=== PATIENT | male | born 1940 | race Caucasian/White ===

== ENCOUNTER 2016-06-04 15:48 | Inpatient (IN) | payer MEDICARE, BC ==
[2016-06-04] MEDS ORDERED: IV VANCOMYCIN PER PHARMACY 1 EACH MISC MISCELLANE PRN (19:38)
[2016-06-04] MEDS ORDERED: IPRATROPIUM-ALBUTEROL 3 ML NEB INHALATION PRN (19:38)
[2016-06-04] MEDS ORDERED: FLUTICASONE 50MCG/SPRAY NASAL 16GM EA NOSTRIL PRN (19:38)
[2016-06-04 20:01] LABS: Glucose,Whole Blood 172 mg/dL (75-99)
[2016-06-04] MEDS: IPRATROPIUM-ALBUTEROL 3 ML NEB INHALATION SCH (20:12)
[2016-06-04] MEDS: BUDESONIDE 1 MG/2 ML NEBU INHALATION SCH (20:13)
[2016-06-04] MEDS ORDERED: VANCOMYCIN 1,500 MG in SODIUM CHLORIDE 0.9% 250 ML IVPB ONE (20:15)
[2016-06-04] MEDS: HEPARIN SODIUM,PORCINE 5,000 UNIT/ML 1 ML VIAL SQ SCH (20:32)
[2016-06-04] MEDS: MELATONIN 3 MG TABLET PO SCH (20:33)
[2016-06-04] MEDS: MONTELUKAST 10 MG TAB PO SCH (20:34)
[2016-06-04 21:30] LABS: Anion Gap 9 mmol/L; Blood Urea Nitrogen 29 mg/dL (9-20); Calcium 8.6 mg/dL (8.4-10.2); Carbon Dioxide 33 mmol/L (22-30); Chloride 96 mmol/L (98-107); Glucose 185 mg/dL (74-99); Non-African American GFR(MDRD) >60 (>60 ml/min/1.73 sqM); Potassium 4.7 mmol/L (3.5-5.1); Sodium 138 mmol/L (137-145)
[2016-06-04] MEDS: INSULIN LISPRO (humaLOG) 300 UNIT/3 ML VIAL SQ SCH (21:30)
[2016-06-04] MEDS: ALPRAZolam 0.25 MG TAB PO PRN (21:31)
[2016-06-04] MEDS: VALSARTAN 80 MG TAB PO SCH (21:31)
[2016-06-04] MEDS: VALSARTAN 40 MG TAB PO SCH (21:31)
[2016-06-04] MEDS: ZILEUTON PO SCH (21:32)
[2016-06-04] MEDS: methylPREDNISolone SOD SUCCI 125 MG/2 ML VIAL IV SCH (23:43)
[2016-06-04] MEDS: CEFEPIME 2 GM in SODIUM CHLORIDE 0.9% 50 ML IVPB SCH (23:44)
[2016-06-05] MEDS: methylPREDNISolone SOD SUCCI 125 MG/2 ML VIAL IV SCH ×3 (05:43→17:24)
[2016-06-05] MEDS: CEFEPIME 2 GM in SODIUM CHLORIDE 0.9% 50 ML IVPB SCH ×2 (07:34→15:54)
[2016-06-05] MEDS: INSULIN LISPRO (humaLOG) 300 UNIT/3 ML VIAL SQ SCH ×4 (07:34→20:04)
[2016-06-05 07:35] LABS: Glucose,Whole Blood 131 mg/dL (75-99)
[2016-06-05] MEDS: IPRATROPIUM-ALBUTEROL 3 ML NEB INHALATION SCH ×4 (08:29→20:18)
[2016-06-05] MEDS: BUDESONIDE 1 MG/2 ML NEBU INHALATION SCH ×2 (08:29→20:19)
[2016-06-05 08:34] LABS: Basophils % (A) 0 %; CH 28.6; CHCM 31.5; Eosinophils % (A) 0 %; HCT 47.4 % (39.0-53.0); HDW 2.27; HGB 14.7 gm/dL (13.0-17.5); Luc # (Auto) 0.06; Luc % (Auto) 0; Lymphocytes # (A) 0.3 k/uL (1.0-4.8); Lymphocytes % (A) 2 %; MCH 28.1 pg (25.0-35.0); MCHC 30.9 g/dL (31.0-37.0); Mean Platelet Volume 6.8; Monocytes # (A) 0.2 k/uL (0-1.0); Monocytes % (A) 2 %; Neutrophils # (A) 12.1 k/uL (1.3-7.7); Neutrophils % (A) 95 %; RBC 5.21 m/uL (4.30-5.90); RDW 13.6 % (11.5-15.5); WBC 12.7 k/uL (3.8-10.6); WBC (Perox) 12.63
--- NOTE | 2016-06-05 08:46 | XR ---
EXAMINATION TYPE: XR chest 2V DATE OF EXAM: 06/05/2016 7:21 AM HISTORY: Shortness of breath. REFERENCE: Previous study dated 11/07/2015. FINDINGS: The lungs are overinflated. There is evidence of interstitial fibrosis. The heart is not en larged. There is chronic blunting of the CP angles. 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 IMPRESSION: 1. COPD. 2. INTERSTITIAL FIBROSIS. 3. FORESTIER'S DISEASE.
[2016-06-05 08:49] LABS: Anion Gap 8 mmol/L; Blood Urea Nitrogen 28 mg/dL (9-20); Calcium 8.5 mg/dL (8.4-10.2); Carbon Dioxide 31 mmol/L (22-30); Chloride 100 mmol/L (98-107); Glucose 138 mg/dL (74-99); Non-African American GFR(MDRD) >60 (>60 ml/min/1.73 sqM); Potassium 4.8 mmol/L (3.5-5.1); Sodium 139 mmol/L (137-145)
[2016-06-05] MEDS: VANCOMYCIN 1,500 MG in SODIUM CHLORIDE 0.9% 250 ML IVPB SCH ×2 (08:53→20:01)
[2016-06-05] MEDS: VALSARTAN 40 MG TAB PO SCH ×2 (08:53→20:10)
[2016-06-05] MEDS: ZILEUTON PO SCH ×2 (08:53→20:06)
[2016-06-05] MEDS: SERTRALINE 100 MG TAB PO SCH (08:53)
[2016-06-05] MEDS: HEPARIN SODIUM,PORCINE 5,000 UNIT/ML 1 ML VIAL SQ SCH ×2 (08:53→20:06)
[2016-06-05] MEDS: POLYETHYLENE GLYCOL 3350 17 GM POWD.PACK PO SCH (08:53)
[2016-06-05] MEDS: VALSARTAN 80 MG TAB PO SCH ×2 (08:53→20:10)
[2016-06-05] MEDS: PANTOPRAZOLE 40 MG/10 ML VIAL IVP SCH (08:53)
[2016-06-05] MEDS: ASPIRIN 81 MG CHEW PO SCH (08:53)
[2016-06-05] MEDS ORDERED: VALSARTAN 80 MG TAB PO SCH (09:00)
[2016-06-05 12:05] LABS: Glucose,Whole Blood 164 mg/dL (75-99)
[2016-06-05] MEDS: CHOLECALCIFEROL 1,000 UNIT TAB PO SCH (12:10)
[2016-06-05] MEDS ORDERED: TEMAZEPAM 15 MG CAP PO PRN (13:56)
[2016-06-05] MEDS ORDERED: NON-FORMULARY DRUG (Aspirin Ec 81 MG) PO SCH (14:00)
[2016-06-05 14:06] LABS: Hemoglobin A1C 5.9 % (4.2-6.1)
--- NOTE | 2016-06-05 14:06 | P.CNPUL ---
History of Present Illness Consult date: 06/05/16 Reason for consult: dyspnea, cough, COPD, pulmonary fibrosis Chief complaint: Shortness of breath History of present illness: This is a 75-year-old gentleman who was admitted initially to [facility]. The patient apparently was seen there by Dr. Michael and then transferred down to see us here. He has a history of underlying COPD and hypertension. He was seeing a new car sales manager in the [place] area. His new car sales manager is old and he states that he's going to retire soon and apparently Dr. Michael recommended that he come down here. I actually put him on the schedule to be seen on Wednesday and . He has a well-established history of COPD. He was a heavy smoker in the past. The patient also apparently has a history of alcohol abuse. The patient was taking out reasonably good medications but was overusing his Pulmicort which he uses sometimes 2 puffs 5 times a day. Pulmicort is a twice a day medication. Anyway he came into the hospital initially with complaints of shortness of breath chest tightness wheezing and cough. Coughing up some phlegm. Sounds like he may have some underlying pulmonary fibrosis and/or bronchiectasis. Review of Systems A 12 point review of system is positive for shortness of breath chest tightness wheezing cough phlegm production. His cough is reminiscent somebody with tracheal bronchomalacia is at [id number] vibratory or barky or seal-like. Past Medical History Past Medical History: Asthma, Hyperlipidemia, Hypertension, Myocardial Infarction (MT), Pneumonia Additional Past Medical History / Comment(s): chronic constipation, hemorrhoids , diverticulosis.home 02 2 liters n/c at hs and prn, partial sbo(no sx ) Last Myocardial Infarction Date:: 2004 History of Any Multi-Drug Resistant Organisms: None Reported Past Surgical History: Cholecystectomy, Coronary Bypass/CABG, Heart Catheterization Additional Past Surgical History / Comment(s): 12/20/13 colonoscopy, 2005 Cabg-4 vessel.rt cataract. Past Anesthesia/Blood Transfusion Reactions: No Reported Reaction Past Psychological History: No Psychological Hx Reported Additional Psychological History / Comment(s): Pt resides alone. He uses no assistive device. He drives. Smoking Status: Former smoker Past Alcohol Use History: Rare Additional Past Alcohol Use History / Comment(s): Pt states he started smoking at age 16 yrs and quit about 18 yrs ago, ([id number]) carton per week. Past Drug Use History: None Reported - Past Family History Mother Family Medical History: Hypertension Additional Family Medical History / Comment(s): Mother at the age of 88yrs. Father Family Medical History: Cancer Additional Family Medical History / Comment(s): Father of prostate cancer at the age of 65 yrs. Medications and Allergies Home Medications Medication Instructions Recorded Confirmed Type Ipratropium/Albuterol Sulfate 3 ml INHALATION RT-QID 12/13/13 06/04/16 History [Duoneb 0.5 mg-3 mg/3 ml Soln] Budesonide [Pulmicort Flexhaler] 2 puff INHALATION RT-BID 11/07/15 06/04/16 History Montelukast [Singulair] 10 mg PO HS 11/07/15 06/04/16 History Ranitidine HCl [Zantac] 150 mg PO BID 11/07/15 06/04/16 History Valsartan 80 mg PO BID 11/07/15 06/04/16 History Aspirin EC [Ecotrin Low Dose] 81 mg PO DAILY 06/04/16 06/04/16 History Levofloxacin [Levaquin] 500 mg PO DAILY 06/04/16 06/04/16 History Mometasone/Formoterol [Dulera 200 2 puff INHALATION RT-BID 06/04/16 06/04/16 History Mcg/5 Mcg Inhaler] Polyethylene Glycol 3350 [Miralax] 17 gm PO BID 06/04/16 06/04/16 History Sertraline [Zoloft] 100 mg PO DAILY 06/04/16 06/04/16 History Ubidecarenone [Co Q-10] 100 mg PO DAILY 06/04/16 06/04/16 History Valsartan [Diovan] 40 mg PO BID 06/04/16 06/04/16 History Zileuton [Zyflo Cr] 1,200 mg PO BID 06/04/16 06/04/16 History Allergies Allergy/AdvReac Type Severity Reaction Status Date / Time No Known Allergies Allergy Verified 06/04/16 19:24 Physical Exam Osteopathic Statement: *. No significant issues noted on an osteopathic structural exam other than those noted in the History and Physical/Consult. Vitals: Vital Signs Temp Pulse Pulse Resp BP Pulse Ox 06/05/16 12:25 88 06/05/16 12:17 88 06/05/16 08:45 86 06/05/16 08:29 80 06/05/16 07:00 97 F L 76 16 159/90 98 06/04/16 22:16 96.0 F L 88 16 160/82 97 06/04/16 20:21 96 06/04/16 20:16 94 95 Intake and Output 06/04/16 06/05/16 06/05/16 22:59 06:59 14:59 Intake Total 590 300 890 Balance 590 300 890 Intake: IV 300 410 Cefepime 2 gm In Sodium 50 50 Chloride 0.9% 50 ml @ 100 mls/hr IVPB Q8HR MARIO Rx# :[id number] NS @ 20 ml/hr 110 Vancomycin 1,500 mg In 250 250 Sodium Chloride 0.9% 250 ml @ 125 mls/hr IVPB ONCE ONE Rx#:[id number] Oral 590 480 Other: Voiding Method Urinal # Voids 2 2 Weight 81.647 kg No acute distress, oriented 3. The patient coughs frequently. Is somewhat congested sounding cough. Mucous membranes are moist. Supple. Full range of motion. Normal. No thyromegaly. Neck veins are flat. Cardiovascular examination reveals regular rhythm rate. S1-S2 normal. Lungs reveal coarse rhonchi. Breath sounds are diminished. There is prolongation on forced maneuver. The patient wheezes and coughs on forced maneuver. Abdomen soft bowel sounds are heard. Extremities are intact. Results - Laboratory Findings CBC and BMP: 06/05/16 07:47 06/05/16 07:47 Abnormal lab findings: Abnormal Labs 06/04/16 06/04/16 06/05/16 20:00 20:24 07:26 WBC MCHC Neutrophils # Lymphocytes # Chloride 96 L Carbon Dioxide 33 H BUN 29 H Creatinine Glucose 185 H POC Glucose (mg/dL) 172 H 131 H 06/05/16 06/05/16 06/05/16 07:47 07:47 11:58 WBC 12.7 H MCHC 30.9 L Neutrophils # 12.1 H Lymphocytes # 0.3 L Chloride Carbon Dioxide 31 H BUN 28 H Creatinine 0.64 L Glucose 138 H POC Glucose (mg/dL) 164 H - Diagnostic Findings Chest x-ray: image reviewed (We will evaluate the chest x-ray labs and medications.) Assessment and Plan Plan: Plan dated 06/05/2016 The patient's medications x-rays and labs are reviewed. We put him in the schedule for [facility] on Wednesday the at 9 AM. He'll need a full pulmonary function test a 6 minute walk distance. In the short-term, he needs DuoNeb 4 times a day. And when necessary Pulmicort 1 mg twice a day mixed with performance twice a day Solu-Medrol 60 every 6 and some pleural oral antibiotic. Also, a flutter valve would be important as would be something for cough. Additional recommendations suggestions are forthcoming. Prognosis is guarded. Time with Patient: Greater than 30
[2016-06-05] MEDS: BENZONATATE 100 MG CAP PO SCH ×2 (15:54→20:11)
[2016-06-05 16:42] LABS: Appearance,Urine Clear (Clear); Bacteria,Urine Rare /hpf; Bilirubin,Urine Negative (Negative); Glucose,Urine (UA) Negative (Negative); Ketones,Urine Negative (Negative); Leukocyte Esterase,Urine Negative (Negative); Mucus,Urine Rare /hpf; Nitrite,Urine Negative (Negative); Particle Count 1530; Protein,Urine 1+ (Negative); RBC,Urine 2 /hpf (0-5); Specific Gravity,Urine 1.026 (1.001-1.035); Squamous Epithelial Cell,Urine <1 /hpf (0-4); UA Billing (MACRO vs. MICRO) MICRO; Urobilinogen,Urine <2.0 mg/dL (<2.0); WBC,Urine 2 /hpf (0-5)
--- NOTE | 2016-06-05 16:44 | HP ---
DATE OF ADMISSION: 06/04/2016 CHIEF COMPLAINT: Shortness of breath and cough and sputum. HISTORY OF PRESENT ILLNESS: This 75-year-old gentleman with past medical history of asthma, chronic obstructive pulmonary disease, hypertension, hyperlipidemia, history of chronic constipation, hemorrhoids, history of coronary artery disease, coronary artery bypass grafting, being followed by ham doctor in [place] was admitted to [facility] for the last 4 or 5 days because of shortness of breath and COPD and tracheobronchitis. Because of the lack of improvement, the patient was referred to [facility] the patient was admitted to the hospital for further evaluation and treatment. There is no history of fever, rigors or chills. No history of headache, loss of consciousness or seizures. Chest x-ray showed interstitial fibrosis and Dr. Rosen's evaluation in progress also. Past medical history of asthma, hypertension, hyperlipidemia, history of myocardial infarction, history of pneumonia, history of COPD, history of chronic diverticulosis, CAD, CABG, cholecystectomy, history of cardiac catheterization. Medications prior to admission include home medications are: 1. Zyflozr 1200 mg p.o. b.i.d. 2. Dulera 200/5, 2 puffs b.i.d. 3. Levaquin 500 mg daily. 4. Coenzyme Q 100 mg daily. 5. Zoloft 20 mg daily. 6. Diovan 40 mg p.o. b.i.d. 7. Valsartan 80 mg p.o. b.i.d. 8. Zantac 150 mg p.o. b.i.d. 9. Miralax 17 gm p.o. b.i.d. 10. Singulair 10 mg q.h.s. 11. DuoNeb q.i.d. and p.r.n. 12. Pulmicort 2 puffs b.i.d. 13. Ecotrin 81 mg p.o. daily. ALLERGIES: None. FAMILY HISTORY: History of hypertension in the family. Mother of 88. SOCIAL HISTORY: Remote history of smoking. Occasional alcohol intake. REVIEW OF SYSTEMS: ENT: The patient uses glasses. Otherwise, no diminished hearing. CARDIOVASCULAR: No angina or palpitations. RESPIRATORY: As mentioned earlier. GI: As mentioned earlier. GENITOURINARY: No dysuria or retention. CENTRAL NERVOUS SYSTEM: No numbness or weakness. ALLERGY/IMMUNOLOGY: As mentioned earlier. HEMATOLOGY/ONCOLOGY: History of anemia. ENDOCRINE: No history of diabetes, hypothyroidism. CONSTITUTIONAL: As mentioned earlier. Dermatology: Negative. Rheumatology: Negative. PSYCHIATRY: As mentioned earlier. PHYSICAL EXAMINATION: The patient is alert and oriented times three. Pulse is 80. The blood pressure is 159/96, temperature 97 degrees, pulse ox 98% on room air. HEENT: Conjunctivae normal. NECK: No jugular venous distention. No carotid bruit. No lymph node enlargement. CARDIOVASCULAR: S1, S2 muffled. No S3, no S4. RESPIRATORY: Breath sounds diminished at the bases. Bilateral scattered rhonchi and crackles and early also in the posterior part. Otherwise, expiratory wheezing also present. Chest is mildly emphysematous. ABDOMEN: Soft, nontender. No mass palpable. Legs: No edema, no swelling. Nervous system: Higher function as mentioned. Cranial nerves II through XII grossly intact. No focal motor or sensory deficits. LYMPHATICS: No lymph nodes palpable in the neck, axillae or groin. SKIN: No ulcer, rash or bleeding. Labs at this time WBC 12.7, hemoglobin is 14.7, sodium 139, potassium 4.8. Glucose noted. ASSESSMENT: 1. Chronic obstructive pulmonary disease, acute exacerbation, with acute purulent tracheobronchitis or bronchopneumonia bilateral. Possibly interstitial fibrosis. 2. disease in the spine. 3. Increased WBC. 4. Remote history of nicotine dependence. 5. Increased random blood sugar, possibly secondary to steroids. 6. History of asthma. 7. Hyperlipidemia. 8. Hypertension. 9. History of myocardial infarction. 10. History of pneumonia. 11. History of chronic constipation. 12. History of diverticulosis. 13. Chronic hypoxic respiratory failure on 2 liters home O2 nasal cannula. 14. Coronary artery disease, coronary artery bypass grafting. 15. History of cholecystectomy. 16. Remote history nicotine dependence. 17. FULL CODE. RECOMMENDATIONS AND DISCUSSION: In this 75-year-old gentleman who presented with multiple complex medical issues, we will monitor the patient closely. Continue the current medications. Continue symptomatic treatment. We will optimize the bronchodilator treatment, continue with IV steroids and empiric antibiotics. Otherwise consult Dr. Rosen. Resume the home medications. DVT prophylaxis. Guarded prognosis because of multiple complex medical issues. Further recommendations to follow. See orders for further details. The patient was started on Cefepime, IV Cefepime and vancomycin. Continue to monitor. MTDD
[2016-06-05 17:44] LABS: Glucose,Whole Blood 130 mg/dL (75-99)
[2016-06-05 20:03] LABS: Glucose,Whole Blood 262 mg/dL (75-99)
[2016-06-05] MEDS: MELATONIN 3 MG TABLET PO SCH (20:06)
[2016-06-05] MEDS: FAMOTIDINE 20 MG TAB PO SCH (20:06)
[2016-06-05] MEDS: MONTELUKAST 10 MG TAB PO SCH (20:06)
[2016-06-05] MEDS: FORMOTEROL FUMARATE 20 MCG/2 ML NEBU INHALATION SCH (20:19)
[2016-06-05] MEDS: ALPRAZolam 0.25 MG TAB PO PRN (20:53)
[2016-06-06] MEDS: methylPREDNISolone SOD SUCCI 125 MG/2 ML VIAL IV SCH ×4 (00:07→17:08)
[2016-06-06] MEDS: CEFEPIME 2 GM in SODIUM CHLORIDE 0.9% 50 ML IVPB SCH ×3 (00:07→15:25)
[2016-06-06] MEDS ORDERED: VANCOMYCIN TROUGH DUE 1 EACH MISC MISCELLANE ONE (07:00)
[2016-06-06 07:07] LABS: Glucose,Whole Blood 119 mg/dL (75-99)
[2016-06-06 07:33] LABS: Basophils % (A) 0 %; CH 28.8; CHCM 32.2; Eosinophils % (A) 0 %; HCT 43.9 % (39.0-53.0); HDW 2.31; HGB 13.7 gm/dL (13.0-17.5); Luc # (Auto) 0.09; Luc % (Auto) 1; Lymphocytes # (A) 0.3 k/uL (1.0-4.8); Lymphocytes % (A) 2 %; MCH 28.1 pg (25.0-35.0); MCHC 31.2 g/dL (31.0-37.0); MCV 89.9 fL (80.0-100.0); Mean Platelet Volume 6.7; Monocytes # (A) 0.3 k/uL (0-1.0); Monocytes % (A) 2 %; Neutrophils # (A) 15.1 k/uL (1.3-7.7); Neutrophils % (A) 95 %; RBC 4.88 m/uL (4.30-5.90); RDW 13.7 % (11.5-15.5); WBC 15.8 k/uL (3.8-10.6); WBC (Perox) 16.44
[2016-06-06 07:36] LABS: ALT 31 U/L (21-72); AST 14 U/L (17-59); Alkaline Phosphatase 57 U/L (38-126); Anion Gap 3 mmol/L; Bilirubin, Delta 0.2 mg/dL (0.0-0.2); Blood Urea Nitrogen 27 mg/dL (9-20); Calcium 8.1 mg/dL (8.4-10.2); Carbon Dioxide 32 mmol/L (22-30); Chloride 101 mmol/L (98-107); Glucose 133 mg/dL (74-99); Non-African American GFR(MDRD) >60 (>60 ml/min/1.73 sqM); Potassium 4.6 mmol/L (3.5-5.1); Sodium 136 mmol/L (137-145); Total Bilirubin 0.6 mg/dL (0.2-1.3)
[2016-06-06] MEDS: HEPARIN SODIUM,PORCINE 5,000 UNIT/ML 1 ML VIAL SQ SCH ×2 (07:41→20:17)
[2016-06-06] MEDS: BENZONATATE 100 MG CAP PO SCH ×3 (07:41→20:19)
[2016-06-06] MEDS: FAMOTIDINE 20 MG TAB PO SCH ×2 (07:41→20:17)
[2016-06-06] MEDS: ASPIRIN 81 MG CHEW PO SCH (07:41)
[2016-06-06] MEDS: ZILEUTON PO SCH ×2 (07:42→20:16)
[2016-06-06] MEDS: PANTOPRAZOLE 40 MG/10 ML VIAL IVP SCH (07:42)
[2016-06-06] MEDS: POLYETHYLENE GLYCOL 3350 17 GM POWD.PACK PO SCH (07:43)
[2016-06-06] MEDS: VALSARTAN 40 MG TAB PO SCH ×2 (07:44→20:19)
[2016-06-06] MEDS: SERTRALINE 100 MG TAB PO SCH (07:44)
[2016-06-06] MEDS: VALSARTAN 80 MG TAB PO SCH ×2 (07:44→20:18)
[2016-06-06] MEDS: INSULIN LISPRO (humaLOG) 300 UNIT/3 ML VIAL SQ SCH ×4 (07:52→20:19)
[2016-06-06] MEDS ORDERED: NON-FORMULARY DRUG (Ubidecarenone [Co Q-10] 100 MG) PO SCH (09:00)
[2016-06-06] MEDS: IPRATROPIUM-ALBUTEROL 3 ML NEB INHALATION SCH ×4 (09:00→19:13)
[2016-06-06] MEDS: BUDESONIDE 1 MG/2 ML NEBU INHALATION SCH ×2 (09:00→19:13)
[2016-06-06] MEDS: FORMOTEROL FUMARATE 20 MCG/2 ML NEBU INHALATION SCH ×2 (09:00→19:13)
[2016-06-06] MEDS: VANCOMYCIN 1,500 MG in SODIUM CHLORIDE 0.9% 250 ML IVPB SCH (09:30)
[2016-06-06] MEDS: CHOLECALCIFEROL 1,000 UNIT TAB PO SCH (11:21)
[2016-06-06] MEDS: MULTIVITAMINS, THERA 1 EACH TAB PO SCH (11:21)
[2016-06-06 12:01] LABS: Glucose,Whole Blood 130 mg/dL (75-99)
--- NOTE | 2016-06-06 13:05 | P.PN ---
Subjective 75-year-old gentleman with a history of underlying COPD and tracheal bronchomalacia. Transferred down from [facility]. Doing better today. I'm planning to see him in to [place] [facility] on Wednesday. He is on all the usual medications. Feeling much better. Probably could be discharged here tomorrow or Wednesday. His complaints included cough wheezing shortness of breath and phlegm production. These have all been reduced since we started seeing him. Objective - Vital Signs Vital signs: Vital Signs Temp 97.4 F L 06/06/16 07:00 Pulse 92 06/06/16 12:52 Resp 16 06/06/16 08:00 BP 163/82 06/06/16 07:00 Pulse Ox 97 06/06/16 07:00 Intake & Output 06/05/16 06/06/16 06/06/16 18:59 06:59 18:59 Intake Total 1370 985 Balance 1370 985 Intake: IV 410 385 Cefepime 2 gm In Sodium 50 Chloride 0.9% 50 ml @ 100 mls/hr IVPB Q8HR MARIO Rx# :[id number] NS @ 20 ml/hr 110 260 Vancomycin 1,500 mg In 250 125 Sodium Chloride 0.9% 250 ml @ 125 mls/hr IVPB ONCE ONE Rx#:[id number] Oral 960 600 Other: Voiding Method Urinal Urinal # Voids 1 1 - Exam No acute distress, oriented 3. HEENT examination is grossly unremarkable. Mucous membranes are moist. Neck supple. Full range of motion. No adenopathy. Cardio vascular examination reveals distant heart sounds. Heart sounds are obscured by loud abnormal lung sounds. S1 and S2 appear normal. No murmur. Lungs reveal some diffuse scattered rhonchi. There are improved. Breath sounds are diminished. A few scattered crackles. Some expiratory wheezes noted on forced maneuver. Abdomen soft Extremities are intact. - Labs CBC & Chem 7: 06/06/16 06:58 06/06/16 06:58 Labs: Abnormal Lab Results - Last 24 Hours (Table) 06/05/16 06/05/16 06/05/16 Range/Units 16:30 17:09 20:02 WBC (3.8-10.6) k/uL Neutrophils # (1.3-7.7) k/uL Lymphocytes # (1.0-4.8) k/uL Sodium (137-145) mmol/L Carbon Dioxide (22-30) mmol/L BUN (9-20) mg/dL Creatinine (0.66-1.25) mg/dL Glucose (74-99) mg/dL POC Glucose (mg/dL) 130 H 262 H (75-99) mg/dL Calcium (8.4-10.2) mg/dL AST (17-59) U/L Total Protein (6.3-8.2) g/dL Albumin (3.5-5.0) g/dL Urine Protein 1+ H (Negative) Urine Bacteria Rare H (None) /hpf Hyaline Casts 4 H (0-2) /lpf Urine Mucus Rare H (None) /hpf 06/06/16 06/06/16 06/06/16 Range/Units 06:58 06:58 06:58 WBC 15.8 H (3.8-10.6) k/uL Neutrophils # 15.1 H (1.3-7.7) k/uL Lymphocytes # 0.3 L (1.0-4.8) k/uL Sodium 136 L (137-145) mmol/L Carbon Dioxide 32 H (22-30) mmol/L BUN 27 H (9-20) mg/dL Creatinine 0.60 L (0.66-1.25) mg/dL Glucose 133 H (74-99) mg/dL POC Glucose (mg/dL) 119 H (75-99) mg/dL Calcium 8.1 L (8.4-10.2) mg/dL AST 14 L (17-59) U/L Total Protein 5.0 L (6.3-8.2) g/dL Albumin 2.7 L (3.5-5.0) g/dL Urine Protein (Negative) Urine Bacteria (None) /hpf Hyaline Casts (0-2) /lpf Urine Mucus (None) /hpf 06/06/16 Range/Units 11:41 WBC (3.8-10.6) k/uL Neutrophils # (1.3-7.7) k/uL Lymphocytes # (1.0-4.8) k/uL Sodium (137-145) mmol/L Carbon Dioxide (22-30) mmol/L BUN (9-20) mg/dL Creatinine (0.66-1.25) mg/dL Glucose (74-99) mg/dL POC Glucose (mg/dL) 130 H (75-99) mg/dL Calcium (8.4-10.2) mg/dL AST (17-59) U/L Total Protein (6.3-8.2) g/dL Albumin (3.5-5.0) g/dL Urine Protein (Negative) Urine Bacteria (None) /hpf Hyaline Casts (0-2) /lpf Urine Mucus (None) /hpf Assessment and Plan (1) COPD with exacerbation Status: Acute Plan: Plan dated 06/05/2016 The patient's medications x-rays and labs are reviewed. We put him in the schedule for [facility] on Wednesday the at 9 AM. He'll need a full pulmonary function test a 6 minute walk distance. In the short-term, he needs DuoNeb 4 times a day. And when necessary Pulmicort 1 mg twice a day mixed with performance twice a day Solu-Medrol 60 every 6 and some pleural oral antibiotic. Also, a flutter valve would be important as would be something for cough. Additional recommendations suggestions are forthcoming. Prognosis is guarded. Plan dated 06/06/2016 The patient is doing better. Hopefully discharge either Wednesday or Wednesday. Hopefully see him in to [facility] on Wednesday at 9 AM. We' ll continue to follow. Prognosis is guarded. I suspect he'll get out of the hospital in the next day or so. Time with Patient: Less than 30
[2016-06-06 16:44] LABS: Glucose,Whole Blood 174 mg/dL (75-99)
[2016-06-06 20:01] LABS: Glucose,Whole Blood 160 mg/dL (75-99)
[2016-06-06] MEDS: MONTELUKAST 10 MG TAB PO SCH (20:17)
[2016-06-06] MEDS: MELATONIN 3 MG TABLET PO SCH (20:17)
--- NOTE | 2016-06-06 20:19 | PN ---
DATE OF SERVICE: 06/06/2016 This 75-year-old gentleman was admitted exacerbation, also had a possible bronchopneumonia. The patient has some shortness of breath and cough. No chest pain. No palpitations. No fever. On exam, alert and oriented times three. Pulse is 92, blood pressure 160/82, respiratory rate 16, temperature 97.4, pulse ox 97% on room air. HEENT: Conjunctivae normal . NECK: No JVD. CARDIOVASCULAR: S1, S2 muffled. RESPIRATORY: Breath sounds diminished in the bases. Bilateral scattered rhonchi and crackles. ABDOMEN: Soft, nontender. No mass palpable. LEGS: No edema. No swelling. CENTRAL NERVOUS SYSTEM: No focal deficits. LABS: At this time show WBC 15.8, hemoglobin 13.0, sodium 136. Albumin is 2.7. Other labs noted. ASSESSMENT : 1. Chronic obstructive pulmonary disease exacerbation, with acute purulent tracheobronchitis or bronchopneumonia with bilateral possible interstitial fibrosis with failure of outpatient treatment. 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 3. Increased WBC. 4. Remote history of nicotine dependence. 5. Increased random blood sugar, possibly secondary to steroids. 6. History of asthma. 7. Hyperlipidemia. 8. Hypertension. 9. History of myocardial infarction. 10. History of pneumonia. 11. History of chronic constipation. 12. History of diverticulosis. 13. Chronic hypoxic respiratory failure on 2 liters home O2 nasal cannula. 14. History of coronary artery disease, coronary artery bypass grafting. 15. History of cholecystectomy. 16. Remote history of nicotine dependence. 17. FULL CODE. RECOMMENDATIONS AND DISCUSSION: In this 75-year-old gentleman who presented with multiple complex medical issues, we will monitor the patient closely. Continue the current medications, continue symptomatic treatment. At this time, I recommend to continue with broad-spectrum IV antibiotics, bronchodilators, continue with IV steroids. Closely follow with Dr. Rosen. Guarded prognosis because of multiple complex medical issues. Further recommendations to follow.
[2016-06-06] MEDS: VANCOMYCIN 1,750 MG in SODIUM CHLORIDE 0.9% 250 ML IVPB SCH (20:25)
[2016-06-06] MEDS: ALPRAZolam 0.25 MG TAB PO PRN (20:25)
[2016-06-07] MEDS: CEFEPIME 2 GM in SODIUM CHLORIDE 0.9% 50 ML IVPB SCH ×4 (00:06→23:40)
[2016-06-07] MEDS: methylPREDNISolone SOD SUCCI 125 MG/2 ML VIAL IV SCH ×3 (00:11→12:31)
[2016-06-07 07:06] LABS: Glucose,Whole Blood 122 mg/dL (75-99)
[2016-06-07 07:16] LABS: Basophils % (A) 0 %; CH 28.8; CHCM 32.2; Eosinophils % (A) 0 %; HCT 41.3 % (39.0-53.0); HGB 13.4 gm/dL (13.0-17.5); Luc # (Auto) 0.09; Luc % (Auto) 1; Lymphocytes # (A) 0.2 k/uL (1.0-4.8); Lymphocytes % (A) 2 %; MCH 29.1 pg (25.0-35.0); MCHC 32.4 g/dL (31.0-37.0); MCV 89.8 fL (80.0-100.0); Mean Platelet Volume 6.7; Monocytes # (A) 0.3 k/uL (0-1.0); Monocytes % (A) 3 %; Neutrophils # (A) 9.5 k/uL (1.3-7.7); Neutrophils % (A) 94 %; RDW 13.7 % (11.5-15.5); WBC 10.1 k/uL (3.8-10.6); WBC (Perox) 10.75
[2016-06-07 07:29] LABS: Anion Gap 4 mmol/L; Blood Urea Nitrogen 24 mg/dL (9-20); Carbon Dioxide 32 mmol/L (22-30); Chloride 100 mmol/L (98-107); Glucose 135 mg/dL (74-99); Non-African American GFR(MDRD) >60 (>60 ml/min/1.73 sqM); Potassium 4.7 mmol/L (3.5-5.1); Sodium 136 mmol/L (137-145)
[2016-06-07] MEDS: VANCOMYCIN 1,750 MG in SODIUM CHLORIDE 0.9% 250 ML IVPB SCH ×2 (07:58→19:30)
[2016-06-07] MEDS: INSULIN LISPRO (humaLOG) 300 UNIT/3 ML VIAL SQ SCH ×4 (08:02→20:27)
[2016-06-07] MEDS: FAMOTIDINE 20 MG TAB PO SCH ×2 (08:04→20:27)
[2016-06-07] MEDS: BENZONATATE 100 MG CAP PO SCH ×3 (08:04→20:25)
[2016-06-07] MEDS: ASPIRIN 81 MG CHEW PO SCH (08:04)
[2016-06-07] MEDS: HEPARIN SODIUM,PORCINE 5,000 UNIT/ML 1 ML VIAL SQ SCH ×2 (08:04→20:27)
[2016-06-07] MEDS: SERTRALINE 100 MG TAB PO SCH (08:05)
[2016-06-07] MEDS: POLYETHYLENE GLYCOL 3350 17 GM POWD.PACK PO SCH (08:05)
[2016-06-07] MEDS: ZILEUTON PO SCH ×2 (08:05→20:26)
[2016-06-07] MEDS: VALSARTAN 40 MG TAB PO SCH ×2 (08:06→20:26)
[2016-06-07] MEDS: VALSARTAN 160 MG TAB PO SCH ×2 (08:08→20:25)
[2016-06-07] MEDS: BUDESONIDE 1 MG/2 ML NEBU INHALATION SCH ×2 (09:06→19:18)
[2016-06-07] MEDS: IPRATROPIUM-ALBUTEROL 3 ML NEB INHALATION SCH ×4 (09:06→19:18)
[2016-06-07] MEDS: FORMOTEROL FUMARATE 20 MCG/2 ML NEBU INHALATION SCH ×2 (09:06→19:18)
[2016-06-07 11:32] LABS: Glucose,Whole Blood 133 mg/dL (75-99)
[2016-06-07] MEDS: MULTIVITAMINS, THERA 1 EACH TAB PO SCH (12:31)
[2016-06-07] MEDS: CHOLECALCIFEROL 1,000 UNIT TAB PO SCH (12:31)
[2016-06-07] MEDS: HYDROcodone/APAP 5-325MG 1 EACH TAB PO PRN ×2 (13:28→18:49)
--- NOTE | 2016-06-07 14:46 | P.PN ---
Subjective 75-year-old gentleman with a history of underlying COPD and tracheal bronchomalacia. Transferred down from [facility]. Doing better today. I'm planning to see him in to [place] [facility] on Wednesday. He is on all the usual medications. Feeling much better. Probably could be discharged here tomorrow or Wednesday. His complaints included cough wheezing shortness of breath and phlegm production. These have all been reduced since we started seeing him. Progress note dated 06/07/2016 This is a 75-year-old male with a history of COPD and tracheal bronchomalacia. He was transferred down from [facility]. Doing much better. Feeling much better. Still short of breath. I told him that he come see me in the [place] [facility] on Wednesday in the morning. Hopefully get out here before then. So wheezing. Still congested. Still short of breath. Coughing up some phlegm. No fever no chills. No nausea vomiting or diarrhea. Objective - Vital Signs Vital signs: Vital Signs Temp 97.7 F 06/07/16 07:00 Pulse 84 06/07/16 12:45 Resp 18 06/07/16 07:00 BP 171/79 06/07/16 07:00 Pulse Ox 95 06/07/16 07:00 Intake & Output 06/06/16 06/07/16 06/07/16 18:59 06:59 18:59 Intake Total 440 1030 446 Output Total 650 350 Balance 440 380 96 Intake: IV 190 200 196 Cefepime 2 gm In Sodium 50 50 Chloride 0.9% 50 ml @ 100 mls/hr IVPB Q8HR MARIO Rx# :[id number] NS @ 20 ml/hr 140 200 146 Intake, IV Titration 250 250 Amount Vancomycin 1,750 mg In 250 250 Sodium Chloride 0.9% 250 ml @ 125 mls/hr IVPB Q12H MARIO Rx#:[id number] Oral 830 Output: Urine 650 350 Other: Voiding Method Toilet Toilet Urinal Urinal # Voids 3 2 4 # Bowel Movements 1 1 - Exam No acute distress, oriented 3. HEENT examination is grossly unremarkable. Mucous membranes are moist. Neck supple. Full range of motion. No adenopathy. Cardio vascular examination reveals distant heart sounds. Heart sounds are obscured by loud abnormal lung sounds. S1 and S2 appear normal. No murmur. Lungs reveal some diffuse scattered rhonchi. There are improved. Breath sounds are diminished. A few scattered crackles. Some expiratory wheezes noted on forced maneuver. Abdomen soft Extremities are intact. - Labs CBC & Chem 7: 06/07/16 06:48 06/07/16 06:48 Labs: Abnormal Lab Results - Last 24 Hours (Table) 06/06/16 06/06/16 06/07/16 Range/Units 16:42 20:00 06:48 Neutrophils # 9.5 H (1.3-7.7) k/uL Lymphocytes # 0.2 L (1.0-4.8) k/uL Sodium (137-145) mmol/L Carbon Dioxide (22-30) mmol/L BUN (9-20) mg/dL Creatinine (0.66-1.25) mg/dL Glucose (74-99) mg/dL POC Glucose (mg/dL) 174 H 160 H (75-99) mg/dL Calcium (8.4-10.2) mg/dL 06/07/16 06/07/16 06/07/16 Range/Units 06:48 07:06 11:31 Neutrophils # (1.3-7.7) k/uL Lymphocytes # (1.0-4.8) k/uL Sodium 136 L (137-145) mmol/L Carbon Dioxide 32 H (22-30) mmol/L BUN 24 H (9-20) mg/dL Creatinine 0.63 L (0.66-1.25) mg/dL Glucose 135 H (74-99) mg/dL POC Glucose (mg/dL) 122 H 133 H (75-99) mg/dL Calcium 8.0 L (8.4-10.2) mg/dL Assessment and Plan (1) COPD with exacerbation Status: Acute Plan: Plan dated 06/05/2016 The patient's medications x-rays and labs are reviewed. We put him in the schedule for [facility] on Wednesday the at 9 AM. He'll need a full pulmonary function test a 6 minute walk distance. In the short-term, he needs DuoNeb 4 times a day. And when necessary Pulmicort 1 mg twice a day mixed with performance twice a day Solu-Medrol 60 every 6 and some pleural oral antibiotic. Also, a flutter valve would be important as would be something for cough. Additional recommendations suggestions are forthcoming. Prognosis is guarded. Plan dated 06/06/2016 The patient is doing better. Hopefully discharge either Wednesday or Wednesday. Hopefully see him in to [facility] on Wednesday at 9 AM. We' ll continue to follow. Prognosis is guarded. I suspect he'll get out of the hospital in the next day or so. Plan dated 06/07/2016 The patient does seem to be improving. Will continue on her current medications including short acting beta agonists short acting muscarinic antagonist long-acting beta agonist inhaled corticosteroids and systemic corticosteroids. Also on antibiotics. The flutter valve is helping. Hopefully he'll be up with see me on Wednesday morning it [facility]. Time with Patient: Less than 30
[2016-06-07] MEDS: hydrALAZINE HCL 20 MG/ML 1 ML VIAL IVP PRN (15:40)
[2016-06-07 16:28] LABS: Glucose,Whole Blood 125 mg/dL (75-99)
[2016-06-07] MEDS: methylPREDNISolone SOD SUCCI 40 MG/ML 1 ML VIAL IV SCH ×2 (16:29→23:41)
[2016-06-07 20:16] LABS: Glucose,Whole Blood 195 mg/dL (75-99)
[2016-06-07] MEDS: MELATONIN 3 MG TABLET PO SCH (20:24)
[2016-06-07] MEDS: MONTELUKAST 10 MG TAB PO SCH (20:28)
[2016-06-07] MEDS: ALPRAZolam 0.25 MG TAB PO PRN (20:33)
[2016-06-08] MEDS: VALSARTAN 160 MG TAB PO SCH ×2 (06:57→20:27)
[2016-06-08] MEDS: VALSARTAN 40 MG TAB PO SCH ×2 (06:57→20:26)
[2016-06-08 07:10] LABS: Glucose,Whole Blood 97 mg/dL (75-99)
--- NOTE | 2016-06-08 07:47 | PN ---
DATE OF SERVICE: 06/07/2016 This 75 -year-old gentleman was admitted to the hospital with COPD acute exacerbation is improving significantly. No chest pain. No palpitations. No fever. The patient has some cough and sputum also. On exam, alert and oriented times three. Pulse is 86, blood pressure ntd respirations 18. Temperature normal. Pulse ox 94% on 3 L. Temperature 97.7. HEENT: Conjunctivae normal. Oral mucosa moist. NECK: No jugular venous distention. No carotid bruit. No lymph node enlargement. CARDIOVASCULAR: S1, S2 muffled. RESPIRATORY: Breath sounds diminished at the bases. Bilateral scattered rhonchi. Expiratory wheezing also. Come crackles also present. ABDOMEN: Soft, nontender, no mass palpable. LEGS: No edema. No swelling. CENTRAL NERVOUS SYSTEM: No focal deficits. Labs are CBC within normal limits. Sodium 136. ASSESSMENT: 1. Chronic obstructive pulmonary disease, acute exacerbation, with acute purulent tracheobronchitis or bronchopneumonia with bilateral possible interstitial fibrosis with failure of outpatient treatment. 2. Forestiers disease of the spine. 3. Increased WBC. 4. Remote history of nicotine dependence. 5. Increased random blood sugar, possibly secondary to steroids. 6. History of asthma. 7. Hypertension. 8. History of hyperlipidemia. 9. History of myocardial infarction. 10. History of pneumonia. 11. History of chronic constipation. 12. History of diverticulosis. 13. Chronic hypoxic respiratory failure on 2 liters home O2 nasal cannula. 14. History of coronary artery disease, coronary artery bypass grafting. 15. History of cholecystectomy. 16. Remote history of nicotine dependence. 17. FULL CODE. RECOMMENDATIONS AND DISCUSSION: In this 75 -year-old gentleman who multiple complex medical issues, we will monitor the patient closely, continue the current medications, continue with symptomatic treatment. Otherwise, at this time, I would recommend to taper the steroids. Closely follow with Dr. Rosen. Increase ambulation. Check for home oxygen. Guarded prognosis because of multiple complex medical issues. Further recommendations to follow. MTDD
[2016-06-08 08:18] LABS: Basophils % (A) 0 %; CH 28.7; CHCM 31.7; Eosinophils % (A) 0 %; HCT 46.2 % (39.0-53.0); HDW 2.26; HGB 14.5 gm/dL (13.0-17.5); Luc % (Auto) 2; Lymphocytes # (A) 0.3 k/uL (1.0-4.8); Lymphocytes % (A) 3 %; MCH 28.5 pg (25.0-35.0); MCHC 31.4 g/dL (31.0-37.0); MCV 90.8 fL (80.0-100.0); Mean Platelet Volume 6.6; Monocytes # (A) 0.7 k/uL (0-1.0); Monocytes % (A) 7 %; Neutrophils # (A) 8.8 k/uL (1.3-7.7); Neutrophils % (A) 88 %; RBC 5.09 m/uL (4.30-5.90); RDW 13.8 % (11.5-15.5); WBC 9.9 k/uL (3.8-10.6); WBC (Perox) 10.31
[2016-06-08] MEDS: BUDESONIDE 1 MG/2 ML NEBU INHALATION SCH ×2 (08:27→20:05)
[2016-06-08] MEDS: FORMOTEROL FUMARATE 20 MCG/2 ML NEBU INHALATION SCH ×2 (08:27→20:05)
[2016-06-08] MEDS: IPRATROPIUM-ALBUTEROL 3 ML NEB INHALATION SCH ×4 (08:27→20:05)
[2016-06-08] MEDS: INSULIN LISPRO (humaLOG) 300 UNIT/3 ML VIAL SQ SCH ×4 (08:30→20:22)
[2016-06-08] MEDS: methylPREDNISolone SOD SUCCI 40 MG/ML 1 ML VIAL IV SCH (08:31)
[2016-06-08 08:32] LABS: Anion Gap 6 mmol/L; Blood Urea Nitrogen 25 mg/dL (9-20); Calcium 8.2 mg/dL (8.4-10.2); Carbon Dioxide 29 mmol/L (22-30); Chloride 101 mmol/L (98-107); Glucose 99 mg/dL (74-99); Non-African American GFR(MDRD) >60 (>60 ml/min/1.73 sqM); Potassium 4.8 mmol/L (3.5-5.1); Sodium 136 mmol/L (137-145)
[2016-06-08] MEDS: ASPIRIN 81 MG CHEW PO SCH (08:32)
[2016-06-08] MEDS: CEFEPIME 2 GM in SODIUM CHLORIDE 0.9% 50 ML IVPB SCH ×3 (08:32→23:10)
[2016-06-08] MEDS: FAMOTIDINE 20 MG TAB PO SCH ×2 (08:33→20:27)
[2016-06-08] MEDS: BENZONATATE 100 MG CAP PO SCH ×3 (08:33→20:26)
[2016-06-08] MEDS: POLYETHYLENE GLYCOL 3350 17 GM POWD.PACK PO SCH (08:33)
[2016-06-08] MEDS: HEPARIN SODIUM,PORCINE 5,000 UNIT/ML 1 ML VIAL SQ SCH ×2 (08:33→20:27)
[2016-06-08] MEDS: ZILEUTON PO SCH ×2 (08:33→20:25)
[2016-06-08] MEDS: SERTRALINE 100 MG TAB PO SCH (08:34)
[2016-06-08] MEDS: hydrALAZINE HCL 20 MG/ML 1 ML VIAL IVP PRN (08:52)
[2016-06-08] MEDS: VANCOMYCIN 1,750 MG in SODIUM CHLORIDE 0.9% 250 ML IVPB SCH ×2 (09:33→19:29)
[2016-06-08] MEDS ORDERED: RX INFO: IV CONTRAST WAS GIVEN 1 EACH MISC MISCELLANE PRN (10:12)
[2016-06-08 11:40] LABS: Glucose,Whole Blood 107 mg/dL (75-99)
--- NOTE | 2016-06-08 11:43 | CT ---
EXAMINATION TYPE: CT chest angio for PE DATE OF EXAM: 06/08/2016 11:33 AM COMPARISON: NONE HISTORY: progressive dyspnea, hypoxia, sob CT DLP: 308.4 mGycm CONTRAST: CT chest with contrast and 3D reconstruction with MIP imaging is performed with IV Contrast, patient injected with 100 mL of Omnipaque 350. Contrast-enhanced CT of the chest was performed through the course of the pulmonary arteries with mahogany g and mediastinal window settings submitted. 3D reconstruction with MIP imaging was also performed. PULMONARY ARTERIES: The pulmonary arteries and their major tributaries are patent. I do not see fany dence for sizable filling defect to suggest pulmonary embolic process. LUNGS: The lungs are hyperinflated compatible with COPD. Severe centrilobular emphysema noted. Nodula r pleural parenchymal scarring left lung base. MEDIASTINUM: Thoracic aorta is of normal caliber . The heart is not enlarged. No evidence for media stinal mass. No mediastinal lymph nodes greater than 1cm. HILAR STRUCTURES: No evidence for mass. No hilar lymph nodes greater than 1 cm. UPPER ABDOMEN: No significant abnormality is seen. IMPRESSION: 1. No evidence for Pulmonary embolism at this time.
[2016-06-08] MEDS: MULTIVITAMINS, THERA 1 EACH TAB PO SCH (12:48)
[2016-06-08] MEDS: CHOLECALCIFEROL 1,000 UNIT TAB PO SCH (12:48)
[2016-06-08 17:16] LABS: Glucose,Whole Blood 118 mg/dL (75-99)
--- NOTE | 2016-06-08 17:26 | P.PN ---
Subjective This is a very pleasant 75-year-old gentleman with a known history of chronic obstructive pulmonary disease and pulmonary fibrosis. He has a 40+ year pack per day smoking history. He also has a history of hyperlipidemia, hypertension, previous myocardial infarction status post coronary artery bypass grafting. He was admitted here in 06/04/2016 after being initially treated in [place] for COPD exacerbation without any significant improvement. He is seen again today 06/08/2016 in follow-up. He has been having ongoing worsening shortness of breath with dyspnea on minimal exertion. A CT angiogram ruled out pulmonary embolism. There was severe centrilobular emphysema noted. There is nodular peripheral parenchymal scarring in the left lung base. Objective - Vital Signs Vital signs: Vital Signs Temp 97.7 F 06/08/16 15:00 Pulse 98 06/08/16 15:40 Resp 18 06/08/16 15:00 BP 182/78 06/08/16 15:00 Pulse Ox 97 06/08/16 15:00 Intake & Output 06/07/16 06/08/16 06/08/16 18:59 06:59 18:59 Intake Total 446 800 Output Total 700 300 400 Balance -254 500 -400 Intake: IV 196 210 Cefepime 2 gm In Sodium 50 50 Chloride 0.9% 50 ml @ 100 mls/hr IVPB Q8HR MARIO Rx# :[id number] NS @ 20 ml/hr 146 160 Intake, IV Titration 250 Amount Vancomycin 1,750 mg In 250 Sodium Chloride 0.9% 250 ml @ 125 mls/hr IVPB Q12H MARIO Rx#:[id number] Oral 590 Output: Urine 700 300 400 Other: Voiding Method Toilet Toilet Toilet Urinal Urinal Urinal # Voids 4 1 # Bowel Movements 1 1 - Exam GENERAL EXAM: Alert, fairly comfortable in no apparent distress. HEAD: Normocephalic. EYES: Normal reaction of pupils, equal size. NOSE: Clear with pink turbinates. THROAT: No erythema or exudates. NECK: No masses, no JVD. CHEST: No chest wall deformity. LUNGS: Equal air entry with bilateral wheezing, diminished throughout. CVS: S1 and S2 normal with no audible murmurs, regular rhythm. ABDOMEN: No hepatosplenomegaly, normal bowel sounds, no guarding or rigidity. SPINE: No scoliosis or deformity SKIN: No rashes CENTRAL NERVOUS SYSTEM: No focal deficits, tone is normal in all 4 extremities. Extremities: There is no significant peripheral edema. No clubbing, no cyanosis. Peripheral pulses are intact. - Labs CBC & Chem 7: 06/08/16 07:39 06/08/16 07:39 Labs: Abnormal Lab Results - Last 24 Hours (Table) 06/07/16 06/08/16 06/08/16 Range/Units 20:14 07:39 07:39 Neutrophils # 8.8 H (1.3-7.7) k/uL Lymphocytes # 0.3 L (1.0-4.8) k/uL Sodium 136 L (137-145) mmol/L BUN 25 H (9-20) mg/dL Creatinine 0.57 L (0.66-1.25) mg/dL POC Glucose (mg/dL) 195 H (75-99) mg/dL Calcium 8.2 L (8.4-10.2) mg/dL 06/08/16 06/08/16 Range/Units 11:38 17:10 Neutrophils # (1.3-7.7) k/uL Lymphocytes # (1.0-4.8) k/uL Sodium (137-145) mmol/L BUN (9-20) mg/dL Creatinine (0.66-1.25) mg/dL POC Glucose (mg/dL) 107 H 118 H (75-99) mg/dL Calcium (8.4-10.2) mg/dL Assessment and Plan Plan: Impression: #1 Acute exacerbation of severe centrilobular emphysema/COPD. #2 Acute hypoxic respiratory failure secondary to above. #3 History of 40 pack year smoking history however quit approximately 18 years ago. #4 Coronary artery disease with previous coronary artery bypass grafting. #5 Hyperlipidemia. #6 Hypertension. Plan: The patient was seen and evaluated by Dr. Tobias. His CAT scan results were reviewed and discussed with both the patient and his son at the bedside. He would benefit from outpatient follow-up in our office where pulmonary function testing could be performed to evaluate the severity of his COPD and make recommendations for maintenance medications. In the interim, we'll continue with his bronchodilators along with Pulmicort and Perforomist inhalations, Singulair, IV Solu-Medrol, and antibiotics in the form of cefepime and vancomycin. Which may be D escalated. The patient has been slow to progress. We will increase his activity as tolerated. We'll continue to follow make further recommendations based on his clinical status.
[2016-06-08] MEDS: methylPREDNISolone SOD SUCCI 125 MG/2 ML VIAL IV SCH ×2 (18:19→23:11)
[2016-06-08 19:55] LABS: Glucose,Whole Blood 128 mg/dL (75-99)
[2016-06-08] MEDS: ALPRAZolam 0.25 MG TAB PO PRN (20:24)
[2016-06-08] MEDS: MONTELUKAST 10 MG TAB PO SCH (20:25)
[2016-06-08] MEDS: MELATONIN 3 MG TABLET PO SCH (20:27)
[2016-06-09] MEDS: hydrALAZINE HCL 20 MG/ML 1 ML VIAL IVP PRN (00:23)
[2016-06-09] MEDS: methylPREDNISolone SOD SUCCI 125 MG/2 ML VIAL IV SCH ×4 (05:22→23:35)
[2016-06-09] MEDS ORDERED: VANCOMYCIN TROUGH DUE 1 EACH MISC MISCELLANE ONE (07:00)
[2016-06-09] MEDS: FORMOTEROL FUMARATE 20 MCG/2 ML NEBU INHALATION SCH ×2 (07:14→21:13)
[2016-06-09] MEDS: IPRATROPIUM-ALBUTEROL 3 ML NEB INHALATION SCH ×4 (07:14→21:13)
[2016-06-09] MEDS: BUDESONIDE 1 MG/2 ML NEBU INHALATION SCH ×2 (07:14→21:13)
[2016-06-09 07:22] LABS: Glucose,Whole Blood 111 mg/dL (75-99)
[2016-06-09] MEDS: ZILEUTON PO SCH ×2 (07:31→20:16)
[2016-06-09] MEDS: POLYETHYLENE GLYCOL 3350 17 GM POWD.PACK PO SCH (07:32)
[2016-06-09] MEDS: VALSARTAN 160 MG TAB PO SCH (07:32)
[2016-06-09] MEDS: VALSARTAN 40 MG TAB PO SCH ×2 (07:32→20:13)
[2016-06-09] MEDS: CEFEPIME 2 GM in SODIUM CHLORIDE 0.9% 50 ML IVPB SCH ×3 (07:33→23:36)
[2016-06-09] MEDS: INSULIN LISPRO (humaLOG) 300 UNIT/3 ML VIAL SQ SCH ×4 (07:33→20:23)
[2016-06-09] MEDS: ASPIRIN 81 MG CHEW PO SCH (07:33)
[2016-06-09] MEDS: SERTRALINE 100 MG TAB PO SCH (07:34)
[2016-06-09] MEDS: BENZONATATE 100 MG CAP PO SCH ×3 (07:34→20:15)
[2016-06-09] MEDS: FAMOTIDINE 20 MG TAB PO SCH ×2 (07:34→20:12)
[2016-06-09] MEDS: HEPARIN SODIUM,PORCINE 5,000 UNIT/ML 1 ML VIAL SQ SCH ×2 (07:34→20:12)
[2016-06-09 08:05] LABS: Basophils % (A) 0 %; CHCM 32.4; Eosinophils % (A) 0 %; HDW 2.25; HGB 15.2 gm/dL (13.0-17.5); Luc # (Auto) 0.15; Luc % (Auto) 1; Lymphocytes # (A) 0.3 k/uL (1.0-4.8); Lymphocytes % (A) 3 %; MCH 28.5 pg (25.0-35.0); MCHC 31.7 g/dL (31.0-37.0); MCV 89.7 fL (80.0-100.0); Mean Platelet Volume 6.7; Monocytes # (A) 0.5 k/uL (0-1.0); Monocytes % (A) 5 %; Neutrophils # (A) 9.2 k/uL (1.3-7.7); Neutrophils % (A) 90 %; RBC 5.35 m/uL (4.30-5.90); RDW 13.9 % (11.5-15.5); WBC 10.2 k/uL (3.8-10.6); WBC (Perox) 10.36
[2016-06-09 08:27] LABS: Anion Gap 5 mmol/L; Blood Urea Nitrogen 24 mg/dL (9-20); Calcium 8.4 mg/dL (8.4-10.2); Carbon Dioxide 32 mmol/L (22-30); Chloride 100 mmol/L (98-107); Glucose 123 mg/dL (74-99); Non-African American GFR(MDRD) >60 (>60 ml/min/1.73 sqM); Potassium 4.8 mmol/L (3.5-5.1); Sodium 137 mmol/L (137-145)
[2016-06-09] MEDS: VANCOMYCIN 1,750 MG in SODIUM CHLORIDE 0.9% 250 ML IVPB SCH ×2 (09:09→20:05)
--- NOTE | 2016-06-09 11:07 | PN ---
DATE OF SERVICE: 06/08/2016 This 75-year-old gentleman admitted with COPD acute exacerbation, has taken a turn for the worse. Last night the patient was more short of breath and Dr. Tobias is following the patient closely and recommended a CT scan of the chest wall to rule out pulmonary embolism. No fever. Continued cough is reported. On exam, alert and oriented x3. Pulse is 96, blood pressure 182/76, respirations 18, temperature 97.6, pulse ox 97% on 3-liters. HEENT: Conjunctivae normal. NECK: No jugular venous distention. CARDIOVASCULAR: S1 and S2, muffled. RESPIRATORY: Breath sounds diminished at the bases. Bilateral scattered rhonchi and crackles. Expiratory wheezing also present. ABDOMEN: Soft, nontender. LEGS: No edema, no swelling. NERVOUS SYSTEM: No focal deficits. LABS: CBC within normal limits. Sodium 136. ASSESSMENT: 1. Chronic obstructive pulmonary disease, acute exacerbation, with acute purulent tracheobronchitis with bronchopneumonia with bilateral possible interstitial fibrosis with failure of outpatient treatment. 2. Forestier disease of the spine. 3. Increased WBC. 4. Remote history of nicotine dependence. 5. Increased random blood sugar, possibly secondary to steroids. 6. History of asthma. 7. Hypertension. 8. Hyperlipidemia. 9. History of myocardial infarction. 10. History of pneumonia. 11. History of chronic constipation. 12. History of diverticulosis. 13. Chronic hypoxic respiratory failure on 2 liters home oxygen nasal cannula. 14. History of coronary artery disease, coronary artery bypass grafting. 15. History of cholecystectomy. 16. Remote history of nicotine dependence. 17. FULL CODE. RECOMMENDATIONS AND DISCUSSION: In this 75-year-old gentleman who presented with multiple complex medical issues, will continue the current medications, continue symptomatic treatment. Otherwise continue the steroids. Closely follow. The steroid dose has been increased to Dr. Tobias. Continue the broad-spectrum IV antibiotics. Closely monitor. The CTA was noted. Guarded prognosis. Further recommendations to follow.
[2016-06-09 11:27] LABS: Glucose,Whole Blood 150 mg/dL (75-99)
[2016-06-09] MEDS: CHOLECALCIFEROL 1,000 UNIT TAB PO SCH (12:40)
[2016-06-09] MEDS: MULTIVITAMINS, THERA 1 EACH TAB PO SCH (12:40)
[2016-06-09] MEDS: amLODIPine 5 MG TAB PO SCH ×2 (12:45→20:12)
--- NOTE | 2016-06-09 16:14 | P.PN ---
Subjective This is a very pleasant 75-year-old gentleman with a known history of chronic obstructive pulmonary disease and pulmonary fibrosis. He has a 40+ year pack per day smoking history. He also has a history of hyperlipidemia, hypertension, previous myocardial infarction status post coronary artery bypass grafting. He was admitted here in 06/04/2016 after being initially treated in [place] for COPD exacerbation without any significant improvement. He has been having ongoing worsening shortness of breath with dyspnea on minimal exertion. A CT angiogram ruled out pulmonary embolism. There was severe centrilobular emphysema noted. There is nodular peripheral parenchymal scarring in the left lung base. The patient is seen again today 06/09/2016 in follow-up on the regular medical floor. He is awake and alert in no acute distress. He states his breathing is slightly better today as compared to yesterday. Slow to progress. He is maintaining good O2 saturations in the mid 90s on 2 L/m per nasal cannula. Afebrile. No leukocytosis. Objective - Vital Signs Vital signs: Vital Signs Temp 98.0 F 06/09/16 15:30 Pulse 86 06/09/16 15:30 Resp 18 06/09/16 15:30 BP 159/74 06/09/16 15:30 Pulse Ox 96 06/09/16 15:30 Intake & Output 06/08/16 06/09/16 06/09/16 18:59 06:59 18:59 Intake Total 750 Output Total 400 300 375 Balance -400 450 -375 Intake: IV 160 NS @ 20 ml/hr 160 Oral 590 Output: Urine 400 300 375 Other: Voiding Method Toilet Toilet Toilet Urinal Urinal Urinal # Voids 1 2 # Bowel Movements 1 - Exam GENERAL EXAM: Alert, fairly comfortable in no apparent distress. HEAD: Normocephalic. EYES: Normal reaction of pupils, equal size. NOSE: Clear with pink turbinates. THROAT: No erythema or exudates. NECK: No masses, no JVD. CHEST: No chest wall deformity. LUNGS: Equal air entry with bilateral wheezing, diminished throughout. CVS: S1 and S2 normal with no audible murmurs, regular rhythm. ABDOMEN: No hepatosplenomegaly, normal bowel sounds, no guarding or rigidity. SPINE: No scoliosis or deformity SKIN: No rashes CENTRAL NERVOUS SYSTEM: No focal deficits, tone is normal in all 4 extremities. Extremities: There is no significant peripheral edema. No clubbing, no cyanosis. Peripheral pulses are intact. - Labs CBC & Chem 7: 06/09/16 07:43 06/09/16 07:43 Labs: Abnormal Lab Results - Last 24 Hours (Table) 06/08/16 06/08/16 06/09/16 Range/Units 17:10 19:54 07:13 Neutrophils # (1.3-7.7) k/uL Lymphocytes # (1.0-4.8) k/uL Carbon Dioxide (22-30) mmol/L BUN (9-20) mg/dL Creatinine (0.66-1.25) mg/dL Glucose (74-99) mg/dL POC Glucose (mg/dL) 118 H 128 H 111 H (75-99) mg/dL 06/09/16 06/09/16 06/09/16 Range/Units 07:43 07:43 11:25 Neutrophils # 9.2 H (1.3-7.7) k/uL Lymphocytes # 0.3 L (1.0-4.8) k/uL Carbon Dioxide 32 H (22-30) mmol/L BUN 24 H (9-20) mg/dL Creatinine 0.63 L (0.66-1.25) mg/dL Glucose 123 H (74-99) mg/dL POC Glucose (mg/dL) 150 H (75-99) mg/dL Assessment and Plan Plan: Impression: #1 Acute exacerbation of severe centrilobular emphysema/COPD. #2 Acute hypoxic respiratory failure secondary to above. #3 History of 40 pack year smoking history however quit approximately 18 years ago. #4 Coronary artery disease with previous coronary artery bypass grafting. #5 Hyperlipidemia. #6 Hypertension. Plan: The patient was seen and evaluated by Dr. Tobias. He would benefit from outpatient follow-up in our office where pulmonary function testing could be performed to evaluate the severity of his COPD and make recommendations for maintenance medications. In the interim, we'll continue with his bronchodilators along with Pulmicort and Perforomist inhalations, Singulair, IV Solu-Medrol, and antibiotics. The patient has been slow to progress. We will increase his activity as tolerated. We'll continue to follow and make further recommendations based on his clinical status.
[2016-06-09 17:05] LABS: Glucose,Whole Blood 122 mg/dL (75-99)
--- NOTE | 2016-06-09 19:40 | PN ---
DATE OF SERVICE: 06/09/2016 This 75 -year-old gentleman admitted to the hospital with chronic obstructive pulmonary disease acute exacerbation as well as bronchopneumonia has taken a turn for the worse after reducing the steroids. The IV steroid dose has been increased and the patient feeling much better today. A chest CT was done, recommended by pulmonology which showed no evidence of pulmonary embolism. No chest pain. No palpitations. No fever. On exam, alert and oriented x3. Pulse is 88, blood pressure is 180/89, respirations 18, temperature 97.9, pulse ox 97% on 3 L. HEENT: Conjunctivae normal. NECK: No jugular venous distention. CARDIOVASCULAR: S1, S2 muffled. RESPIRATORY: Breath sounds diminished at the bases. Bilateral scattered rhonchi and expiratory wheezing and crackles. ABDOMEN: Soft. Nervous system: No focal deficits. LABS: CBC within normal limits. Glucose 123, 150. ASSESSMENT: 1. Chronic obstructive pulmonary disease, acute exacerbation with acute purulent tracheobronchitis and bronchopneumonia with bilateral possible interstitial fibrosis with failure of outpatient treatment. 2. Forestiers disease of the spine. Very slow improvement. 3. Increased WBC. 4. Remote history nicotine dependence. 5. Increased random blood sugar, possibly secondary to steroids. 6. History of asthma. 7. Hypertension. 8. Hyperlipidemia. 9. History of myocardial infarction. 10. History of pneumonia. 11. History of chronic constipation. 12. History of diverticulosis. 13. History of chronic hypoxic respiratory failure 2 L home O2. 14. History of coronary artery disease, coronary artery bypass grafting. 15. History of cholecystectomy. 16. Remote history nicotine dependence. 17. FULL CODE. RECOMMENDATIONS AND DISCUSSION: In this 75-year-old gentleman who presented with multiple complex medical issues, we will monitor the patient closely. Continue the current medications continue symptomatic treatment. Otherwise, at this time I recommend continue with bronchodilators, IV steroids. Closely follow with Dr. Tobias. Guarded prognosis. Influenza was negative. Guarded prognosis because of multiple complex medical issues. Further recommendations to follow.
[2016-06-09 20:07] LABS: Glucose,Whole Blood 213 mg/dL (75-99)
[2016-06-09] MEDS: MONTELUKAST 10 MG TAB PO SCH (20:13)
[2016-06-09] MEDS: MELATONIN 3 MG TABLET PO SCH (20:13)
[2016-06-09] MEDS: VALSARTAN 80 MG TAB PO SCH (20:15)
[2016-06-09] MEDS: ALPRAZolam 0.25 MG TAB PO PRN (20:23)
[2016-06-10] MEDS: methylPREDNISolone SOD SUCCI 125 MG/2 ML VIAL IV SCH ×3 (06:08→19:13)
[2016-06-10] MEDS: IPRATROPIUM-ALBUTEROL 3 ML NEB INHALATION SCH ×4 (07:22→18:57)
[2016-06-10] MEDS: FORMOTEROL FUMARATE 20 MCG/2 ML NEBU INHALATION SCH ×2 (07:23→18:57)
[2016-06-10] MEDS: BUDESONIDE 1 MG/2 ML NEBU INHALATION SCH ×2 (07:23→18:57)
[2016-06-10 07:28] LABS: Glucose,Whole Blood 127 mg/dL (75-99)
[2016-06-10] MEDS: ZILEUTON PO SCH ×2 (07:35→20:35)
[2016-06-10] MEDS: POLYETHYLENE GLYCOL 3350 17 GM POWD.PACK PO SCH (07:39)
[2016-06-10] MEDS: FAMOTIDINE 20 MG TAB PO SCH ×2 (07:47→20:33)
[2016-06-10] MEDS: VALSARTAN 80 MG TAB PO SCH ×2 (07:47→20:33)
[2016-06-10] MEDS: BENZONATATE 100 MG CAP PO SCH ×3 (07:47→20:33)
[2016-06-10] MEDS: amLODIPine 5 MG TAB PO SCH ×2 (07:47→20:33)
[2016-06-10] MEDS: INSULIN LISPRO (humaLOG) 300 UNIT/3 ML VIAL SQ SCH ×4 (07:48→20:36)
[2016-06-10] MEDS: ASPIRIN 81 MG CHEW PO SCH (07:48)
[2016-06-10] MEDS: VALSARTAN 40 MG TAB PO SCH ×2 (07:48→20:33)
[2016-06-10] MEDS: SERTRALINE 100 MG TAB PO SCH (07:48)
[2016-06-10] MEDS: HEPARIN SODIUM,PORCINE 5,000 UNIT/ML 1 ML VIAL SQ SCH ×2 (07:53→20:33)
[2016-06-10 07:58] LABS: Basophils % (A) 0 %; CH 29.4; CHCM 32.1; Eosinophils % (A) 0 %; HCT 47.9 % (39.0-53.0); HDW 2.27; HGB 14.9 gm/dL (13.0-17.5); Luc # (Auto) 0.07; Luc % (Auto) 1; Lymphocytes # (A) 0.2 k/uL (1.0-4.8); Lymphocytes % (A) 2 %; MCH 28.7 pg (25.0-35.0); MCHC 31.2 g/dL (31.0-37.0); MCV 92.1 fL (80.0-100.0); Mean Platelet Volume 7.8; Monocytes # (A) 0.5 k/uL (0-1.0); Monocytes % (A) 4 %; Neutrophils # (A) 10.8 k/uL (1.3-7.7); Neutrophils % (A) 93 %; RBC 5.21 m/uL (4.30-5.90); WBC 11.6 k/uL (3.8-10.6); WBC (Perox) 12.23
[2016-06-10 08:21] LABS: Anion Gap 9 mmol/L; Blood Urea Nitrogen 26 mg/dL (9-20); Calcium 8.3 mg/dL (8.4-10.2); Carbon Dioxide 27 mmol/L (22-30); Chloride 101 mmol/L (98-107); Glucose 131 mg/dL (74-99); Non-African American GFR(MDRD) >60 (>60 ml/min/1.73 sqM); Potassium 4.7 mmol/L (3.5-5.1); Sodium 137 mmol/L (137-145)
[2016-06-10] MEDS: CEFEPIME 2 GM in SODIUM CHLORIDE 0.9% 50 ML IVPB SCH ×2 (08:21→16:39)
[2016-06-10] MEDS: VANCOMYCIN 1,750 MG in SODIUM CHLORIDE 0.9% 250 ML IVPB SCH ×2 (08:23→20:33)
[2016-06-10 11:58] LABS: Glucose,Whole Blood 180 mg/dL (75-99)
[2016-06-10] MEDS: MULTIVITAMINS, THERA 1 EACH TAB PO SCH (12:37)
[2016-06-10] MEDS: CHOLECALCIFEROL 1,000 UNIT TAB PO SCH (12:37)
--- NOTE | 2016-06-10 16:56 | P.PN ---
Subjective This is a very pleasant 75-year-old gentleman with a known history of chronic obstructive pulmonary disease and pulmonary fibrosis. He has a 40+ year pack per day smoking history. He also has a history of hyperlipidemia, hypertension, previous myocardial infarction status post coronary artery bypass grafting. He was admitted here in 06/04/2016 after being initially treated in [place] for COPD exacerbation without any significant improvement. He has been having ongoing worsening shortness of breath with dyspnea on minimal exertion. A CT angiogram ruled out pulmonary embolism. There was severe centrilobular emphysema noted. There is nodular peripheral parenchymal scarring in the left lung base. The patient is seen again today 06/09/2016 in follow-up on the regular medical floor. He is awake and alert in no acute distress. He states his breathing is slightly better today as compared to yesterday. Slow to progress. He is maintaining good O2 saturations in the mid 90s on 2 L/m per nasal cannula. Afebrile. No leukocytosis. The patient is seen again today in follow-up 06/10/2016. He is definitely feeling better today as compared to yesterday. He is less short of breath. He has a loose nonproductive cough. He is getting closer to his baseline. He's been up ambulating without significant distress. He is maintaining good O2 saturations in the mid 90s on room air. He remains afebrile. Objective - Vital Signs Vital signs: Vital Signs Temp 97.6 F 06/10/16 15:00 Pulse 78 06/10/16 15:44 Resp 18 06/10/16 15:00 BP 176/83 06/10/16 15:00 Pulse Ox 96 06/10/16 15:00 Intake & Output 06/09/16 06/10/16 06/10/16 18:59 06:59 18:59 Intake Total 210 795 Output Total 750 Balance -540 795 Intake: IV 210 40 Cefepime 2 gm In Sodium 50 Chloride 0.9% 50 ml @ 100 mls/hr IVPB Q8HR [facility] Rx# :[id number] NS @ 20 ml/hr 160 40 Intake, IV Titration 125 Amount Vancomycin 1,750 mg In 125 Sodium Chloride 0.9% 250 ml @ 125 mls/hr IVPB Q12H MARIO Rx#:[id number] Oral 630 Output: Urine 750 Other: Voiding Method Toilet Toilet Urinal Urinal # Voids 3 1 1 - Exam GENERAL EXAM: Alert, fairly comfortable in no apparent distress. HEAD: Normocephalic. EYES: Normal reaction of pupils, equal size. NOSE: Clear with pink turbinates. THROAT: No erythema or exudates. NECK: No masses, no JVD. CHEST: No chest wall deformity. LUNGS: Equal air entry with bilateral wheezing, diminished throughout. CVS: S1 and S2 normal with no audible murmurs, regular rhythm. ABDOMEN: No hepatosplenomegaly, normal bowel sounds, no guarding or rigidity. SPINE: No scoliosis or deformity SKIN: No rashes CENTRAL NERVOUS SYSTEM: No focal deficits, tone is normal in all 4 extremities. Extremities: There is no significant peripheral edema. No clubbing, no cyanosis. Peripheral pulses are intact. - Labs CBC & Chem 7: 06/10/16 07:27 06/10/16 07:27 Labs: Abnormal Lab Results - Last 24 Hours (Table) 06/09/16 06/09/16 06/10/16 Range/Units 17:04 20:05 07:06 WBC (3.8-10.6) k/uL Neutrophils # (1.3-7.7) k/uL Lymphocytes # (1.0-4.8) k/uL BUN (9-20) mg/dL Creatinine (0.66-1.25) mg/dL Glucose (74-99) mg/dL POC Glucose (mg/dL) 122 H 213 H 127 H (75-99) mg/dL Calcium (8.4-10.2) mg/dL 06/10/16 06/10/16 06/10/16 Range/Units 07:27 07:27 11:52 WBC 11.6 H (3.8-10.6) k/uL Neutrophils # 10.8 H (1.3-7.7) k/uL Lymphocytes # 0.2 L (1.0-4.8) k/uL BUN 26 H (9-20) mg/dL Creatinine 0.58 L (0.66-1.25) mg/dL Glucose 131 H (74-99) mg/dL POC Glucose (mg/dL) 180 H (75-99) mg/dL Calcium 8.3 L (8.4-10.2) mg/dL Assessment and Plan Plan: Impression: #1 Acute exacerbation of severe centrilobular emphysema/COPD. #2 Acute hypoxic respiratory failure secondary to above. #3 History of 40 pack year smoking history however quit approximately 18 years ago. #4 Coronary artery disease with previous coronary artery bypass grafting. #5 Hyperlipidemia. #6 Hypertension. Plan: The patient was seen and evaluated by Dr. Tobias. We'll continue with his bronchodilators along with Pulmicort and Perforomist inhalations, Singulair, IV Solu-Medrol, and antibiotics. He would benefit from outpatient follow-up in our office where pulmonary function testing could be performed to evaluate the severity of his COPD and make recommendations for maintenance medications. We will increase his activity as tolerated. We'll continue to follow and make further recommendations based on his clinical status.
[2016-06-10 17:11] LABS: Glucose,Whole Blood 126 mg/dL (75-99)
--- NOTE | 2016-06-10 18:05 | PN ---
This 75-year-old gentleman who was admitted with COPD acute exacerbation has taken a turn for the worse, but today patient is feeling slightly better. A chest CT did not show any evidence of pulmonary embolism. No chest pain. No palpitations. No fever. Dr. Tobias is following the patient closely. On exam, alert and oriented x3. Pulse is 80, blood pressure 174/85, respiration 18, temperature 97.7, pulse ox 98% on 3 L. HEENT: Conjunctivae normal. NECK: No jugular venous distention. CARDIOVASCULAR: S1, S2 muffled. RESPIRATORY: Breath sounds diminished at the bases. A few scattered rhonchi and crackles. ABDOMEN: Soft, nontender. No mass palpable. LEGS: No edema. No swelling. CENTRAL NERVOUS SYSTEM: No focal deficits. LABS: WBC 11.7, hemoglobin 14.9, Accu-Cheks noted. ASSESSMENT: 1. Chronic obstructive pulmonary disease, acute exacerbation, with acute purulent tracheobronchitis with bronchopneumonia with bilateral possible interstitial fibrosis with failure of outpatient treatment. 2. Forestiers disease of the spine. 3. Increased WBC. 4. Remote history of nicotine dependence. 5. Increased random sugar possibly secondary to steroids. 6. History of asthma. 7. Hypertension, essential. 8. Dementia. 9. Hyperlipidemia. 10. History of myocardial infarction. 11. History of pneumonia. 12. History of chronic constipation. 13. History of diverticulosis. 14. Chronic hypoxic respiratory failure on 2 liters nasal cannula at home. 15. Coronary artery disease, coronary artery bypass grafting. 16. History of cholecystectomy. 17. Remote history of nicotine dependence. 18. FULL CODE. Recommend to continue with current medications, continue with monitoring, symptomatic treatment. Otherwise at this time, I recommend continue with high-dose IV steroids per pulmonary recommendations. Continue the rest of the medications. Continue antibiotics. DVT prophylaxis. Guarded prognosis because of multiple complex medical issues. Further recommendations to follow.
[2016-06-10 20:25] LABS: Glucose,Whole Blood 178 mg/dL (75-99)
[2016-06-10] MEDS: MONTELUKAST 10 MG TAB PO SCH (20:33)
[2016-06-10] MEDS: ALPRAZolam 0.25 MG TAB PO PRN (20:33)
[2016-06-10] MEDS: hydrALAZINE HCL 20 MG/ML 1 ML VIAL IVP PRN (22:12)
[2016-06-10] MEDS: MELATONIN 3 MG TABLET PO SCH (22:14)
[2016-06-11] MEDS: CEFEPIME 2 GM in SODIUM CHLORIDE 0.9% 50 ML IVPB SCH ×3 (00:33→15:42)
[2016-06-11] MEDS: methylPREDNISolone SOD SUCCI 125 MG/2 ML VIAL IV SCH ×5 (00:33→23:08)
[2016-06-11] MEDS: FORMOTEROL FUMARATE 20 MCG/2 ML NEBU INHALATION SCH ×2 (07:05→19:38)
[2016-06-11] MEDS: IPRATROPIUM-ALBUTEROL 3 ML NEB INHALATION SCH ×4 (07:05→19:38)
[2016-06-11] MEDS: BUDESONIDE 1 MG/2 ML NEBU INHALATION SCH ×2 (07:05→19:38)
[2016-06-11 07:51] LABS: Glucose,Whole Blood 135 mg/dL (75-99)
[2016-06-11] MEDS: ZILEUTON PO SCH ×2 (08:08→21:51)
[2016-06-11] MEDS: amLODIPine 5 MG TAB PO SCH ×2 (08:09→17:21)
[2016-06-11] MEDS: HEPARIN SODIUM,PORCINE 5,000 UNIT/ML 1 ML VIAL SQ SCH ×2 (08:09→21:51)
[2016-06-11] MEDS: VALSARTAN 40 MG TAB PO SCH ×2 (08:09→18:02)
[2016-06-11] MEDS: SERTRALINE 100 MG TAB PO SCH (08:09)
[2016-06-11] MEDS: ASPIRIN 81 MG CHEW PO SCH (08:09)
[2016-06-11] MEDS: BENZONATATE 100 MG CAP PO SCH ×3 (08:09→21:52)
[2016-06-11] MEDS: VALSARTAN 80 MG TAB PO SCH ×2 (08:10→18:02)
[2016-06-11] MEDS: POLYETHYLENE GLYCOL 3350 17 GM POWD.PACK PO SCH (08:10)
[2016-06-11] MEDS: FAMOTIDINE 20 MG TAB PO SCH ×2 (08:10→21:51)
[2016-06-11] MEDS: INSULIN LISPRO (humaLOG) 300 UNIT/3 ML VIAL SQ SCH ×4 (08:10→22:11)
[2016-06-11] MEDS: VANCOMYCIN 1,750 MG in SODIUM CHLORIDE 0.9% 250 ML IVPB SCH ×2 (10:07→21:50)
[2016-06-11 11:38] LABS: Glucose,Whole Blood 197 mg/dL (75-99)
[2016-06-11 11:47] VITALS: BMI 23.7
[2016-06-11] MEDS: MULTIVITAMINS, THERA 1 EACH TAB PO SCH (11:49)
[2016-06-11] MEDS: CHOLECALCIFEROL 1,000 UNIT TAB PO SCH (11:49)
--- NOTE | 2016-06-11 12:36 | PN ---
Patient is a very pleasant 75-year-old gentleman, he is admitted for COPD exacerbation and patient's breath sounds are still rhonchorous and improvement is quite slow and he gets quite worse whenever they try to cut down on the Solu-Medrol. Patient is also on cefepime. Patient still has rhonchus breath sounds and patient is feeling much better than a couple days ago and patient may benefit from bronchoscopy; although, considering the risk of going for bronch with his respiratory status, we are awaiting his improvement with medical treatment and the decision for bronchoscopy will be left to Pulmonary. REVIEW OF SYSTEMS: CARDIOVASCULAR: No chest pain, no orthopnea, no PND, no palpitations. PULMONARY: As described in HPI. GASTROINTESTINAL: No diarrhea, nausea or vomiting. No abdominal pain. Normoactive bowel sounds. NEUROLOGIC: No headaches, no weakness, no numbness. Medications were reviewed. PHYSICAL EXAMINATION: VITAL SIGNS: Temperature 97.6, pulse of 91, respiratory rate of 20, blood pressure is 177/82, saturating at 94% on 2 L of O2 by nasal cannula. GENERAL: The patient is alert and oriented x3, not in any acute distress. Well developed, well nourished. HEENT: Pupils are round and equally reacting to light. EOMI. No scleral icterus. No conjunctival pallor. Normocephalic, atraumatic. No pharyngeal erythema. No thyromegaly. CARDIOVASCULAR: S1 and S2 present. No murmurs, rubs, or gallops. ABDOMEN: Soft, nontender, nondistended, normoactive bowel sounds. No palpable organomegaly. MUSCULOSKELETAL: No joint swelling or deformity. EXTREMITIES: No cyanosis, clubbing, or pedal edema. NEUROLOGICAL: Gross neurological examination did not reveal any focal deficits. SKIN: No rashes. RESPIRATORY: Patient has rhonchus breath sounds bilaterally. No wheezing was appreciated. No crackles are appreciated and patient is in mild respiratory distress without any exertion because of his COPD. Laboratory data was reviewed. ASSESSMENT AND PLAN: 1. Acute exacerbation of chronic obstructive pulmonary disease. Patient has ( ) lobar emphysema. 2. Acute hypercapnic respiratory failure secondary to chronic obstructive pulmonary disease. 3. Coronary artery disease. 4. Hyperlipidemia. 5. Hypertension. 6. Tracheobronchitis. Patient is on cefepime. I did review the microbiology. I do not see any sputum cultures reports at this point of time. 7. Elevated blood sugars due to systemic steroids. 8. Chronic hypercapnic respiratory failure secondary to chronic obstructive pulmonary disease. PLAN: Continue with systemic steroids, continue with antibiotics, bronchoscopy decision as per Pulmonary.
[2016-06-11 17:03] LABS: Glucose,Whole Blood 130 mg/dL (75-99)
[2016-06-11] MEDS ORDERED: guaiFENesin-DM 100-10MG/5ML 10 ML CUP PO PRN (17:03)
--- NOTE | 2016-06-11 17:03 | P.PN ---
Subjective This is a very pleasant 75-year-old gentleman with a known history of chronic obstructive pulmonary disease and pulmonary fibrosis. He has a 40+ year pack per day smoking history. He also has a history of hyperlipidemia, hypertension, previous myocardial infarction status post coronary artery bypass grafting. He was admitted here in 06/04/2016 after being initially treated in [place] for COPD exacerbation without any significant improvement. He has been having ongoing worsening shortness of breath with dyspnea on minimal exertion. A CT angiogram ruled out pulmonary embolism. There was severe centrilobular emphysema noted. There is nodular peripheral parenchymal scarring in the left lung base. The patient is seen again today 06/09/2016 in follow-up on the regular medical floor. He is awake and alert in no acute distress. He states his breathing is slightly better today as compared to yesterday. Slow to progress. He is maintaining good O2 saturations in the mid 90s on 2 L/m per nasal cannula. Afebrile. No leukocytosis. The patient is seen again today in follow-up 06/10/2016. He is definitely feeling better today as compared to yesterday. He is less short of breath. He has a loose nonproductive cough. He is getting closer to his baseline. He's been up ambulating without significant distress. He is maintaining good O2 saturations in the mid 90s on room air. He remains afebrile. On 06/11/2016 the patient is being seen in follow-up. COPD gradually improving. No major respiratory difficulties. His cough remains congested. He was inquiring about the bronchoscopy, however, I do not think this will be needed and I think the patient will ultimately recover with medical treatment. He remains on bronchodilators and systemic steroids. Objective - Vital Signs Vital signs: Vital Signs Temp 97.6 F 06/11/16 07:00 Pulse 88 06/11/16 15:10 Resp 20 06/11/16 07:00 BP 177/82 06/11/16 07:00 Pulse Ox 95 06/11/16 07:07 Intake & Output 06/10/16 06/11/16 06/11/16 18:59 06:59 18:59 Intake Total 500 460 Balance 500 460 Weight 81.647 kg Intake: IV 300 460 Cefepime 2 gm In Sodium 50 50 Chloride 0.9% 50 ml @ 100 mls/hr IVPB Q8HR [facility] Rx# :[id number] NS @ 20 ml/hr 160 Vancomycin 1,750 mg In 250 250 Sodium Chloride 0.9% 250 ml @ 125 mls/hr IVPB Q12H [facility] Rx#:[id number] Oral 200 Other: Voiding Method Toilet Toilet Urinal Urinal # Voids 1 1 3 # Bowel Movements 1 - Exam Head exam was generally normal. There was no scleral icterus or corneal arcus. Mucous membranes were moist.Neck was supple and without jugular venous distension, thyromegaly, or carotid bruits. Carotids were easily palpable bilaterally. There was no adenopathy. Lung sounds are diminished bilaterally along with some few scattered expiratory wheeze.Cardiac exam revealed the PMI to be normally situated and sized. The rhythm was regular and no extrasystoles were noted during several minutes of auscultation. The first and second heart sounds were normal and physiologic splitting of the second heart sound was noted. There were no murmurs, rubs, clicks, or gallops.Abdominal exam revealed normal bowel sounds. The abdomen was soft, non-tender, and without masses, organomegaly, or appreciable enlargement of the abdominal aorta.Examination of the extremities revealed easily palpable radial, femoral and pedal pulses. There was no cyanosis, clubbing or edema. - Labs CBC & Chem 7: 06/10/16 07:27 06/10/16 07:27 Labs: Abnormal Lab Results - Last 24 Hours (Table) 06/10/16 06/10/16 06/11/16 Range/Units 17:07 20:22 07:48 POC Glucose (mg/dL) 126 H 178 H 135 H (75-99) mg/dL 06/11/16 Range/Units 11:37 POC Glucose (mg/dL) 197 H (75-99) mg/dL Assessment and Plan Plan: Impression: #1 Acute exacerbation of severe centrilobular emphysema/COPD. #2 Acute hypoxic respiratory failure secondary to above. #3 History of 40 pack year smoking history however quit approximately 18 years ago. #4 Coronary artery disease with previous coronary artery bypass grafting. #5 Hyperlipidemia. #6 Hypertension. Plan The patient is improving slowly. Continue the IV Solu Medrol for another 24 hours and start tapering as of tomorrow. Continue the bronchodilators. Start the patient Robitussin-DM for cough and chest congestion. No need for bronchoscopy at this point. Anticipate further recovery with medical treatment.
[2016-06-11 21:00] LABS: Glucose,Whole Blood 212 mg/dL (75-99)
[2016-06-11] MEDS ORDERED: valACYclovir 500 MG TAB PO SCH (21:15)
[2016-06-11] MEDS: ALPRAZolam 0.25 MG TAB PO PRN (21:50)
[2016-06-11] MEDS: MONTELUKAST 10 MG TAB PO SCH (21:51)
[2016-06-11] MEDS: MELATONIN 3 MG TABLET PO SCH (21:51)
[2016-06-11] MEDS: SULFAMETHOX-TMP 800-160MG 1 EACH TAB PO SCH (21:52)
[2016-06-11 22:17] LABS: Glucose,Whole Blood 211 mg/dL (75-99)
--- NOTE | 2016-06-11 22:42 | P.CONS ---
History of Present Illness - Reason for Consult Consult date: 06/11/16 - Chief Complaint Rash - History of Present Illness 75-year-old male who has a known history of COPD that is oxygen dependent as well as underlying hypertension and hypertensive cardiovascular disease. Presented to [facility] because of significant shortness of breath. Because he was so profoundly short of breath and was transferred to our facility for care under pulmonology. His respiratory medications have been altered in his been treated with steroid therapy. He relates that he still feels somewhat short of breath but better than admission. However is now developed evidence significant rash onto his left buttocks. It is somewhat painful in nature. It started to drain and the last several hours. Because of the painful draining rash the infectious diseases consultation was requested. This pleasant gentleman is known to have the advanced COPD and pulmonology is concerned that he has pulmonary fibrosis. The patient relates to not having high-grade fever, chills or rigors at this time. He does have cough barking in nature at times without much sputum production. No hemoptysis. His weight has been stable. Review of Systems HEENT:Denies headache or acute visual change. Denies sinus or mouth discomforts. Denies neck stiffness or pain. Denies significant oral cavity pain. Denies difficulty on swallowing. Lungs: As per the HPI has shortness of breath, has cough, no significant sputum production, no hemoptysis.. Cardiovascular: Denies significant chest pain, chest wall pain, orthopnea, dyspnea on exertion, syncope Gastrointestinal:Denies nausea, vomiting, diarrhea, constipation, hematemesis, melena, hematochezia. No no significant change of bowel habit noticed. Musculoskeletal: denies significant myalgias or arthralgias. No new joint swelling. Denies new back pain. Skin: Denies new rash or lesions. No new ulcers or wounds are related.. Neuro: Denies headache or visual change. Denies any new onset weakness or difficulty with ambulation. Denies falls or seizures. Psychiatric:Denies anxiety or depression. Endocrine: Positive for fatigue but no significant weight loss as of late Past Medical History Past Medical History: Asthma, Hyperlipidemia, Hypertension, Myocardial Infarction ([place]), Pneumonia Additional Past Medical History / Comment(s): chronic constipation, hemorrhoids , diverticulosis.home 02 2 liters n/c at hs and prn, partial sbo(no sx ) Last Myocardial Infarction Date:: 2004 History of Any Multi-Drug Resistant Organisms: None Reported Past Surgical History: Cholecystectomy, Coronary Bypass/CABG, Heart Catheterization Additional Past Surgical History / Comment(s): 12/20/13 colonoscopy, 2005 Cabg-4 vessel.rt cataract. Past Anesthesia/Blood Transfusion Reactions: No Reported Reaction Past Psychological History: No Psychological Hx Reported Additional Psychological History / Comment(s): Pt resides alone. He uses no assistive device. He drives. Retired. No experience. No international travel. No current tobacco use but smoked at least 40 pack years. No significant alcohol use Smoking Status: Former smoker Past Alcohol Use History: Rare Additional Past Alcohol Use History / Comment(s): Pt states he started smoking at age 16 yrs and quit about 18 yrs ago, ([id number]) carton per week. Past Drug Use History: None Reported - Past Family History Mother Family Medical History: Hypertension Additional Family Medical History / Comment(s): Mother at the age of 88yrs. Father Family Medical History: Cancer Additional Family Medical History / Comment(s): Father of prostate cancer at the age of 65 yrs. Medications and Allergies Home Medications and Allergies Comment(s): Current Medications Acetaminophen/Hydrocodone Bitart ([place] 5-325) 1 each PO Q6HR PRN PRN Reason: Moderate Pain Last Admin: 06/07/16 18:49 Dose: 1 each Albuterol/Ipratropium (Duoneb 0.5 Mg-3 Mg/3 Ml Soln) 3 ml INHALATION RT-QID [facility] Last Admin: 06/11/16 19:38 Dose: 3 ml Albuterol/Ipratropium (Duoneb 0.5 Mg-3 Mg/3 Ml Soln) 3 ml INHALATION RT-Q2H PRN PRN Reason: Shortness Of Breath Or Wheezing Alprazolam (Xanax) 0.25 mg PO BID PRN PRN Reason: Anxiety Last Admin: 06/11/16 21:50 Dose: 0.25 mg Amlodipine Besylate (Norvasc) 5 mg PO BID [facility] Last Admin: 06/11/16 17:21 Dose: 5 mg Aspirin (Aspirin) 81 mg PO DAILY [facility] Last Admin: 06/11/16 08:09 Dose: 81 mg Benzonatate (Tessalon Perles) 200 mg PO TID [facility] Last Admin: 06/11/16 21:52 Dose: 200 mg Budesonide (Pulmicort) 1 mg INHALATION RT-BID [facility] Last Admin: 06/11/16 19:38 Dose: 1 mg Cholecalciferol (Vitamin D3) 1,000 unit PO DAILY@1200 [facility] Last Admin: 06/11/16 11:49 Dose: 1,000 unit Famotidine (Pepcid) 20 mg PO BID [facility] Last Admin: 06/11/16 21:51 Dose: 20 mg Fluticasone Propionate (Flonase Nasal [place]) 1 spray EA NOSTRIL DAILY PRN PRN Reason: Allergy Symptoms Formoterol Fumarate (Perforomist) 20 mcg INHALATION RT-BID [facility] Last Admin: 06/11/16 19:38 Dose: 20 mcg Guaifenesin/Dextromethorphan (Robitussin Dm) 10 ml PO Q6H PRN PRN Reason: Cough Heparin Sodium (Porcine) (Heparin) 5,000 unit SQ Q12HR [facility] Last Admin: 06/11/16 21:51 Dose: 5,000 unit Vancomycin HCl 1,750 mg/ (Sodium Chloride) 250 mls @ 125 mls/hr IVPB Q12H [facility] Last Admin: 06/11/16 21:50 Dose: 125 mls/hr Insulin Human Lispro (Humalog) 0 unit SQ ACHS [facility] PRN Reason: Protocol Last Admin: 06/11/16 22:11 Dose: 6 unit Melatonin (Melatonin) 3 mg PO [facility] Last Admin: 06/11/16 21:51 Dose: 3 mg Methylprednisolone Sodium Succinate (Solu-Medrol) 60 mg IV Q6HR [facility] Last Admin: 06/11/16 18:32 Dose: 60 mg Miscellaneous Information (Vancomycin Trough Due) 0 each MISCELLANE DIRECTED ONE Stop: 06/12/16 07:01 Montelukast Sodium (Singulair) 10 mg PO [facility] Last Admin: 06/11/16 21:51 Dose: 10 mg Multivitamins (Theragran) 1 each PO DAILY@1200 [facility] Last Admin: 06/11/16 11:49 Dose: 1 each Zyflo Cr (Zileuton) (600 Mg Tab) 2 each PO BID [facility] Last Admin: 06/11/16 21:51 Dose: 2 each Polyethylene Glycol (Miralax) 17 gm PO DAILY [facility] Last Admin: 06/11/16 08:10 Dose: 17 gm Sertraline HCl (Zoloft) 100 mg PO DAILY [facility] Last Admin: 06/11/16 08:09 Dose: 100 mg Temazepam (Restoril) 15 mg PO HS PRN PRN Reason: Insomnia Trimethoprim/Sulfamethoxazole (Bactrim Ds) 1 each PO BID [facility] Last Admin: 06/11/16 21:52 Dose: 1 each Valacyclovir HCl (Valtrex) 1,000 mg PO BID [facility] Last Admin: 06/11/16 21:51 Dose: 1,000 mg Valsartan (Diovan) 40 mg PO BID [facility] Last Admin: 06/11/16 18:02 Dose: 40 mg Valsartan (Diovan) 80 mg PO BID [facility] Last Admin: 06/11/16 18:02 Dose: 80 mg Home Medications Medication Instructions Recorded Confirmed Type Ipratropium/Albuterol Sulfate 3 ml INHALATION RT-QID 12/13/13 06/04/16 History [Duoneb 0.5 mg-3 mg/3 ml Soln] Budesonide [Pulmicort Flexhaler] 2 puff INHALATION RT-BID 11/07/15 06/04/16 History Montelukast [Singulair] 10 mg PO HS 11/07/15 06/04/16 History Ranitidine HCl [Zantac] 150 mg PO BID 11/07/15 06/04/16 History Valsartan 80 mg PO BID 11/07/15 06/04/16 History Aspirin EC [Ecotrin Low Dose] 81 mg PO DAILY 06/04/16 06/04/16 History Levofloxacin [Levaquin] 500 mg PO DAILY 06/04/16 06/04/16 History Mometasone/Formoterol [Dulera 200 2 puff INHALATION RT-BID 06/04/16 06/04/16 History Mcg/5 Mcg Inhaler] Polyethylene Glycol 3350 [Miralax] 17 gm PO BID 06/04/16 06/04/16 History Sertraline [Zoloft] 100 mg PO DAILY 06/04/16 06/04/16 History Ubidecarenone [Co Q-10] 100 mg PO DAILY 06/04/16 06/04/16 History Valsartan [Diovan] 40 mg PO BID 06/04/16 06/04/16 History Zileuton [Zyflo Cr] 1,200 mg PO BID 06/04/16 06/04/16 History Allergies Allergy/AdvReac Type Severity Reaction Status Date / Time No Known Allergies Allergy Verified 06/04/16 19:24 Physical Exam Vitals: Vital Signs Temp Pulse Pulse Pulse Resp BP Pulse Ox 06/11/16 19:48 80 06/11/16 19:38 80 06/11/16 19:37 80 06/11/16 19:31 80 06/11/16 18:31 84 22 160/85 06/11/16 18:06 185/84 06/11/16 16:00 80 20 06/11/16 15:10 88 06/11/16 15:03 88 06/11/16 15:00 97.4 F L 80 20 194/95 97 06/11/16 11:00 84 06/11/16 10:51 80 06/11/16 07:22 88 06/11/16 07:13 80 06/11/16 07:07 76 95 06/11/16 07:00 97.6 F 91 20 177/82 99 06/10/16 23:06 148/64 Intake and Output 06/11/16 06/11/16 06/11/16 06:59 14:59 22:59 Intake Total 300 460 Balance 300 460 Intake: IV 300 460 Cefepime 2 gm In Sodium 50 50 Chloride 0.9% 50 ml @ 100 mls/hr IVPB Q8HR [facility] Rx# :[id number] NS @ 20 ml/hr 160 Vancomycin 1,750 mg In 250 250 Sodium Chloride 0.9% 250 ml @ 125 mls/hr IVPB Q12H [facility] Rx#:[id number] Other: Voiding Method Toilet Toilet Urinal Urinal # Voids 1 3 # Bowel Movements 1 Weight 81.647 kg Patient Weight 06/12/16 06:59 Weight 81.647 kg Pleasant 75-year-old gentleman sitting upright complaining of some shortness of breath receiving a respiratory treatment. HEENT: Anicteric conjunctiva are pink and moist nasal mucosa grossly intact without significant lesions, there is no thrush. Neck: The neck is supple without significant lymphadenopathy or thyromegaly. Lungs: Symmetrical bilateral air entry with expiratory wheezes that are scattered throughout the lung cordova. No sherlyn bronchial sounds minimal dullness at the bases, no egophony. Heart: Regular rate and rhythm with an audible S1-S2, no S3 no S4. There is no significant murmur click or rub, PMI was nondisplaced. Abdomen: Positive bowel sounds soft and nontender without palpable masses or organomegaly. There was no guarding or rebound. Extremities: The upper extremities have excellent pulses they are symmetric, no significant petechiae or telangiectasia. No splinter hemorrhages were noted. The lower extremities are free from significant edema. The peripheral pulses were 2+ and symmetric. Neuro: Awake alert oriented to person place and time. There are no acute new gross focal sensory motor deficits. Skin in general there is some thinning with no significant open lesions except onto the left buttocks. Over the dermatome of the buttocks is the vesicular rash that has some opening and drainage of some bloody material. It is somewhat tender to touch. Results CBC & Chem 7: 06/10/16 07:27 06/10/16 07:27 Labs: Abnormal Lab Results - Last 24 Hours (Table) 06/11/16 06/11/16 06/11/16 Range/Units 07:48 11:37 17:01 POC Glucose (mg/dL) 135 H 197 H 130 H (75-99) mg/dL 06/11/16 06/11/16 Range/Units 20:55 22:10 POC Glucose (mg/dL) 212 H 211 H (75-99) mg/dL Laboratory Results WBC 11.6 k/uL (3.8-10.6) H 06/10/16 07:27 RBC 5.21 m/uL (4.30-5.90) 06/10/16 07:27 Hgb 14.9 gm/dL (13.0-17.5) 06/10/16 07:27 Hct 47.9 % (39.0-53.0) 06/10/16 07:27 MCV 92.1 fL (80.0-100.0) 06/10/16 07:27 MCH 28.7 pg (25.0-35.0) 06/10/16 07:27 MCHC 31.2 g/dL (31.0-37.0) 06/10/16 07:27 RDW 14.0 % (11.5-15.5) 06/10/16 07:27 Plt Count 168 k/uL (150-450) 06/10/16 07:27 Neutrophils % 93 % 06/10/16 07:27 Lymphocytes % 2 % 06/10/16 07:27 Monocytes % 4 % 06/10/16 07:27 Eosinophils % 0 % 06/10/16 07:27 Basophils % 0 % 06/10/16 07:27 Neutrophils # 10.8 k/uL (1.3-7.7) H 06/10/16 07:27 Lymphocytes # 0.2 k/uL (1.0-4.8) L 06/10/16 07:27 Monocytes # 0.5 k/uL (0-1.0) 06/10/16 07:27 Eosinophils # 0.0 k/uL (0-0.7) 06/10/16 07:27 Basophils # 0.0 k/uL (0-0.2) 06/10/16 07:27 Sodium 137 mmol/L (137-145) 06/10/16 07:27 Potassium 4.7 mmol/L (3.5-5.1) 06/10/16 07:27 Chloride 101 mmol/L (98-107) 06/10/16 07:27 Carbon Dioxide 27 mmol/L (22-30) 06/10/16 07:27 Anion Gap 9 mmol/L 06/10/16 07:27 BUN 26 mg/dL (9-20) H 06/10/16 07:27 Creatinine 0.58 mg/dL (0.66-1.25) L 06/10/16 07:27 Est GFR (MDRD) Af Amer >60 (>60 ml/min/1.73 sqM) 06/10/16 07:27 Est GFR (MDRD) Non-Af >60 (>60 ml/min/1.73 sqM) 06/10/16 07:27 Glucose 131 mg/dL (74-99) H 06/10/16 07:27 POC Glucose (mg/dL) 211 mg/dL (75-99) H 06/11/16 22:10 POC Glu Driver'S License Reviewing Officer ID Marycruz Ellis 06/11/16 22:[address] Glu mg/dL 123 mg/dL 06/05/16 07:47 Hemoglobin A1c 5.9 % (4.2-6.1) 06/05/16 07:47 Calcium 8.3 mg/dL (8.4-10.2) L 06/10/16 07:27 Total Bilirubin 0.6 mg/dL (0.2-1.3) 06/06/16 06:58 Conjugated Bilirubin 0.0 mg/dL (0.0-0.3) 06/06/16 06:58 Unconjugated Bilirubin 0.4 mg/dL (0.0-1.1) 06/06/16 06:58 Delta Bilirubin 0.2 mg/dL (0.0-0.2) 06/06/16 06:58 AST 14 U/L (17-59) L 06/06/16 06:58 ALT 31 U/L (21-72) 06/06/16 06:58 Alkaline Phosphatase 57 U/L (38-126) 06/06/16 06:58 Total Protein 5.0 g/dL (6.3-8.2) L 06/06/16 06:58 Albumin 2.7 g/dL (3.5-5.0) L 06/06/16 06:58 Urine Color Yellow 06/05/16 16:30 Urine Appearance Clear (Clear) 06/05/16 16:30 Urine pH 6.0 (5.0-8.0) 06/05/16 16:30 Ur Specific [employer] 1.026 (1.001-1.035) 06/05/16 16:30 Urine Protein 1+ (Negative) H 06/05/16 16:30 Urine Glucose (UA) Negative (Negative) 06/05/16 16:30 Urine Ketones Negative (Negative) 06/05/16 16:30 Urine Blood Negative (Negative) 06/05/16 16:30 Urine Nitrate Negative (Negative) 06/05/16 16:30 Urine Bilirubin Negative (Negative) 06/05/16 16:30 Urine Urobilinogen <2.0 mg/dL (<2.0) 06/05/16 16:30 Ur Leukocyte Esterase Negative (Negative) 06/05/16 16:30 Urine RBC 2 /hpf (0-5) 06/05/16 16:30 Urine WBC 2 /hpf (0-5) 06/05/16 16:30 Ur Squamous Epith Cells <1 /hpf (0-4) 02/17/17 16:30 Urine Bacteria Rare /hpf (None) H 06/05/16 16:30 Hyaline Casts 4 /lpf (0-2) H 06/05/16 16:30 Urine Mucus Rare /hpf (None) H 06/05/16 16:30 Vancomycin Trough 18.5 ug/mL 06/09/16 07:43 Influenza Type A RNA Not Detected (Not Detectd) 06/08/16 21:30 Influenza Type B (PCR) Not Detected (Not Detectd) 06/08/16 21:30 Assessment and Plan (1) Varicella zoster Narrative/Plan: 75-year-old male who has a history of significant underlying COPD transferred from outside hospital for treatment of his underlying significant shortness of breath. Receiving antibiotic therapy and steroids. With this is now developed evidence of the varicella-zoster onto the left buttocks and a single dermatome. He fortunately is not in severe pain. Antiviral therapy with Valtrex is added. He is urinary receiving steroid therapy for his COPD. And should remain on a steroid tapering dose with his Valtrex at discharge. Fortunately pain control is not an issue. Minimal leukocytosis occurring likely in the bases of his steroid therapy as well as the current viral infection. Chest CTA admission is reviewed without evidence of significant pulmonary embolus or pneumonia. Antibiotic therapy is descalated to trimethoprim sulfamethoxazole. Status: Acute (2) COPD with exacerbation Status: Acute
[2016-06-11] MEDS: hydrALAZINE HCL 20 MG/ML 1 ML VIAL IVP PRN (23:10)
[2016-06-12] MEDS: methylPREDNISolone SOD SUCCI 125 MG/2 ML VIAL IV SCH ×2 (05:41→12:48)
[2016-06-12] MEDS ORDERED: VANCOMYCIN TROUGH DUE 1 EACH MISC MISCELLANE ONE (07:00)
[2016-06-12 07:46] LABS: CH 28.8; CHCM 32.8; HCT 44.4 % (39.0-53.0); HGB 14.6 gm/dL (13.0-17.5); MCH 28.9 pg (25.0-35.0); MCHC 32.8 g/dL (31.0-37.0); MCV 88.2 fL (80.0-100.0); Mean Platelet Volume 7.8; RBC 5.03 m/uL (4.30-5.90); RDW 13.8 % (11.5-15.5); WBC 11.4 k/uL (3.8-10.6)
[2016-06-12 07:46] LABS: Glucose,Whole Blood 116 mg/dL (75-99)
[2016-06-12] MEDS: INSULIN LISPRO (humaLOG) 300 UNIT/3 ML VIAL SQ SCH ×4 (08:02→21:53)
[2016-06-12] MEDS: BENZONATATE 100 MG CAP PO SCH ×3 (08:03→21:51)
[2016-06-12] MEDS: VALSARTAN 80 MG TAB PO SCH ×2 (08:03→21:51)
[2016-06-12] MEDS: valACYclovir HCL 1,000 MG TABLET PO SCH ×2 (08:03→21:52)
[2016-06-12] MEDS: SULFAMETHOX-TMP 800-160MG 1 EACH TAB PO SCH ×2 (08:03→21:52)
[2016-06-12] MEDS: SERTRALINE 100 MG TAB PO SCH (08:04)
[2016-06-12] MEDS: POLYETHYLENE GLYCOL 3350 17 GM POWD.PACK PO SCH (08:04)
[2016-06-12] MEDS: HEPARIN SODIUM,PORCINE 5,000 UNIT/ML 1 ML VIAL SQ SCH ×2 (08:04→21:52)
[2016-06-12] MEDS: ASPIRIN 81 MG CHEW PO SCH (08:04)
[2016-06-12] MEDS: FAMOTIDINE 20 MG TAB PO SCH ×2 (08:04→21:53)
[2016-06-12] MEDS: amLODIPine 5 MG TAB PO SCH ×2 (08:04→21:53)
[2016-06-12] MEDS: VALSARTAN 40 MG TAB PO SCH ×2 (08:05→21:52)
[2016-06-12] MEDS: ZILEUTON PO SCH ×2 (08:09→21:52)
[2016-06-12] MEDS: BUDESONIDE 1 MG/2 ML NEBU INHALATION SCH ×2 (08:25→20:10)
[2016-06-12] MEDS: FORMOTEROL FUMARATE 20 MCG/2 ML NEBU INHALATION SCH ×2 (08:25→20:10)
[2016-06-12] MEDS: IPRATROPIUM-ALBUTEROL 3 ML NEB INHALATION SCH ×4 (08:25→20:11)
[2016-06-12] MEDS: VANCOMYCIN 1,750 MG in SODIUM CHLORIDE 0.9% 250 ML IVPB SCH (08:59)
[2016-06-12 11:16] LABS: Glucose,Whole Blood 221 mg/dL (75-99)
[2016-06-12] MEDS: MULTIVITAMINS, THERA 1 EACH TAB PO SCH (12:48)
[2016-06-12 14:06] LABS: Anion Gap 4 mmol/L; Blood Urea Nitrogen 29 mg/dL (9-20); Calcium 8.4 mg/dL (8.4-10.2); Carbon Dioxide 30 mmol/L (22-30); Chloride 101 mmol/L (98-107); Glucose 135 mg/dL (74-99); Non-African American GFR(MDRD) >60 (>60 ml/min/1.73 sqM); Potassium 4.8 mmol/L (3.5-5.1); Sodium 135 mmol/L (137-145)
--- NOTE | 2016-06-12 14:12 | PN ---
Patient is admitted with COPD and severe tracheobronchitis. Because of the systemic steroids, patient ended up having shingles in the left buttock area. Valtrex was added. Patient was evaluated by Infectious Disease. Patient has minimal improvement compared to yesterday but still quite a bit short of breath. Patient appears to be improving with medical therapy. REVIEW OF SYSTEMS: CARDIOVASCULAR: No chest pain, no orthopnea, no PND, no palpitations. PULMONARY: Denied any shortness of breath. No cough or hemoptysis. GASTROINTESTINAL: No diarrhea, nausea or vomiting. No abdominal pain. Normoactive bowel sounds. NEUROLOGIC: No headaches, no weakness, no numbness. Medications were reviewed. Medication changes as mentioned in the interval history. PHYSICAL EXAMINATION: VITAL SIGNS: Temperature 97.1, pulse of 84, respiratory rate of 20, blood pressure is 156/89. Saturating at 96% on 2-L O2 nasal cannula. GENERAL: The patient is alert and oriented x3, not in any acute distress. Well developed, well nourished. HEENT: Pupils are round and equally reacting to light. EOMI. No scleral icterus. No conjunctival pallor. Normocephalic, atraumatic. No pharyngeal erythema. No thyromegaly. CARDIOVASCULAR: S1 and S2 present. No murmurs, rubs, or gallops. PULMONARY: Rhonchus breath sounds. Significant decreased air entry into the bilateral lung cordova. No wheezing was appreciated. ABDOMEN: Soft, nontender, nondistended, normoactive bowel sounds. No palpable organomegaly. MUSCULOSKELETAL: No joint swelling or deformity. EXTREMITIES: No cyanosis, clubbing, or pedal edema. NEUROLOGICAL: Gross neurological examination did not reveal any focal deficits. SKIN: Patient does have dermatomal distribution of shingles in the left buttock area. No open lesions. Laboratory data was reviewed. No significant abnormalities. ASSESSMENT AND PLAN: 1. Acute exacerbation of chronic obstructive pulmonary disease, patient has central lobe emphysema, patient has acute hypercapnic respiratory failure secondary to chronic obstructive pulmonary disease exacerbation. The patient does have chronic obstructive pulmonary disease. Continue with systemic steroids, continue to taper. 2. Left buttock shingles. 3. Severe tracheobronchitis. Patient is on Cefepime and vancomycin, which will be continued. Further antibiotics as per Dr. Wyatt. 4. Left buttock shingles for which patient was started on Valtrex. 5. Hyperlipidemia. 6. Hypertension. 7. Elevated blood sugar. Blood sugars are fairly well today and continue the present regimen. 8. Chronic hypercapnic respiratory failure secondary to chronic obstructive pulmonary disease.
--- NOTE | 2016-06-12 15:39 | P.PN ---
Subjective This is a very pleasant 75-year-old gentleman with a known history of chronic obstructive pulmonary disease and pulmonary fibrosis. He has a 40+ year pack per day smoking history. He also has a history of hyperlipidemia, hypertension, previous myocardial infarction status post coronary artery bypass grafting. He was admitted here in 06/04/2016 after being initially treated in [place] for COPD exacerbation without any significant improvement. He has been having ongoing worsening shortness of breath with dyspnea on minimal exertion. A CT angiogram ruled out pulmonary embolism. There was severe centrilobular emphysema noted. There is nodular peripheral parenchymal scarring in the left lung base. The patient is seen again today 06/09/2016 in follow-up on the regular medical floor. He is awake and alert in no acute distress. He states his breathing is slightly better today as compared to yesterday. Slow to progress. He is maintaining good O2 saturations in the mid 90s on 2 L/m per nasal cannula. Afebrile. No leukocytosis. The patient is seen again today in follow-up 06/10/2016. He is definitely feeling better today as compared to yesterday. He is less short of breath. He has a loose nonproductive cough. He is getting closer to his baseline. He's been up ambulating without significant distress. He is maintaining good O2 saturations in the mid 90s on room air. He remains afebrile. On 06/11/2016 the patient is being seen in follow-up. COPD gradually improving. No major respiratory difficulties. His cough remains congested. He was inquiring about the bronchoscopy, however, we did not think this will be needed and we think the patient will ultimately recover with medical treatment. He remains on bronchodilators and systemic steroids. The patient is seen again today 06/12/2016 in follow-up on the regular medical floor. He is awake and alert in no acute distress. He has been ambulating up and down the hallway with his oxygen on. He states he is breathing slightly better today as compared to yesterday. Still not quite back to his baseline. Objective - Vital Signs Vital signs: Vital Signs Temp 96.8 F L 06/12/16 15:00 Pulse 86 06/12/16 15:00 Resp 17 06/12/16 15:00 BP 154/84 06/12/16 15:00 Pulse Ox 97 06/12/16 15:00 Intake & Output 06/11/16 06/12/16 06/12/16 18:59 06:59 18:59 Intake Total 460 80 Output Total 200 200 Balance 460 -120 -200 Weight 81.647 kg 81.647 kg Intake: IV 460 80 Cefepime 2 gm In Sodium 50 Chloride 0.9% 50 ml @ 100 mls/hr IVPB Q8HR MARIO Rx# :[id number] NS @ 20 ml/hr 160 80 Vancomycin 1,750 mg In 250 Sodium Chloride 0.9% 250 ml @ 125 mls/hr IVPB Q12H MARIO Rx#:[id number] Output: Urine 200 200 Other: Voiding Method Toilet Toilet Toilet Urinal Urinal Urinal # Voids 3 1 1 # Bowel Movements 1 - Exam GENERAL EXAM: Alert, fairly comfortable in no apparent distress. HEAD: Normocephalic. EYES: Normal reaction of pupils, equal size. NOSE: Clear with pink turbinates. THROAT: No erythema or exudates. NECK: No masses, no JVD. CHEST: No chest wall deformity. LUNGS: Equal air entry with bilateral wheezing, diminished throughout. CVS: S1 and S2 normal with no audible murmurs, regular rhythm. ABDOMEN: No hepatosplenomegaly, normal bowel sounds, no guarding or rigidity. SPINE: No scoliosis or deformity SKIN: No rashes CENTRAL NERVOUS SYSTEM: No focal deficits, tone is normal in all 4 extremities. Extremities: There is no significant peripheral edema. No clubbing, no cyanosis. Peripheral pulses are intact. - Labs CBC & Chem 7: 06/12/16 07:32 06/12/16 07:32 Labs: Abnormal Lab Results - Last 24 Hours (Table) 06/11/16 06/11/16 06/11/16 Range/Units 17:01 20:55 22:10 WBC (3.8-10.6) k/uL Plt Count (150-450) k/uL Sodium (137-145) mmol/L BUN (9-20) mg/dL Glucose (74-99) mg/dL POC Glucose (mg/dL) 130 H 212 H 211 H (75-99) mg/dL 06/12/16 06/12/16 06/12/16 Range/Units 07:32 07:32 07:33 WBC 11.4 H (3.8-10.6) k/uL Plt Count 127 L (150-450) k/uL Sodium 135 L (137-145) mmol/L BUN 29 H (9-20) mg/dL Glucose 135 H (74-99) mg/dL POC Glucose (mg/dL) 116 H (75-99) mg/dL 06/12/16 Range/Units 11:09 WBC (3.8-10.6) k/uL Plt Count (150-450) k/uL Sodium (137-145) mmol/L BUN (9-20) mg/dL Glucose (74-99) mg/dL POC Glucose (mg/dL) 221 H (75-99) mg/dL Assessment and Plan Plan: Impression: #1 Acute exacerbation of severe centrilobular emphysema/COPD. #2 Acute hypoxic respiratory failure secondary to above. #3 History of 40 pack year smoking history however quit approximately 18 years ago. #4 Coronary artery disease with previous coronary artery bypass grafting. #5 Hyperlipidemia. #6 Hypertension. Plan: The patient was seen and evaluated by Dr. Tobias. We'll continue with his bronchodilators along with Pulmicort and Perforomist inhalations, Singulair, and antibiotics. We will start to taper his steroids. He would benefit from outpatient follow-up in our office where pulmonary function testing could be performed to evaluate the severity of his COPD and make recommendations for maintenance medications. We will increase his activity as tolerated. We'll continue to follow and make further recommendations based on his clinical status.
[2016-06-12 17:10] LABS: Glucose,Whole Blood 118 mg/dL (75-99)
[2016-06-12] MEDS: methylPREDNISolone SOD SUCCI 40 MG/ML 1 ML VIAL IV SCH ×2 (17:18→23:25)
[2016-06-12] MEDS: CHOLECALCIFEROL 1,000 UNIT TAB PO SCH (17:20)
--- NOTE | 2016-06-12 18:05 | P.PN ---
Subjective Principal diagnosis: Rash left buttocks 75-year-old male who has a known history of COPD that is oxygen dependent as well as underlying hypertension and hypertensive cardiovascular disease. Presented to [facility] because of significant shortness of breath. Because he was so profoundly short of breath and was transferred to our facility for care under pulmonology. His respiratory medications have been altered in his been treated with steroid therapy. He relates that he still feels somewhat short of breath but better than admission. However is now developed evidence significant rash onto his left buttocks. It is somewhat painful in nature. It started to drain and the last several hours. Because of the painful draining rash the infectious diseases consultation was requested. This pleasant gentleman is known to have the advanced COPD and pulmonology is concerned that he has pulmonary fibrosis. The patient relates to not having high-grade fever, chills or rigors at this time. He does have cough barking in nature at times without much sputum production. No hemoptysis. His weight has been stable. Still feels short of breath with cough today. Objective - Vital Signs Vital signs: Vital Signs Temp 97.0 F L 06/12/16 17:37 Pulse 88 06/12/16 17:37 Resp 19 06/12/16 17:37 BP 155/74 06/12/16 17:37 Pulse Ox 97 06/12/16 17:37 Intake & Output 06/11/16 06/12/16 06/12/16 18:59 06:59 18:59 Intake Total 460 80 200 Output Total 200 200 Balance 460 -120 0 Weight 81.647 kg 81.647 kg Intake: IV 460 80 Cefepime 2 gm In Sodium 50 Chloride 0.9% 50 ml @ 100 mls/hr IVPB Q8HR MARIO Rx# :[id number] NS @ 20 ml/hr 160 80 Vancomycin 1,750 mg In 250 Sodium Chloride 0.9% 250 ml @ 125 mls/hr IVPB Q12H MARIO Rx#:[id number] Oral 200 Output: Urine 200 200 Other: Voiding Method Toilet Toilet Toilet Urinal Urinal Urinal # Voids 3 1 1 # Bowel Movements 1 - Exam Pleasant 75-year-old gentleman sitting upright complaining of some shortness of breath receiving a respiratory treatment. HEENT: Anicteric conjunctiva are pink and moist nasal mucosa grossly intact without significant lesions, there is no thrush. Neck: The neck is supple without significant lymphadenopathy or thyromegaly. Lungs: Symmetrical bilateral air entry with expiratory wheezes that are scattered throughout the lung cordova. No sherlyn bronchial sounds minimal dullness at the bases, no egophony. Heart: Regular rate and rhythm with an audible S1-S2, no S3 no S4. There is no significant murmur click or rub, PMI was nondisplaced. Abdomen: Positive bowel sounds soft and nontender without palpable masses or organomegaly. There was no guarding or rebound. Extremities: The upper extremities have excellent pulses they are symmetric, no significant petechiae or telangiectasia. No splinter hemorrhages were noted. The lower extremities are free from significant edema. The peripheral pulses were 2+ and symmetric. Neuro: Awake alert oriented to person place and time. There are no acute new gross focal sensory motor deficits. Skin in general there is some thinning with no significant open lesions except onto the left buttocks. Over the dermatome of the buttocks is the vesicular rash that has some opening and drainage of some bloody material. It is somewhat tender to touch. - Labs CBC & Chem 7: 06/12/16 07:32 06/12/16 07:32 Labs: Abnormal Lab Results - Last 24 Hours (Table) 06/11/16 06/11/16 06/12/16 Range/Units 20:55 22:10 07:32 WBC 11.4 H (3.8-10.6) k/uL Plt Count 127 L (150-450) k/uL Sodium (137-145) mmol/L BUN (9-20) mg/dL Glucose (74-99) mg/dL POC Glucose (mg/dL) 212 H 211 H (75-99) mg/dL 06/12/16 06/12/16 06/12/16 Range/Units 07:32 07:33 11:09 WBC (3.8-10.6) k/uL Plt Count (150-450) k/uL Sodium 135 L (137-145) mmol/L BUN 29 H (9-20) mg/dL Glucose 135 H (74-99) mg/dL POC Glucose (mg/dL) 116 H 221 H (75-99) mg/dL 06/12/16 Range/Units 16:51 WBC (3.8-10.6) k/uL Plt Count (150-450) k/uL Sodium (137-145) mmol/L BUN (9-20) mg/dL Glucose (74-99) mg/dL POC Glucose (mg/dL) 118 H (75-99) mg/dL Laboratory Results WBC 11.4 k/uL (3.8-10.6) H 06/12/16 07:32 RBC 5.03 m/uL (4.30-5.90) 06/12/16 07:32 Hgb 14.6 gm/dL (13.0-17.5) 06/12/16 07:32 Hct 44.4 % (39.0-53.0) 06/12/16 07:32 MCV 88.2 fL (80.0-100.0) 06/12/16 07:32 MCH 28.9 pg (25.0-35.0) 06/12/16 07:32 MCHC 32.8 g/dL (31.0-37.0) 06/12/16 07:32 RDW 13.8 % (11.5-15.5) 06/12/16 07:32 Plt Count 127 k/uL (150-450) L 06/12/16 07:32 Neutrophils % 93 % 06/10/16 07:27 Lymphocytes % 2 % 06/10/16 07:27 Monocytes % 4 % 06/10/16 07:27 Eosinophils % 0 % 06/10/16 07:27 Basophils % 0 % 06/10/16 07:27 Neutrophils # 10.8 k/uL (1.3-7.7) H 06/10/16 07:27 Lymphocytes # 0.2 k/uL (1.0-4.8) L 06/10/16 07:27 Monocytes # 0.5 k/uL (0-1.0) 06/10/16 07:27 Eosinophils # 0.0 k/uL (0-0.7) 06/10/16 07:27 Basophils # 0.0 k/uL (0-0.2) 06/10/16 07:27 Sodium 135 mmol/L (137-145) L 06/12/16 07:32 Potassium 4.8 mmol/L (3.5-5.1) 06/12/16 07:32 Chloride 101 mmol/L (98-107) 06/12/16 07:32 Carbon Dioxide 30 mmol/L (22-30) 06/12/16 07:32 Anion Gap 4 mmol/L 06/12/16 07:32 BUN 29 mg/dL (9-20) H 06/12/16 07:32 Creatinine 0.69 mg/dL (0.66-1.25) 06/12/16 07:32 Est GFR (MDRD) Af Amer >60 (>60 ml/min/1.73 sqM) 06/12/16 07:32 Est GFR (MDRD) Non-Af >60 (>60 ml/min/1.73 sqM) 06/12/16 07:32 Glucose 135 mg/dL (74-99) H 06/12/16 07:32 POC Glucose (mg/dL) 118 mg/dL (75-99) H 06/12/16 16:51 POC Glu [employer] Kel Hammonds 06/12/16 16:[address] Glu mg/dL 123 mg/dL 06/05/16 07:47 Hemoglobin A1c 5.9 % (4.2-6.1) 06/05/16 07:47 Calcium 8.4 mg/dL (8.4-10.2) 06/12/16 07:32 Total Bilirubin 0.6 mg/dL (0.2-1.3) 06/06/16 06:58 Conjugated Bilirubin 0.0 mg/dL (0.0-0.3) 06/06/16 06:58 Unconjugated Bilirubin 0.4 mg/dL (0.0-1.1) 06/06/16 06:58 Delta Bilirubin 0.2 mg/dL (0.0-0.2) 06/06/16 06:58 AST 14 U/L (17-59) L 06/06/16 06:58 ALT 31 U/L (21-72) 06/06/16 06:58 Alkaline Phosphatase 57 U/L (38-126) 06/06/16 06:58 Total Protein 5.0 g/dL (6.3-8.2) L 06/06/16 06:58 Albumin 2.7 g/dL (3.5-5.0) L 06/06/16 06:58 Urine Color Yellow 06/05/16 16:30 Urine Appearance Clear (Clear) 06/05/16 16:30 Urine pH 6.0 (5.0-8.0) 06/05/16 16:30 Ur Specific [place] 1.026 (1.001-1.035) 06/05/16 16:30 Urine Protein 1+ (Negative) H 06/05/16 16:30 Urine Glucose (UA) Negative (Negative) 06/05/16 16:30 Urine Ketones Negative (Negative) 06/05/16 16:30 Urine Blood Negative (Negative) 06/05/16 16:30 Urine Nitrate Negative (Negative) 06/05/16 16:30 Urine Bilirubin Negative (Negative) 06/05/16 16:30 Urine Urobilinogen <2.0 mg/dL (<2.0) 06/05/16 16:30 Ur Leukocyte Esterase Negative (Negative) 06/05/16 16:30 Urine RBC 2 /hpf (0-5) 06/05/16 16:30 Urine WBC 2 /hpf (0-5) 06/05/16 16:30 Ur Squamous Epith Cells <1 /hpf (0-4) 06/05/16 16:30 Urine Bacteria Rare /hpf (None) H 06/05/16 16:30 Hyaline Casts 4 /lpf (0-2) H 06/05/16 16:30 Urine Mucus Rare /hpf (None) H 06/05/16 16:30 Vancomycin Trough 21.9 ug/mL 06/12/16 07:32 Influenza Type A RNA Not Detected (Not Detectd) 06/08/16 21:30 Influenza Type B (PCR) Not Detected (Not Detectd) 06/08/16 21:30 Assessment and Plan (1) Varicella zoster Narrative/Plan: 75-year-old male who has a history of significant underlying COPD transferred from outside hospital for treatment of his underlying significant shortness of breath. Receiving antibiotic therapy and steroids. With this is now developed evidence of the varicella-zoster onto the left buttocks and a single dermatome. He fortunately is not in severe pain. Antiviral therapy with Valtrex is added. He is also receiving steroid therapy for his COPD. And should remain on a steroid tapering dose with his Valtrex at discharge. Fortunately pain control is not an issue. Minimal leukocytosis occurring likely in the bases of his steroid therapy as well as the current viral infection. Chest CTA admission is reviewed without evidence of significant pulmonary embolus or pneumonia. Antibiotic therapy is descalated to trimethoprim sulfamethoxazole. Status: Acute (2) COPD with exacerbation Status: Acute
[2016-06-12 20:45] LABS: Glucose,Whole Blood 222 mg/dL (75-99)
[2016-06-12] MEDS: VANCOMYCIN 1,500 MG in SODIUM CHLORIDE 0.9% 250 ML IVPB SCH (21:50)
[2016-06-12] MEDS: ALPRAZolam 0.25 MG TAB PO PRN (21:50)
[2016-06-12] MEDS: MELATONIN 3 MG TABLET PO SCH (21:52)
[2016-06-12] MEDS: MONTELUKAST 10 MG TAB PO SCH (21:52)
[2016-06-13 07:23] LABS: Glucose,Whole Blood 115 mg/dL (75-99)
[2016-06-13] MEDS: INSULIN LISPRO (humaLOG) 300 UNIT/3 ML VIAL SQ SCH ×4 (07:33→21:28)
[2016-06-13] MEDS: amLODIPine 5 MG TAB PO SCH ×2 (07:35→21:28)
[2016-06-13] MEDS: ASPIRIN 81 MG CHEW PO SCH (07:36)
[2016-06-13] MEDS: BENZONATATE 100 MG CAP PO SCH ×3 (07:36→21:30)
[2016-06-13] MEDS: methylPREDNISolone SOD SUCCI 40 MG/ML 1 ML VIAL IV SCH ×3 (07:36→23:21)
[2016-06-13] MEDS: HEPARIN SODIUM,PORCINE 5,000 UNIT/ML 1 ML VIAL SQ SCH ×2 (07:37→21:28)
[2016-06-13] MEDS: FAMOTIDINE 20 MG TAB PO SCH ×2 (07:37→21:28)
[2016-06-13] MEDS: POLYETHYLENE GLYCOL 3350 17 GM POWD.PACK PO SCH (07:38)
[2016-06-13] MEDS: SULFAMETHOX-TMP 800-160MG 1 EACH TAB PO SCH ×2 (07:38→21:29)
[2016-06-13] MEDS: SERTRALINE 100 MG TAB PO SCH (07:38)
[2016-06-13] MEDS: ZILEUTON PO SCH ×2 (07:38→21:29)
[2016-06-13] MEDS: VALSARTAN 40 MG TAB PO SCH ×2 (07:39→21:30)
[2016-06-13] MEDS: valACYclovir HCL 1,000 MG TABLET PO SCH ×2 (07:39→21:30)
[2016-06-13] MEDS: VALSARTAN 80 MG TAB PO SCH ×2 (07:39→21:30)
[2016-06-13] MEDS: BUDESONIDE 1 MG/2 ML NEBU INHALATION SCH ×2 (07:52→20:29)
[2016-06-13] MEDS: FORMOTEROL FUMARATE 20 MCG/2 ML NEBU INHALATION SCH ×2 (07:52→20:29)
[2016-06-13] MEDS: IPRATROPIUM-ALBUTEROL 3 ML NEB INHALATION SCH ×4 (07:52→20:29)
[2016-06-13] MEDS: VANCOMYCIN 1,500 MG in SODIUM CHLORIDE 0.9% 250 ML IVPB SCH ×2 (10:08→21:30)
--- NOTE | 2016-06-13 10:45 | PN ---
Patient is admitted with COPD and severe tracheobronchitis. Because of the systemic steroids, patient ended up having shingles in the left buttock area. Valtrex was added. Patient was evaluated by Infectious Disease. Patient has minimal improvement compared to yesterday but still quite a bit short of breath. Patient appears to be improving with medical therapy. REVIEW OF SYSTEMS: CARDIOVASCULAR: No chest pain, no orthopnea, no PND, no palpitations. PULMONARY: Denied any shortness of breath. No cough or hemoptysis. GASTROINTESTINAL: No diarrhea, nausea or vomiting. No abdominal pain. Normoactive bowel sounds. NEUROLOGIC: No headaches, no weakness, no numbness. Medications were reviewed. Medication changes as mentioned in the interval history. PHYSICAL EXAMINATION: VITAL SIGNS: Temperature 97.0, pulse of 76, respiratory rate of 16, blood pressure is 153/76, saturating at 96% on 2 L of O2 by nasal cannula. GENERAL: The patient is alert and oriented x3, not in any acute distress. Well developed, well nourished. HEENT: Pupils are round and equally reacting to light. EOMI. No scleral icterus. No conjunctival pallor. Normocephalic, atraumatic. No pharyngeal erythema. No thyromegaly. CARDIOVASCULAR: S1 and S2 present. No murmurs, rubs, or gallops. PULMONARY: Rhonchus breath sounds. Significant decreased air entry into the bilateral lung cordova. No wheezing was appreciated. ABDOMEN: Soft, nontender, nondistended, normoactive bowel sounds. No palpable organomegaly. MUSCULOSKELETAL: No joint swelling or deformity. EXTREMITIES: No cyanosis, clubbing, or pedal edema. NEUROLOGICAL: Gross neurological examination did not reveal any focal deficits. SKIN: Patient does have dermatomal distribution of shingles in the left buttock area. No open lesions. Laboratory data was reviewed. No significant abnormalities. ASSESSMENT AND PLAN: 1. Acute exacerbation of chronic obstructive pulmonary disease, patient has central lobe emphysema, patient has acute hypercapnic respiratory failure secondary to chronic obstructive pulmonary disease exacerbation. The patient does have chronic obstructive pulmonary disease. Continue with systemic steroids, continue to taper. 2. Left buttock shingles. 3. Severe tracheobronchitis. Patient is on Cefepime and vancomycin, which will be continued. Further antibiotics as per Dr. Wyatt. 4. Left buttock shingles for which patient was started on Valtrex. 5. Hyperlipidemia. 6. Hypertension. 7. Elevated blood sugar. Blood sugars are fairly well today and continue the present regimen. 8. Chronic hypercapnic respiratory failure secondary to chronic obstructive pulmonary disease. The patient probably needs to continue with systemic steroids until Wednesday and possibility of discharge on Wednesday. Patient has a very slow improvement. MTDD
[2016-06-13 12:04] LABS: Glucose,Whole Blood 117 mg/dL (75-99)
[2016-06-13] MEDS: CHOLECALCIFEROL 1,000 UNIT TAB PO SCH (12:32)
[2016-06-13] MEDS: MULTIVITAMINS, THERA 1 EACH TAB PO SCH (12:32)
[2016-06-13] MEDS: hydrALAZINE HCL 20 MG/ML 1 ML VIAL IVP PRN (15:49)
--- NOTE | 2016-06-13 15:50 | P.PN ---
Subjective Principal diagnosis: Rash left buttocks 75-year-old male who has a known history of COPD that is oxygen dependent as well as underlying hypertension and hypertensive cardiovascular disease. Presented to [facility] because of significant shortness of breath. Because he was so profoundly short of breath and was transferred to our facility for care under pulmonology. His respiratory medications have been altered in his been treated with steroid therapy. He relates that he still feels somewhat short of breath but better than admission. However is now developed evidence significant rash onto his left buttocks. It is somewhat painful in nature. It started to drain and the last several hours. Because of the painful draining rash the infectious diseases consultation was requested. This pleasant gentleman is known to have the advanced COPD and pulmonology is concerned that he has pulmonary fibrosis. The patient relates to not having high-grade fever, chills or rigors at this time. He does have cough barking in nature at times without much sputum production. No hemoptysis. His weight has been stable. Still feels short of breath with cough today. But does feel somewhat better but not to baseline where he was walking a treadmill for 30 minutes a day Objective - Vital Signs Vital signs: Vital Signs Temp 97.0 F L 06/13/16 15:00 Pulse 79 06/13/16 15:00 Resp 16 06/13/16 15:00 BP 179/87 06/13/16 15:00 Pulse Ox 98 06/13/16 15:00 Intake & Output 06/12/16 06/13/16 06/13/16 18:59 06:59 18:59 Intake Total 200 1410 Output Total 200 400 Balance 0 1010 Weight 81.647 kg 81.647 kg 81.647 kg Intake: Intake, IV Titration 250 Amount Vancomycin 1,500 mg In 250 Sodium Chloride 0.9% 250 ml @ 125 mls/hr IVPB Q12HR [facility] Rx#:[id number] Oral 200 1160 Output: Urine 200 400 Other: Voiding Method Toilet Toilet Toilet Urinal Urinal Urinal # Voids 1 1 2 - Exam Pleasant 75-year-old gentleman sitting upright complaining of some shortness of breath receiving a respiratory treatment. HEENT: Anicteric conjunctiva are pink and moist nasal mucosa grossly intact without significant lesions, there is no thrush. Neck: The neck is supple without significant lymphadenopathy or thyromegaly. Lungs: Symmetrical bilateral air entry with expiratory wheezes that are scattered throughout the lung cordova. No sherlyn bronchial sounds minimal dullness at the bases, no egophony. Heart: Regular rate and rhythm with an audible S1-S2, no S3 no S4. There is no significant murmur click or rub, PMI was nondisplaced. Abdomen: Positive bowel sounds soft and nontender without palpable masses or organomegaly. There was no guarding or rebound. Extremities: The upper extremities have excellent pulses they are symmetric, no significant petechiae or telangiectasia. No splinter hemorrhages were noted. The lower extremities are free from significant edema. The peripheral pulses were 2+ and symmetric. Neuro: Awake alert oriented to person place and time. There are no acute new gross focal sensory motor deficits. Skin in general there is some thinning with no significant open lesions except onto the left buttocks. Over the dermatome of the buttocks is the vesicular rash that has improved. It is mostly dried up today. It is not yet very crusted. Is no significant drainage noted today. It is less tender. - Labs CBC & Chem 7: 06/12/16 07:32 06/12/16 07:32 Labs: Abnormal Lab Results - Last 24 Hours (Table) 06/12/16 06/12/16 06/13/16 Range/Units 16:51 20:38 07:20 POC Glucose (mg/dL) 118 H 222 H 115 H (75-99) mg/dL 06/13/16 Range/Units 12:02 POC Glucose (mg/dL) 117 H (75-99) mg/dL Laboratory Results WBC 11.4 k/uL (3.8-10.6) H 06/12/16 07:32 RBC 5.03 m/uL (4.30-5.90) 06/12/16 07:32 Hgb 14.6 gm/dL (13.0-17.5) 06/12/16 07:32 Hct 44.4 % (39.0-53.0) 06/12/16 07:32 MCV 88.2 fL (80.0-100.0) 06/12/16 07:32 MCH 28.9 pg (25.0-35.0) 06/12/16 07:32 MCHC 32.8 g/dL (31.0-37.0) 06/12/16 07:32 RDW 13.8 % (11.5-15.5) 06/12/16 07:32 Plt Count 127 k/uL (150-450) L 06/12/16 07:32 Neutrophils % 93 % 06/10/16 07:27 Lymphocytes % 2 % 06/10/16 07:27 Monocytes % 4 % 06/10/16 07:27 Eosinophils % 0 % 06/10/16 07: Basophils % 0 % 06/10/16 07:27 Neutrophils # 10.8 k/uL (1.3-7.7) H 06/10/16 07:27 Lymphocytes # 0.2 k/uL (1.0-4.8) L 06/10/16 07:27 Monocytes # 0.5 k/uL (0-1.0) 06/10/16 07:27 Eosinophils # 0.0 k/uL (0-0.7) 06/10/16 07:27 Basophils # 0.0 k/uL (0-0.2) 06/10/16 07:27 Sodium 135 mmol/L (137-145) L 06/12/16 07:32 Potassium 4.8 mmol/L (3.5-5.1) 06/12/16 07:32 Chloride 101 mmol/L (98-107) 06/12/16 07:32 Carbon Dioxide 30 mmol/L (22-30) 06/12/16 07:32 Anion Gap 4 mmol/L 06/12/16 07:32 BUN 29 mg/dL (9-20) H 06/12/16 07:32 Creatinine 0.69 mg/dL (0.66-1.25) 06/12/16 07:32 Est GFR (MDRD) Af Amer >60 (>60 ml/min/1.73 sqM) 06/12/16 07:32 Est GFR (MDRD) Non-Af >60 (>60 ml/min/1.73 sqM) 06/12/16 07:32 Glucose 135 mg/dL (74-99) H 06/12/16 07:32 POC Glucose (mg/dL) 117 mg/dL (75-99) H 06/13/16 12:02 POC Glu Curing Room Supervisor EMILY Cherry, [place] 06/13/16 12:[address] Glu mg/dL 123 mg/dL 06/05/16 07:47 Hemoglobin A1c 5.9 % (4.2-6.1) 06/05/16 07:47 Calcium 8.4 mg/dL (8.4-10.2) 06/12/16 07:32 Total Bilirubin 0.6 mg/dL (0.2-1.3) 06/06/16 06:58 Conjugated Bilirubin 0.0 mg/dL (0.0-0.3) 06/06/16 06:58 Unconjugated Bilirubin 0.4 mg/dL (0.0-1.1) 06/06/16 06:58 Delta Bilirubin 0.2 mg/dL (0.0-0.2) 06/06/16 06:58 AST 14 U/L (17-59) L 06/06/16 06:58 ALT 31 U/L (21-72) 06/06/16 06:58 Alkaline Phosphatase 57 U/L (38-126) 06/06/16 06:58 Total Protein 5.0 g/dL (6.3-8.2) L 06/06/16 06:58 Albumin 2.7 g/dL (3.5-5.0) L 06/06/16 06:58 Urine Color Yellow 06/05/16 16:30 Urine Appearance Clear (Clear) 06/05/16 16:30 Urine pH 6.0 (5.0-8.0) 06/05/16 16:30 Ur Specific [place] 1.026 (1.001-1.035) 06/05/16 16:30 Urine Protein 1+ (Negative) H 06/05/16 16:30 Urine Glucose (UA) Negative (Negative) 06/05/16 16:30 Urine Ketones Negative (Negative) 06/05/16 16:30 Urine Blood Negative (Negative) 06/05/16 16:30 Urine Nitrate Negative (Negative) 06/05/16 16:30 Urine Bilirubin Negative (Negative) 06/05/16 16:30 Urine Urobilinogen <2.0 mg/dL (<2.0) 06/05/16 16:30 Ur Leukocyte Esterase Negative (Negative) 06/05/16 16:30 Urine RBC 2 /hpf (0-5) 06/05/16 16:30 Urine WBC 2 /hpf (0-5) 06/05/16 16:30 Ur Squamous Epith Cells <1 /hpf (0-4) 06/05/16 16:30 Urine Bacteria Rare /hpf (None) H 06/05/16 16:30 Hyaline Casts 4 /lpf (0-2) H 06/05/16 16:30 Urine Mucus Rare /hpf (None) H 06/05/16 16:30 Vancomycin Trough 21.9 ug/mL 06/12/16 07:32 Influenza Type A RNA Not Detected (Not Detectd) 06/08/16 21:30 Influenza Type B (PCR) Not Detected (Not Detectd) 06/08/16 21:30 Assessment and Plan (1) Varicella zoster Narrative/Plan: 75-year-old male who has a history of significant underlying COPD transferred from outside hospital for treatment of his underlying significant shortness of breath. Receiving antibiotic therapy and steroids. With this is now developed evidence of the varicella-zoster onto the left buttocks and a single dermatome. He fortunately is not in severe pain. Antiviral therapy with Valtrex is added. He is also receiving steroid therapy for his COPD. And should remain on a steroid tapering dose with his Valtrex at discharge. Fortunately pain control is not an issue. Minimal leukocytosis occurring likely in the bases of his steroid therapy as well as the current viral infection. Chest CTA at admission is reviewed without evidence of significant pulmonary embolus or pneumonia. Antibiotic therapy is descalated to trimethoprim sulfamethoxazole. Status: Acute (2) COPD with exacerbation Status: Acute
[2016-06-13 16:53] LABS: Glucose,Whole Blood 116 mg/dL (75-99)
--- NOTE | 2016-06-13 20:15 | P.PN ---
Subjective This is a very pleasant 75-year-old gentleman with a known history of chronic obstructive pulmonary disease and pulmonary fibrosis. He has a 40+ year pack per day smoking history. He also has a history of hyperlipidemia, hypertension, previous myocardial infarction status post coronary artery bypass grafting. He was admitted here in 06/04/2016 after being initially treated in [place] for COPD exacerbation without any significant improvement. He has been having ongoing worsening shortness of breath with dyspnea on minimal exertion. A CT angiogram ruled out pulmonary embolism. There was severe centrilobular emphysema noted. There is nodular peripheral parenchymal scarring in the left lung base. The patient is seen again today 06/09/2016 in follow-up on the regular medical floor. He is awake and alert in no acute distress. He states his breathing is slightly better today as compared to yesterday. Slow to progress. He is maintaining good O2 saturations in the mid 90s on 2 L/m per nasal cannula. Afebrile. No leukocytosis. The patient is seen again today in follow-up 06/10/2016. He is definitely feeling better today as compared to yesterday. He is less short of breath. He has a loose nonproductive cough. He is getting closer to his baseline. He's been up ambulating without significant distress. He is maintaining good O2 saturations in the mid 90s on room air. He remains afebrile. On 06/11/2016 the patient is being seen in follow-up. COPD gradually improving. No major respiratory difficulties. His cough remains congested. He was inquiring about the bronchoscopy, however, we did not think this will be needed and we think the patient will ultimately recover with medical treatment. He remains on bronchodilators and systemic steroids. The patient is seen again today 06/12/2016 in follow-up on the regular medical floor. He is awake and alert in no acute distress. He has been ambulating up and down the hallway with his oxygen on. He states he is breathing slightly better today as compared to yesterday. Still not quite back to his baseline. On the patient is being seen in follow-up. Continues to have some congested cough. No significant sputum production. He is on bronchodilators. He is on systemic steroids and he is receiving 40 mg of IV Solu Medrol every 8 hours. Antibiotic therapy has been simplify to Bactrim orally knowing that the CAT scan of the chest was negative for any acute pneumonia or pulmonary infiltrates. The patient is being seen by ID. The patient has zoster over his buttock on the left and the patient is taken Valtrex. Objective - Vital Signs Vital signs: Vital Signs Temp 97.0 F L 06/13/16 15:00 Pulse 96 06/13/16 16:42 Resp 16 06/13/16 15:41 BP 160/72 06/13/16 16:26 Pulse Ox 98 06/13/16 15:00 Intake & Output 06/13/16 06/13/16 06/14/16 06:59 18:59 06:59 Intake Total 1410 Output Total 400 Balance 1010 Weight 81.647 kg 81.647 kg Intake: Intake, IV Titration 250 Amount Vancomycin 1,500 mg In 250 Sodium Chloride 0.9% 250 ml @ 125 mls/hr IVPB Q12HR [facility] Rx#:[id number] Oral 1160 Output: Urine 400 Other: Voiding Method Toilet Toilet Urinal Urinal # Voids 1 2 - Exam Head exam was generally normal. There was no scleral icterus or corneal arcus. Mucous membranes were moist.Neck was supple and without jugular venous distension, thyromegaly, or carotid bruits. Carotids were easily palpable bilaterally. There was no adenopathy. Lung sounds are diminished bilaterally along with some few scattered expiratory wheeze.Cardiac exam revealed the PMI to be normally situated and sized. The rhythm was regular and no extrasystoles were noted during several minutes of auscultation. The first and second heart sounds were normal and physiologic splitting of the second heart sound was noted. There were no murmurs, rubs, clicks, or gallops.Abdominal exam revealed normal bowel sounds. The abdomen was soft, non-tender, and without masses, organomegaly, or appreciable enlargement of the abdominal aorta.Examination of the extremities revealed easily palpable radial, femoral and pedal pulses. There was no cyanosis, clubbing or edema. - Labs CBC & Chem 7: 06/12/16 07:32 06/12/16 07:32 Labs: Abnormal Lab Results - Last 24 Hours (Table) 06/12/16 06/13/16 06/13/16 Range/Units 20:38 07:20 12:02 POC Glucose (mg/dL) 222 H 115 H 117 H (75-99) mg/dL 06/13/16 Range/Units 16:51 POC Glucose (mg/dL) 116 H (75-99) mg/dL Assessment and Plan Plan: Impression: #1 Acute exacerbation of severe centrilobular emphysema/COPD. the patient is improving slowly. The patient is on a combination of bronchodilators and systemic steroids. Antibiotic coverage with Bactrim. #2 Acute hypoxic respiratory failure secondary to above. #3 History of 40 pack year smoking history however quit approximately 18 years ago. #4 Coronary artery disease with previous coronary artery bypass grafting. #5 Hyperlipidemia. #6 Hypertension. #7 zoster involving the buttock Plan Continue same treatment. Ablate this patient the hallway. CAT scan of the chest was reviewed. Agree on the antibiotics. Agree on the bronchodilators. Continue Valtrex. We'll follow.
[2016-06-13 21:20] LABS: Glucose,Whole Blood 193 mg/dL (75-99)
[2016-06-13] MEDS: MELATONIN 3 MG TABLET PO SCH (21:29)
[2016-06-13] MEDS: MONTELUKAST 10 MG TAB PO SCH (21:29)
[2016-06-13] MEDS: ALPRAZolam 0.25 MG TAB PO PRN (21:31)
[2016-06-14 07:08] LABS: Glucose,Whole Blood 137 mg/dL (75-99)
[2016-06-14] MEDS: methylPREDNISolone SOD SUCCI 40 MG/ML 1 ML VIAL IV SCH ×3 (07:12→23:54)
[2016-06-14] MEDS: POLYETHYLENE GLYCOL 3350 17 GM POWD.PACK PO SCH (07:12)
[2016-06-14] MEDS: VALSARTAN 40 MG TAB PO SCH ×2 (07:13→21:12)
[2016-06-14] MEDS: BENZONATATE 100 MG CAP PO SCH ×3 (07:13→21:12)
[2016-06-14] MEDS: SULFAMETHOX-TMP 800-160MG 1 EACH TAB PO SCH ×2 (07:13→21:12)
[2016-06-14] MEDS: amLODIPine 5 MG TAB PO SCH ×2 (07:13→21:12)
[2016-06-14] MEDS: VALSARTAN 80 MG TAB PO SCH ×2 (07:13→21:12)
[2016-06-14] MEDS: FAMOTIDINE 20 MG TAB PO SCH ×2 (07:13→21:13)
[2016-06-14] MEDS: valACYclovir HCL 1,000 MG TABLET PO SCH ×2 (07:13→21:12)
[2016-06-14] MEDS: HEPARIN SODIUM,PORCINE 5,000 UNIT/ML 1 ML VIAL SQ SCH ×2 (07:14→21:13)
[2016-06-14] MEDS: ZILEUTON PO SCH ×2 (07:15→21:19)
[2016-06-14] MEDS: ASPIRIN 81 MG CHEW PO SCH (07:15)
[2016-06-14] MEDS: IPRATROPIUM-ALBUTEROL 3 ML NEB INHALATION SCH ×4 (07:29→20:52)
[2016-06-14] MEDS: INSULIN LISPRO (humaLOG) 300 UNIT/3 ML VIAL SQ SCH ×4 (07:36→21:13)
[2016-06-14] MEDS: FORMOTEROL FUMARATE 20 MCG/2 ML NEBU INHALATION SCH ×2 (07:37→20:52)
[2016-06-14] MEDS: BUDESONIDE 1 MG/2 ML NEBU INHALATION SCH ×2 (07:37→20:52)
[2016-06-14] MEDS: VANCOMYCIN 1,500 MG in SODIUM CHLORIDE 0.9% 250 ML IVPB SCH ×2 (08:58→21:12)
[2016-06-14] MEDS: SERTRALINE 100 MG TAB PO SCH (10:07)
--- NOTE | 2016-06-14 11:40 | PN ---
Patient is admitted with COPD and severe tracheobronchitis and patient is also being treated for shingles. Patient is presently on valacyclovir and vancomycin and Bactrim. Antibiotics are being managed by Dr. Jg Wyatt. REVIEW OF SYSTEMS: CARDIOVASCULAR: No chest pain, no orthopnea, no PND, no palpitations. PULMONARY: Continued shortness of breath, which is improving. GASTROINTESTINAL: No diarrhea, nausea or vomiting. No abdominal pain. Normoactive bowel sounds. NEUROLOGIC: No headaches, no weakness, no numbness. Medications were reviewed. PHYSICAL EXAMINATION: VITAL SIGNS: Temperature 97.9, pulse of 96, respiratory rate of 18, blood pressure 156/76, saturating at 96% on 2-L O2 nasal cannula. GENERAL: The patient is alert and oriented x3, not in any acute distress. Well developed, well nourished. HEENT: Pupils are round and equally reacting to light. EOMI. No scleral icterus. No conjunctival pallor. Normocephalic, atraumatic. No pharyngeal erythema. No thyromegaly. CARDIOVASCULAR: S1 and S2 present. No murmurs, rubs, or gallops. PULMONARY: Decreased breath sounds bilaterally, very minimal expiratory wheezing was appreciated. ABDOMEN: Soft, nontender, nondistended, normoactive bowel sounds. No palpable organomegaly. MUSCULOSKELETAL: No joint swelling or deformity. EXTREMITIES: No cyanosis, clubbing, or pedal edema. NEUROLOGICAL: Gross neurological examination did not reveal any focal deficits. SKIN: No rashes. LABORATORY DATA: No lab data is available from today. ASSESSMENT AND PLAN: 1. Acute exacerbation of chronic obstructive pulmonary disease pain. Continue systemic steroids inhalational treatment. ( ) shingles. 2. Severe tracheobronchitis. 3. Hyperlipidemia. 4. Hypertension. 5. Chronic hypercapnic respiratory failure secondary to chronic obstructive pulmonary disease. PLAN: Continue with present medications. Once his respiratory status improves, patient will be discharged. Patient probably can be discharged tomorrow.
[2016-06-14] MEDS: MULTIVITAMINS, THERA 1 EACH TAB PO SCH (11:59)
[2016-06-14] MEDS: CHOLECALCIFEROL 1,000 UNIT TAB PO SCH (11:59)
[2016-06-14 12:47] LABS: Glucose,Whole Blood 161 mg/dL (75-99)
--- NOTE | 2016-06-14 13:37 | P.PN ---
Subjective Principal diagnosis: Rash left buttocks 75-year-old male who has a known history of COPD that is oxygen dependent as well as underlying hypertension and hypertensive cardiovascular disease. Presented to [facility] because of significant shortness of breath. Because he was so profoundly short of breath and was transferred to our facility for care under pulmonology. His respiratory medications have been altered in his been treated with steroid therapy. He relates that he still feels somewhat short of breath but better than admission. However is now developed evidence significant rash onto his left buttocks. It is somewhat painful in nature. It started to drain and the last several hours. Because of the painful draining rash the infectious diseases consultation was requested. This pleasant gentleman is known to have the advanced COPD and pulmonology is concerned that he has pulmonary fibrosis. The patient relates to not having high-grade fever, chills or rigors at this time. He does have cough barking in nature at times without much sputum production. No hemoptysis. His weight has been stable. Respiratory status is improved today. He is less short of breath. Less cough. Objective - Vital Signs Vital signs: Vital Signs Temp 97.9 F 06/14/16 07:00 Pulse 92 06/14/16 11:10 Resp 18 06/14/16 08:00 BP 156/76 06/14/16 07:00 Pulse Ox 96 06/14/16 07:00 Intake & Output 06/13/16 06/14/16 06/14/16 18:59 06:59 18:59 Intake Total 1410 40 1050 Output Total 400 Balance 1010 40 1050 Weight 81.647 kg 81.647 kg Intake: IV 40 NS @ 20 ml/hr 40 Intake, IV Titration 250 250 Amount Vancomycin 1,500 mg In 250 250 Sodium Chloride 0.9% 250 ml @ 125 mls/hr IVPB Q12HR [facility] Rx#:[id number] Oral 1160 800 Output: Urine 400 Other: Voiding Method Toilet Toilet Toilet Urinal Urinal Urinal # Voids 2 1 3 - Exam Pleasant 75-year-old gentleman sitting upright complaining of some shortness of breath receiving a respiratory treatment. HEENT: Anicteric conjunctiva are pink and moist nasal mucosa grossly intact without significant lesions, there is no thrush. Neck: The neck is supple without significant lymphadenopathy or thyromegaly. Lungs: Symmetrical bilateral air entry with expiratory wheezes that are scattered throughout the lung cordova. No sherlyn bronchial sounds minimal dullness at the bases, no egophony. Heart: Regular rate and rhythm with an audible S1-S2, no S3 no S4. There is no significant murmur click or rub, PMI was nondisplaced. Abdomen: Positive bowel sounds soft and nontender without palpable masses or organomegaly. There was no guarding or rebound. Extremities: The upper extremities have excellent pulses they are symmetric, no significant petechiae or telangiectasia. No splinter hemorrhages were noted. The lower extremities are free from significant edema. The peripheral pulses were 2+ and symmetric. Neuro: Awake alert oriented to person place and time. There are no acute new gross focal sensory motor deficits. Skin in general there is some thinning with no significant open lesions except onto the left buttocks. Over the dermatome of the buttocks is the vesicular rash that has improved. It is mostly dried up today. It is not yet very crusted. Is no significant drainage noted today. It is less tender. - Labs CBC & Chem 7: 06/12/16 07:32 06/12/16 07:32 Labs: Abnormal Lab Results - Last 24 Hours (Table) 06/13/16 06/13/16 06/14/16 Range/Units 16:51 21:00 07:07 POC Glucose (mg/dL) 116 H 193 H 137 H (75-99) mg/dL 06/14/16 Range/Units 12:42 POC Glucose (mg/dL) 161 H (75-99) mg/dL Microbiology - Last 24 Hours (Table) 06/14/16 07:50 Gram Stain - Preliminary Sputum Sputum Culture - Preliminary Laboratory Results WBC 11.4 k/uL (3.8-10.6) H 06/12/16 07:32 RBC 5.03 m/uL (4.30-5.90) 06/12/16 07:32 Hgb 14.6 gm/dL (13.0-17.5) 06/12/16 07:32 Hct 44.4 % (39.0-53.0) 06/12/16 07:32 MCV 88.2 fL (80.0-100.0) 06/12/16 07:32 MCH 28.9 pg (25.0-35.0) 06/12/16 07:32 MCHC 32.8 g/dL (31.0-37.0) 06/12/16 07:32 RDW 13.8 % (11.5-15.5) 06/12/16 07:32 Plt Count 127 k/uL (150-450) L 06/12/16 07:32 Neutrophils % 93 % 06/10/16 07:27 Lymphocytes % 2 % 06/10/16 07:27 Monocytes % 4 % 06/10/16 07:27 Eosinophils % 0 % 06/10/16 07:27 Basophils % 0 % 06/10/16 07:27 Neutrophils # 10.8 k/uL (1.3-7.7) H 06/10/16 07:27 Lymphocytes # 0.2 k/uL (1.0-4.8) L 06/10/16 07:27 Monocytes # 0.5 k/uL (0-1.0) 06/10/16 07:27 Eosinophils # 0.0 k/uL (0-0.7) 06/10/16 07:27 Basophils # 0.0 k/uL (0-0.2) 06/10/16 07:27 Sodium 135 mmol/L (137-145) L 06/12/16 07:32 Potassium 4.8 mmol/L (3.5-5.1) 06/12/16 07:32 Chloride 101 mmol/L (98-107) 06/12/16 07:32 Carbon Dioxide 30 mmol/L (22-30) 06/12/16 07:32 Anion Gap 4 mmol/L 06/12/16 07:32 BUN 29 mg/dL (9-20) H 06/12/16 07:32 Creatinine 0.69 mg/dL (0.66-1.25) 06/12/16 07:32 Est GFR (MDRD) Af Amer >60 (>60 ml/min/1.73 sqM) 06/12/16 07:32 Est GFR (MDRD) Non-Af >60 (>60 ml/min/1.73 sqM) 06/12/16 07:32 Glucose 135 mg/dL (74-99) H 06/12/16 07:32 POC Glucose (mg/dL) 161 mg/dL (75-99) H 06/14/16 12:42 POC Glu Onsite Case Manager ID Kel Baez 06/14/16 12:[address] Glu mg/dL 123 mg/dL 06/05/16 07:47 Hemoglobin A1c 5.9 % (4.2-6.1) 06/05/16 07:47 Calcium 8.4 mg/dL (8.4-10.2) 06/12/16 07:32 Total Bilirubin 0.6 mg/dL (0.2-1.3) 06/06/16 06:58 Conjugated Bilirubin 0.0 mg/dL (0.0-0.3) 06/06/16 06:58 Unconjugated Bilirubin 0.4 mg/dL (0.0-1.1) 06/06/16 06:58 Delta Bilirubin 0.2 mg/dL (0.0-0.2) 06/06/16 06:58 AST 14 U/L (17-59) L 06/06/16 06:58 ALT 31 U/L (21-72) 06/06/16 06:58 Alkaline Phosphatase 57 U/L (38-126) 06/06/16 06:58 Total Protein 5.0 g/dL (6.3-8.2) L 06/06/16 06:58 Albumin 2.7 g/dL (3.5-5.0) L 06/06/16 06:58 Urine Color Yellow 06/05/16 16:30 Urine Appearance Clear (Clear) 06/05/16 16:30 Urine pH 6.0 (5.0-8.0) 06/05/16 16:30 Ur Specific [place] 1.026 (1.001-1.035) 06/05/16 16:30 Urine Protein 1+ (Negative) H 06/05/16 16:30 Urine Glucose (UA) Negative (Negative) 06/05/16 16:30 Urine Ketones Negative (Negative) 06/05/16 16:30 Urine Blood Negative (Negative) 06/05/16 16:30 Urine Nitrate Negative (Negative) 06/05/16 16:30 Urine Bilirubin Negative (Negative) 06/05/16 16:30 Urine Urobilinogen <2.0 mg/dL (<2.0) 06/05/16 16:30 Ur Leukocyte Esterase Negative (Negative) 06/05/16 16:30 Urine RBC 2 /hpf (0-5) 06/05/16 16:30 Urine WBC 2 /hpf (0-5) 06/05/16 16:30 Ur Squamous Epith Cells <1 /hpf (0-4) 06/05/16 16:30 Urine Bacteria Rare /hpf (None) H 06/05/16 16:30 Hyaline Casts 4 /lpf (0-2) H 06/05/16 16:30 Urine Mucus Rare /hpf (None) H 06/05/16 16:30 Vancomycin Trough 21.9 ug/mL 06/12/16 07:32 Influenza Type A RNA Not Detected (Not Detectd) 06/08/16 21:30 Influenza Type B (PCR) Not Detected (Not Detectd) 06/08/16 21:30 Microbiology 06/14/16 07:50 Sputum Gram Stain - Preliminary 06/14/16 07:50 Sputum Sputum Culture - Preliminary Assessment and Plan (1) Varicella zoster Narrative/Plan: 75-year-old male who has a history of significant underlying COPD transferred from outside hospital for treatment of his underlying significant shortness of breath. Receiving antibiotic therapy and steroids. With this is now developed evidence of the varicella-zoster onto the left buttocks and a single dermatome. He fortunately is not in severe pain. Antiviral therapy with Valtrex is added. Complete 7 days of therapy. He is also receiving steroid therapy for his COPD. And should remain on a steroid tapering dose with his Valtrex at discharge. Fortunately pain control is not an issue. Minimal leukocytosis occurring likely in the bases of his steroid therapy as well as the current viral infection. Chest CTA at admission is reviewed without evidence of significant pulmonary embolus or pneumonia. Antibiotic therapy is descalated to trimethoprim sulfamethoxazole. Status: Acute (2) COPD with exacerbation Status: Acute
[2016-06-14 17:25] LABS: Glucose,Whole Blood 111 mg/dL (75-99)
[2016-06-14 20:06] LABS: Glucose,Whole Blood 143 mg/dL (75-99)
[2016-06-14] MEDS: MONTELUKAST 10 MG TAB PO SCH (21:12)
[2016-06-14] MEDS: MELATONIN 3 MG TABLET PO SCH (21:12)
[2016-06-14] MEDS: ALPRAZolam 0.25 MG TAB PO PRN (21:15)
--- NOTE | 2016-06-14 22:05 | P.PN ---
Subjective This is a very pleasant 75-year-old gentleman with a known history of chronic obstructive pulmonary disease and pulmonary fibrosis. He has a 40+ year pack per day smoking history. He also has a history of hyperlipidemia, hypertension, previous myocardial infarction status post coronary artery bypass grafting. He was admitted here in 06/04/2016 after being initially treated in [place] for COPD exacerbation without any significant improvement. He has been having ongoing worsening shortness of breath with dyspnea on minimal exertion. A CT angiogram ruled out pulmonary embolism. There was severe centrilobular emphysema noted. There is nodular peripheral parenchymal scarring in the left lung base. The patient is seen again today 06/09/2016 in follow-up on the regular medical floor. He is awake and alert in no acute distress. He states his breathing is slightly better today as compared to yesterday. Slow to progress. He is maintaining good O2 saturations in the mid 90s on 2 L/m per nasal cannula. Afebrile. No leukocytosis. The patient is seen again today in follow-up 06/10/2016. He is definitely feeling better today as compared to yesterday. He is less short of breath. He has a loose nonproductive cough. He is getting closer to his baseline. He's been up ambulating without significant distress. He is maintaining good O2 saturations in the mid 90s on room air. He remains afebrile. On 06/11/2016 the patient is being seen in follow-up. COPD gradually improving. No major respiratory difficulties. His cough remains congested. He was inquiring about the bronchoscopy, however, we did not think this will be needed and we think the patient will ultimately recover with medical treatment. He remains on bronchodilators and systemic steroids. The patient is seen again today 06/12/2016 in follow-up on the regular medical floor. He is awake and alert in no acute distress. He has been ambulating up and down the hallway with his oxygen on. He states he is breathing slightly better today as compared to yesterday. Still not quite back to his baseline. On the patient is being seen in follow-up. Continues to have some congested cough. No significant sputum production. He is on bronchodilators. He is on systemic steroids and he is receiving 40 mg of IV Solu Medrol every 8 hours. Antibiotic therapy has been simplify to Bactrim orally knowing that the CAT scan of the chest was negative for any acute pneumonia or pulmonary infiltrates. The patient is being seen by ID. The patient has zoster over his buttock on the left and the patient is taken Valtrex. On 06/14/2016 I'm seeing this patient in follow-up. He continues to have a congested cough. Unable to bring up much sputum. I would say there is no major improvement since yesterday. His still being treated for his acute COPD exacerbation. His baseline COPD severe and I will needed based on hold. This later stage to quantify the severity of his COPD. He is also being treated for shingles. He is on Valtrex. ID is on the case. Objective - Vital Signs Vital signs: Vital Signs Temp 97.2 F L 06/14/16 15:00 Pulse 94 06/14/16 16:50 Resp 18 06/14/16 15:40 BP 163/85 06/14/16 15:00 Pulse Ox 97 06/14/16 15:00 Intake & Output 06/14/16 06/14/16 06/15/16 06:59 18:59 06:59 Intake Total 40 1050 Output Total 200 Balance 40 850 Weight 81.647 kg Intake: IV 40 NS @ 20 ml/hr 40 Intake, IV Titration 250 Amount Vancomycin 1,500 mg In 250 Sodium Chloride 0.9% 250 ml @ 125 mls/hr IVPB Q12HR [facility] Rx#:[id number] Oral 800 Output: Urine 200 Other: Voiding Method Toilet Toilet Urinal Urinal # Voids 1 3 - Exam Head exam was generally normal. There was no scleral icterus or corneal arcus. Mucous membranes were moist.Neck was supple and without jugular venous distension, thyromegaly, or carotid bruits. Carotids were easily palpable bilaterally. There was no adenopathy. Lung sounds are diminished bilaterally along with some few scattered expiratory wheeze.Cardiac exam revealed the PMI to be normally situated and sized. The rhythm was regular and no extrasystoles were noted during several minutes of auscultation. The first and second heart sounds were normal and physiologic splitting of the second heart sound was noted. There were no murmurs, rubs, clicks, or gallops.Abdominal exam revealed normal bowel sounds. The abdomen was soft, non-tender, and without masses, organomegaly, or appreciable enlargement of the abdominal aorta.Examination of the extremities revealed easily palpable radial, femoral and pedal pulses. There was no cyanosis, clubbing or edema. - Labs CBC & Chem 7: 06/12/16 07:32 06/12/16 07:32 Labs: Abnormal Lab Results - Last 24 Hours (Table) 06/14/16 06/14/16 06/14/16 Range/Units 07:07 12:42 17:22 POC Glucose (mg/dL) 137 H 161 H 111 H (75-99) mg/dL 06/14/16 Range/Units 20:04 POC Glucose (mg/dL) 143 H (75-99) mg/dL Microbiology - Last 24 Hours (Table) 06/14/16 07:50 Gram Stain - Preliminary Sputum Sputum Culture - Preliminary Assessment and Plan Plan: Impression: #1 Acute exacerbation of severe centrilobular emphysema/COPD. the patient is improving slowly. The patient is on a combination of bronchodilators and systemic steroids. Antibiotic coverage with Bactrim. #2 Acute hypoxic respiratory failure secondary to above. #3 History of 40 pack year smoking history however quit approximately 18 years ago. #4 Coronary artery disease with previous coronary artery bypass grafting. #5 Hyperlipidemia. #6 Hypertension. #7 zoster involving the buttock Plan The patient continues to have some leukocytosis. This could be essentially steroid-induced. Continue antimicrobial agents including Bactrim and Valtrex. Continue the systemic steroids. Continue the bronchodilators. Increased level of activity as tolerated. Consider discharge in the next 24-48 hours.
[2016-06-15] MEDS: FORMOTEROL FUMARATE 20 MCG/2 ML NEBU INHALATION SCH ×2 (07:23→19:04)
[2016-06-15] MEDS: IPRATROPIUM-ALBUTEROL 3 ML NEB INHALATION SCH ×4 (07:23→19:04)
[2016-06-15] MEDS: BUDESONIDE 1 MG/2 ML NEBU INHALATION SCH ×2 (07:24→19:04)
[2016-06-15 07:31] LABS: Glucose,Whole Blood 74 mg/dL (75-99)
[2016-06-15] MEDS: INSULIN LISPRO (humaLOG) 300 UNIT/3 ML VIAL SQ SCH ×4 (07:43→20:42)
[2016-06-15] MEDS: VANCOMYCIN 1,500 MG in SODIUM CHLORIDE 0.9% 250 ML IVPB SCH (07:45)
[2016-06-15] MEDS: methylPREDNISolone SOD SUCCI 40 MG/ML 1 ML VIAL IV SCH (07:45)
[2016-06-15] MEDS: FAMOTIDINE 20 MG TAB PO SCH ×2 (07:46→20:41)
[2016-06-15] MEDS: BENZONATATE 100 MG CAP PO SCH ×3 (07:46→20:41)
[2016-06-15] MEDS: valACYclovir HCL 1,000 MG TABLET PO SCH ×2 (07:47→20:41)
[2016-06-15] MEDS: ASPIRIN 81 MG CHEW PO SCH (07:47)
[2016-06-15] MEDS: VALSARTAN 80 MG TAB PO SCH ×2 (07:47→20:41)
[2016-06-15] MEDS: SERTRALINE 100 MG TAB PO SCH (07:47)
[2016-06-15] MEDS: SULFAMETHOX-TMP 800-160MG 1 EACH TAB PO SCH ×2 (07:48→20:41)
[2016-06-15] MEDS: POLYETHYLENE GLYCOL 3350 17 GM POWD.PACK PO SCH (07:48)
[2016-06-15] MEDS: amLODIPine 5 MG TAB PO SCH ×2 (07:48→20:41)
[2016-06-15] MEDS: VALSARTAN 40 MG TAB PO SCH ×2 (07:51→20:41)
[2016-06-15] MEDS ORDERED: VANCOMYCIN TROUGH DUE 1 EACH MISC MISCELLANE ONE (08:30)
[2016-06-15] MEDS: ZILEUTON PO SCH ×2 (09:04→20:37)
[2016-06-15] MEDS: HEPARIN SODIUM,PORCINE 5,000 UNIT/ML 1 ML VIAL SQ SCH ×2 (09:05→20:42)
[2016-06-15 12:02] LABS: Glucose,Whole Blood 132 mg/dL (75-99)
--- NOTE | 2016-06-15 12:19 | PN ---
( ). INTERVAL HISTORY: Patient is coughing up quite a bit of phlegm today. The patient's respiratory status did improve significantly compared to yesterday and will switch him to oral steroid and if he is doing well. Patient will be discharged tomorrow. Patient is admitted with COPD and severe tracheobronchitis and patient is also being treated for shingles. Patient is presently on valacyclovir and vancomycin and Bactrim. Antibiotics are being managed by Dr. Jg Wyatt. PHYSICAL EXAMINATION: VITAL SIGNS: Temperature 97.3, pulse of 100, respiratory rate of 17, blood pressure is 150/74, saturating at 96% on 2 L of O2 nasal cannula. GENERAL: The patient is alert and oriented x3, not in any acute distress. Well developed, well nourished. HEENT: Pupils are round and equally reacting to light. EOMI. No scleral icterus. No conjunctival pallor. Normocephalic, atraumatic. No pharyngeal erythema. No thyromegaly. CARDIOVASCULAR: S1 and S2 present. No murmurs, rubs, or gallops. PULMONARY: Decreased breath sounds bilaterally, very minimal expiratory wheezing was appreciated. ABDOMEN: Soft, nontender, nondistended, normoactive bowel sounds. No palpable organomegaly. MUSCULOSKELETAL: No joint swelling or deformity. EXTREMITIES: No cyanosis, clubbing, or pedal edema. NEUROLOGICAL: Gross neurological examination did not reveal any focal deficits. SKIN: No rashes. LABORATORY DATA: None available. ASSESSMENT AND PLAN: .1. Acute exacerbation of chronic obstructive pulmonary disease pain. Continue systemic steroids inhalational treatment. ( ) shingles. 2. Severe tracheobronchitis. 3. Hyperlipidemia. 4. Hypertension. 5. Chronic hypercapnic respiratory failure secondary to chronic obstructive pulmonary disease. PLAN: Continue with present medications. Once his respiratory status improves, patient will be discharged. Patient probably can be discharged tomorrow. [facility]
[2016-06-15] MEDS: MULTIVITAMINS, THERA 1 EACH TAB PO SCH (13:38)
[2016-06-15] MEDS: predniSONE 20 MG TAB PO SCH (13:38)
[2016-06-15] MEDS: CHOLECALCIFEROL 1,000 UNIT TAB PO SCH (13:38)
--- NOTE | 2016-06-15 15:36 | P.PN ---
Subjective Principal diagnosis: Acute exacerbation of COPD This is a very pleasant 75-year-old gentleman with a known history of chronic obstructive pulmonary disease and pulmonary fibrosis. He has a 40+ year pack per day smoking history. He also has a history of hyperlipidemia, hypertension, previous myocardial infarction status post coronary artery bypass grafting. He was admitted here in 06/04/2016 after being initially treated in [place] for COPD exacerbation without any significant improvement. He has been having ongoing worsening shortness of breath with dyspnea on minimal exertion. A CT angiogram ruled out pulmonary embolism. There was severe centrilobular emphysema noted. There is nodular peripheral parenchymal scarring in the left lung base. The patient is seen again today 06/09/2016 in follow-up on the regular medical floor. He is awake and alert in no acute distress. He states his breathing is slightly better today as compared to yesterday. Slow to progress. He is maintaining good O2 saturations in the mid 90s on 2 L/m per nasal cannula. Afebrile. No leukocytosis. The patient is seen again today in follow-up 06/10/2016. He is definitely feeling better today as compared to yesterday. He is less short of breath. He has a loose nonproductive cough. He is getting closer to his baseline. He's been up ambulating without significant distress. He is maintaining good O2 saturations in the mid 90s on room air. He remains afebrile. On 06/11/2016 the patient is being seen in follow-up. COPD gradually improving. No major respiratory difficulties. His cough remains congested. He was inquiring about the bronchoscopy, however, we did not think this will be needed and we think the patient will ultimately recover with medical treatment. He remains on bronchodilators and systemic steroids. The patient is seen again today 06/12/2016 in follow-up on the regular medical floor. He is awake and alert in no acute distress. He has been ambulating up and down the hallway with his oxygen on. He states he is breathing slightly better today as compared to yesterday. Still not quite back to his baseline. On the patient is being seen in follow-up. Continues to have some congested cough. No significant sputum production. He is on bronchodilators. He is on systemic steroids and he is receiving 40 mg of IV Solu Medrol every 8 hours. Antibiotic therapy has been simplify to Bactrim orally knowing that the CAT scan of the chest was negative for any acute pneumonia or pulmonary infiltrates. The patient is being seen by ID. The patient has zoster over his buttock on the left and the patient is taken Valtrex. On 06/14/2016 I'm seeing this patient in follow-up. He continues to have a congested cough. Unable to bring up much sputum. I would say there is no major improvement since yesterday. His still being treated for his acute COPD exacerbation. His baseline COPD severe and I will needed based on hold. This later stage to quantify the severity of his COPD. He is also being treated for shingles. He is on Valtrex. ID is on the case. Patient was seen on 06/15/2016, continues to have some productive cough, yellow phlegm, continues to cough and wheeze, in spite of multiple bronchodilators and antibiotics as ordered by Dr. Tobias. Sputum so far is nondiagnostic. Chest x-ray on admission showed mostly evidence of emphysema/centrilobular emphysema. And nodular pleural parenchymal scarring at the left lung base. Objective - Vital Signs Vital signs: Vital Signs Temp 97.3 F L 06/15/16 07:00 Pulse 104 H 06/15/16 11:32 Resp 17 06/15/16 07:00 BP 150/74 06/15/16 07:00 Pulse Ox 96 06/15/16 07:00 Intake & Output 06/14/16 06/15/16 06/15/16 18:59 06:59 18:59 Intake Total 1050 712 Output Total 200 Balance 850 712 Weight 81.647 kg Intake: Intake, IV Titration 250 250 Amount Vancomycin 1,500 mg In 250 250 Sodium Chloride 0.9% 250 ml @ 125 mls/hr IVPB Q12HR [facility] Rx#:[id number] Oral 800 462 Output: Urine 200 Other: Voiding Method Toilet Toilet Toilet Urinal Urinal Urinal # Voids 3 1 - Exam Head exam was generally normal. There was no scleral icterus or corneal arcus. Mucous membranes were moist.Neck was supple and without jugular venous distension, thyromegaly, or carotid bruits. Carotids were easily palpable bilaterally. There was no adenopathy. Lung sounds are diminished bilaterally along with some few scattered expiratory wheeze.Cardiac exam revealed the PMI to be normally situated and sized. The rhythm was regular and no extrasystoles were noted during several minutes of auscultation. The first and second heart sounds were normal and physiologic splitting of the second heart sound was noted. There were no murmurs, rubs, clicks, or gallops.Abdominal exam revealed normal bowel sounds. The abdomen was soft, non-tender, and without masses, organomegaly, or appreciable enlargement of the abdominal aorta.Examination of the extremities revealed easily palpable radial, femoral and pedal pulses. There was no cyanosis, clubbing or edema. - Labs CBC & Chem 7: 06/12/16 07:32 06/12/16 07:32 Labs: Abnormal Lab Results - Last 24 Hours (Table) 06/14/16 06/14/16 06/15/16 Range/Units 17:22 20:04 07:23 POC Glucose (mg/dL) 111 H 143 H 74 L (75-99) mg/dL Vancomycin Trough ug/mL 06/15/16 06/15/16 Range/Units 08:51 11:52 POC Glucose (mg/dL) 132 H (75-99) mg/dL Vancomycin Trough 40.5 H* ug/mL Assessment and Plan Plan: #1 Acute exacerbation of severe centrilobular emphysema/COPD. the patient is improving slowly. The patient is on a combination of bronchodilators and systemic steroids. Antibiotic coverage with Bactrim. #2 Acute hypoxic respiratory failure secondary to above. #3 History of 40 pack year smoking history however quit approximately 18 years ago. #4 Coronary artery disease with previous coronary artery bypass grafting. #5 Hyperlipidemia. #6 Hypertension. #7 zoster involving the buttock Recommendation: Continue treatment plan, consider discharge planning in the next 24-48 hours. Time with Patient: Less than 30
[2016-06-15 17:48] LABS: Glucose,Whole Blood 188 mg/dL (75-99)
--- NOTE | 2016-06-15 18:54 | P.PN ---
Subjective Principal diagnosis: Rash left buttocks 75-year-old male who has a known history of COPD that is oxygen dependent as well as underlying hypertension and hypertensive cardiovascular disease. Presented to [facility] because of significant shortness of breath. Because he was so profoundly short of breath and was transferred to our facility for care under pulmonology. His respiratory medications have been altered in his been treated with steroid therapy. He relates that he still feels somewhat short of breath but better than admission. However is now developed evidence significant rash onto his left buttocks. It is somewhat painful in nature. It started to drain and the last several hours. Because of the painful draining rash the infectious diseases consultation was requested. This pleasant gentleman is known to have the advanced COPD and pulmonology is concerned that he has pulmonary fibrosis. The patient relates to not having high-grade fever, chills or rigors at this time. He does have cough barking in nature at times without much sputum production. No hemoptysis. His weight has been stable. Respiratory status is improved today. He is less short of breath. Less cough. Objective - Vital Signs Vital signs: Vital Signs Temp 97.9 F 06/15/16 15:00 Pulse 100 06/15/16 16:04 Resp 17 06/15/16 15:00 BP 130/48 06/15/16 15:00 Pulse Ox 97 06/15/16 15:00 Intake & Output 06/14/16 06/15/16 06/15/16 18:59 06:59 18:59 Intake Total 1050 712 720 Output Total 200 Balance 850 712 720 Weight 81.647 kg Intake: Intake, IV Titration 250 250 Amount Vancomycin 1,500 mg In 250 250 Sodium Chloride 0.9% 250 ml @ 125 mls/hr IVPB Q12HR [facility] Rx#:[id number] Oral 800 462 720 Output: Urine 200 Other: Voiding Method Toilet Toilet Toilet Urinal Urinal Urinal # Voids 3 1 3 - Exam Pleasant 75-year-old gentleman sitting upright complaining of some shortness of breath receiving a respiratory treatment. HEENT: Anicteric conjunctiva are pink and moist nasal mucosa grossly intact without significant lesions, there is no thrush. Neck: The neck is supple without significant lymphadenopathy or thyromegaly. Lungs: Symmetrical bilateral air entry with expiratory wheezes that are scattered throughout the lung cordova. No sherlyn bronchial sounds minimal dullness at the bases, no egophony. Heart: Regular rate and rhythm with an audible S1-S2, no S3 no S4. There is no significant murmur click or rub, PMI was nondisplaced. Abdomen: Positive bowel sounds soft and nontender without palpable masses or organomegaly. There was no guarding or rebound. Extremities: The upper extremities have excellent pulses they are symmetric, no significant petechiae or telangiectasia. No splinter hemorrhages were noted. The lower extremities are free from significant edema. The peripheral pulses were 2+ and symmetric. Neuro: Awake alert oriented to person place and time. There are no acute new gross focal sensory motor deficits. Skin in general there is some thinning with no significant open lesions except onto the left buttocks. Over the dermatome of the buttocks is the vesicular rash that has improved. It is mostly dried up today. It is not yet very crusted. Is no significant drainage noted today. It is less tender. - Labs CBC & Chem 7: 06/12/16 07:32 06/12/16 07:32 Labs: Abnormal Lab Results - Last 24 Hours (Table) 06/14/16 06/15/16 06/15/16 Range/Units 20:04 07:23 08:51 POC Glucose (mg/dL) 143 H 74 L (75-99) mg/dL Vancomycin Trough 40.5 H* ug/mL 06/15/16 06/15/16 Range/Units 11:52 17:38 POC Glucose (mg/dL) 132 H 188 H (75-99) mg/dL Vancomycin Trough ug/mL Laboratory Results WBC 11.4 k/uL (3.8-10.6) H 06/12/16 07:32 RBC 5.03 m/uL (4.30-5.90) 06/12/16 07:32 Hgb 14.6 gm/dL (13.0-17.5) 06/12/16 07:32 Hct 44.4 % (39.0-53.0) 06/12/16 07:32 MCV 88.2 fL (80.0-100.0) 06/12/16 07:32 MCH 28.9 pg (25.0-35.0) 06/12/16 07:32 MCHC 32.8 g/dL (31.0-37.0) 06/12/16 07:32 RDW 13.8 % (11.5-15.5) 06/12/16 07:32 Plt Count 127 k/uL (150-450) L 06/12/16 07:32 Neutrophils % 93 % 06/10/16 07:27 Lymphocytes % 2 % 06/10/16 07:27 Monocytes % 4 % 06/10/16 07:27 Eosinophils % 0 % 06/10/16 07: Basophils % 0 % 06/10/16 07:27 Neutrophils # 10.8 k/uL (1.3-7.7) H 06/10/16 07:27 Lymphocytes # 0.2 k/uL (1.0-4.8) L 06/10/16 07:27 Monocytes # 0.5 k/uL (0-1.0) 06/10/16 07:27 Eosinophils # 0.0 k/uL (0-0.7) 06/10/16 07:27 Basophils # 0.0 k/uL (0-0.2) 06/10/16 07:27 Sodium 135 mmol/L (137-145) L 06/12/16 07:32 Potassium 4.8 mmol/L (3.5-5.1) 06/12/16 07:32 Chloride 101 mmol/L (98-107) 06/12/16 07:32 Carbon Dioxide 30 mmol/L (22-30) 06/12/16 07:32 Anion Gap 4 mmol/L 06/12/16 07:32 BUN 29 mg/dL (9-20) H 06/12/16 07:32 Creatinine 0.69 mg/dL (0.66-1.25) 06/12/16 07:32 Est GFR (MDRD) Af Amer >60 (>60 ml/min/1.73 sqM) 06/12/16 07:32 Est GFR (MDRD) Non-Af >60 (>60 ml/min/1.73 sqM) 06/12/16 07:32 Glucose 135 mg/dL (74-99) H 06/12/16 07:32 POC Glucose (mg/dL) 188 mg/dL (75-99) H 06/15/16 17:38 POC Glu [employer] Lizbeth Bronson M 06/15/16 17:[address] Glu mg/dL 123 mg/dL 06/05/16 07:47 Hemoglobin A1c 5.9 % (4.2-6.1) 06/05/16 07:47 Calcium 8.4 mg/dL (8.4-10.2) 06/12/16 07:32 Total Bilirubin 0.6 mg/dL (0.2-1.3) 06/06/16 06:58 Conjugated Bilirubin 0.0 mg/dL (0.0-0.3) 06/06/16 06:58 Unconjugated Bilirubin 0.4 mg/dL (0.0-1.1) 06/06/16 06:58 Delta Bilirubin 0.2 mg/dL (0.0-0.2) 06/06/16 06:58 AST 14 U/L (17-59) L 06/06/16 06:58 ALT 31 U/L (21-72) 06/06/16 06:58 Alkaline Phosphatase 57 U/L (38-126) 06/06/16 06:58 Total Protein 5.0 g/dL (6.3-8.2) L 06/06/16 06:58 Albumin 2.7 g/dL (3.5-5.0) L 06/06/16 06:58 Urine Color Yellow 06/05/16 16:30 Urine Appearance Clear (Clear) 06/05/16 16:30 Urine pH 6.0 (5.0-8.0) 06/05/16 16:30 Ur Specific [place] 1.026 (1.001-1.035) 06/05/16 16:30 Urine Protein 1+ (Negative) H 06/05/16 16:30 Urine Glucose (UA) Negative (Negative) 06/05/16 16:30 Urine Ketones Negative (Negative) 06/05/16 16:30 Urine Blood Negative (Negative) 06/05/16 16:30 Urine Nitrate Negative (Negative) 06/05/16 16:30 Urine Bilirubin Negative (Negative) 06/05/16 16:30 Urine Urobilinogen <2.0 mg/dL (<2.0) 06/05/16 16:30 Ur Leukocyte Esterase Negative (Negative) 06/05/16 16:30 Urine RBC 2 /hpf (0-5) 06/05/16 16:30 Urine WBC 2 /hpf (0-5) 06/05/16 16:30 Ur Squamous Epith Cells <1 /hpf (0-4) 06/05/16 16:30 Urine Bacteria Rare /hpf (None) H 06/05/16 16:30 Hyaline Casts 4 /lpf (0-2) H 06/05/16 16:30 Urine Mucus Rare /hpf (None) H 06/05/16 16:30 Vancomycin Trough 40.5 ug/mL H* 06/15/16 08:51 Influenza Type A RNA Not Detected (Not Detectd) 06/08/16 21:30 Influenza Type B (PCR) Not Detected (Not Detectd) 06/08/16 21:30 Microbiology 06/14/16 07:50 Sputum Gram Stain - Preliminary 06/14/16 07:50 Sputum Sputum Culture - Preliminary Assessment and Plan (1) Varicella zoster Narrative/Plan: 75-year-old male who has a history of significant underlying COPD transferred from outside hospital for treatment of his underlying significant shortness of breath. Receiving antibiotic therapy and steroids. With this is now developed evidence of the varicella-zoster onto the left buttocks and a single dermatome. He fortunately is not in severe pain. Antiviral therapy with Valtrex is added. Complete 7 days of therapy. He is also receiving steroid therapy for his COPD. And should remain on a steroid tapering dose with his Valtrex at discharge. Fortunately pain control is not an issue. Minimal leukocytosis occurring likely in the bases of his steroid therapy as well as the current viral infection. Chest CTA at admission is reviewed without evidence of significant pulmonary embolus or pneumonia. Antibiotic therapy is descalated to trimethoprim sulfamethoxazole. Patient is improving likely be discharged home tomorrow. Status: Acute (2) COPD with exacerbation Status: Acute
[2016-06-15 20:12] LABS: Glucose,Whole Blood 199 mg/dL (75-99)
[2016-06-15] MEDS: MELATONIN 3 MG TABLET PO SCH (20:41)
[2016-06-15] MEDS: MONTELUKAST 10 MG TAB PO SCH (20:41)
[2016-06-15] MEDS: ALPRAZolam 0.25 MG TAB PO PRN (20:41)
[2016-06-15 21:50] VITALS: RESP 16
[2016-06-16] MEDS: IPRATROPIUM-ALBUTEROL 3 ML NEB INHALATION SCH ×3 (07:18→15:09)
[2016-06-16] MEDS: FORMOTEROL FUMARATE 20 MCG/2 ML NEBU INHALATION SCH (07:18)
[2016-06-16] MEDS: BUDESONIDE 1 MG/2 ML NEBU INHALATION SCH (07:18)
[2016-06-16 07:26] LABS: Glucose,Whole Blood 100 mg/dL (75-99)
[2016-06-16 07:59] VITALS: BP 139/71; TEMP 97.1
[2016-06-16] MEDS ORDERED: VANCOMYCIN TROUGH DUE 1 EACH MISC MISCELLANE ONE (08:00)
[2016-06-16] MEDS: INSULIN LISPRO (humaLOG) 300 UNIT/3 ML VIAL SQ SCH ×2 (08:44→12:05)
[2016-06-16] MEDS: ZILEUTON PO SCH (08:45)
[2016-06-16] MEDS: BENZONATATE 100 MG CAP PO SCH (08:46)
[2016-06-16] MEDS: valACYclovir HCL 1,000 MG TABLET PO SCH (08:46)
[2016-06-16] MEDS: VALSARTAN 80 MG TAB PO SCH (08:47)
[2016-06-16] MEDS: SULFAMETHOX-TMP 800-160MG 1 EACH TAB PO SCH (08:47)
[2016-06-16] MEDS: predniSONE 20 MG TAB PO SCH (08:47)
[2016-06-16] MEDS: SERTRALINE 100 MG TAB PO SCH (08:47)
[2016-06-16] MEDS: FAMOTIDINE 20 MG TAB PO SCH (08:47)
[2016-06-16] MEDS: HEPARIN SODIUM,PORCINE 5,000 UNIT/ML 1 ML VIAL SQ SCH (08:48)
[2016-06-16] MEDS: ASPIRIN 81 MG CHEW PO SCH (08:48)
[2016-06-16] MEDS: POLYETHYLENE GLYCOL 3350 17 GM POWD.PACK PO SCH (08:48)
[2016-06-16] MEDS: amLODIPine 5 MG TAB PO SCH (08:48)
[2016-06-16] MEDS: VALSARTAN 40 MG TAB PO SCH (08:49)
[2016-06-16] MEDS ORDERED: predniSONE 20 MG TAB PO SCH (09:00)
[2016-06-16 11:04] LABS: Anion Gap 6 mmol/L; Blood Urea Nitrogen 23 mg/dL (9-20); Calcium 8.5 mg/dL (8.4-10.2); Carbon Dioxide 32 mmol/L (22-30); Chloride 97 mmol/L (98-107); Glucose 100 mg/dL (74-99); Non-African American GFR(MDRD) >60 (>60 ml/min/1.73 sqM); Potassium 4.4 mmol/L (3.5-5.1); Sodium 135 mmol/L (137-145)
[2016-06-16 11:07] VITALS: PULSE 84
[2016-06-16 12:03] LABS: Glucose,Whole Blood 139 mg/dL (75-99)
[2016-06-16] MEDS: CHOLECALCIFEROL 1,000 UNIT TAB PO SCH (12:05)
[2016-06-16] MEDS: MULTIVITAMINS, THERA 1 EACH TAB PO SCH (12:05)
--- NOTE | 2016-06-16 12:51 | DS ---
DATE OF ADMISSION: 06/04/2016 DATE OF DISCHARGE: Patient is admitted secondary to COPD exacerbation and patient has significant improvement today and patient is being discharged on Bactrim. Patient also has shingles secondary to immunosuppression secondary to systemic steroids that has been stable. Antibiotics were taken care of by Dr. Wyatt. The patient was seen and examined on the day of discharge. Vitals are stable. PHYSICAL EXAMINATION: GENERAL: The patient is alert and oriented x3, not in any acute distress. Well developed, well nourished. HEENT: Pupils are round and equally reacting to light. EOMI. No scleral icterus. No conjunctival pallor. Normocephalic, atraumatic. No pharyngeal erythema. No thyromegaly. CARDIOVASCULAR: S1 and S2 present. No murmurs, rubs, or gallops. RESPIRATORY EXAMINATION: Decreased air entry into bilateral lung cordova. The patient does not have any crackles or wheezing. The patient will require home oxygen. ABDOMEN: Soft, nontender, nondistended, normoactive bowel sounds. No palpable organomegaly. MUSCULOSKELETAL: No joint swelling or deformity. EXTREMITIES: No cyanosis, clubbing, or pedal edema. NEUROLOGICAL: Gross neurological examination did not reveal any focal deficits. SKIN: No rashes. FINAL DIAGNOSES: 1. Acute exacerbation of chronic obstructive pulmonary disease. 2. Severe tracheobronchitis. 3. Hyperlipidemia. 4. Hypertension. 5. Shingles in the buttock area. 6. Chronic hypercapnic respiratory failure secondary to chronic obstructive pulmonary disease exacerbation. Patient actually is admitted for acute on chronic hypercapnic respiratory failure. The patient will be discharged today and patient activity as tolerated. Cardiac diet. Follow with Dr. Rosen ( ). Spent greater than 35 minutes in total discharge process.
--- NOTE | 2016-06-16 14:39 | P.PN ---
Subjective This is a very pleasant 75-year-old gentleman with a known history of chronic obstructive pulmonary disease and pulmonary fibrosis. He has a 40+ year pack per day smoking history. He also has a history of hyperlipidemia, hypertension, previous myocardial infarction status post coronary artery bypass grafting. He was admitted here in 06/04/2016 after being initially treated in [place] for COPD exacerbation without any significant improvement. He has been having ongoing worsening shortness of breath with dyspnea on minimal exertion. A CT angiogram ruled out pulmonary embolism. There was severe centrilobular emphysema noted. There is nodular peripheral parenchymal scarring in the left lung base. The patient is seen again today. 2016 in follow-up on the regular medical floor. He is awake and alert in no acute distress. He is finally feeling back to his baseline as far as his pulmonary status is concerned. He's been up ambulating in the hallway without distress. He is anxious to go home. Objective - Vital Signs Vital signs: Vital Signs Temp 97.1 F L 06/16/16 07:00 Pulse 84 06/16/16 11:07 Resp 16 06/16/16 08:00 BP 139/71 06/16/16 07:00 Pulse Ox 96 06/16/16 07:00 Intake & Output 06/15/16 06/16/16 06/16/16 18:59 06:59 18:59 Intake Total 720 760 Balance 720 760 Weight 81.647 kg Intake: Oral 720 760 Other: Voiding Method Toilet Toilet Toilet Urinal Urinal Urinal # Voids 3 1 - Exam GENERAL EXAM: Alert, fairly comfortable in no apparent distress. HEAD: Normocephalic. EYES: Normal reaction of pupils, equal size. NOSE: Clear with pink turbinates. THROAT: No erythema or exudates. NECK: No masses, no JVD. CHEST: No chest wall deformity. LUNGS: Equal air entry with bilateral wheezing, diminished throughout. CVS: S1 and S2 normal with no audible murmurs, regular rhythm. ABDOMEN: No hepatosplenomegaly, normal bowel sounds, no guarding or rigidity. SPINE: No scoliosis or deformity SKIN: Crusty lesions on the left buttocks secondary to zoster. CENTRAL NERVOUS SYSTEM: No focal deficits, tone is normal in all 4 extremities. Extremities: There is no significant peripheral edema. No clubbing, no cyanosis. Peripheral pulses are intact. - Labs CBC & Chem 7: 06/12/16 07:32 06/16/16 10:14 Labs: Abnormal Lab Results - Last 24 Hours (Table) 06/15/16 06/15/16 06/16/16 Range/Units 17:38 20:10 07:06 Sodium (137-145) mmol/L Chloride (98-107) mmol/L Carbon Dioxide (22-30) mmol/L BUN (9-20) mg/dL Glucose (74-99) mg/dL POC Glucose (mg/dL) 188 H 199 H 100 H (75-99) mg/dL 06/16/16 06/16/16 Range/Units 10:14 12:01 Sodium 135 L (137-145) mmol/L Chloride 97 L (98-107) mmol/L Carbon Dioxide 32 H (22-30) mmol/L BUN 23 H (9-20) mg/dL Glucose 100 H (74-99) mg/dL POC Glucose (mg/dL) 139 H (75-99) mg/dL Microbiology - Last 24 Hours (Table) 06/15/16 11:00 Gram Stain - Preliminary Sputum Assessment and Plan Plan: Impression: #1 Acute exacerbation of severe centrilobular emphysema/COPD. #2 Acute hypoxic respiratory failure secondary to above. #3 History of 40 pack year smoking history however quit approximately 18 years ago. #4 Coronary artery disease with previous coronary artery bypass grafting. #5 Hyperlipidemia. #6 Hypertension. #7 Zoster on the left buttock. Plan: The patient was seen and evaluated by Dr. Hanna. He is cleared for discharge from the pulmonary standpoint. He'll follow-up in our office in [address] Tobias. He'll continue his current pulmonary medications including a prednisone taper and Bactrim. He'll complete his course of Valtrex as well. He is encouraged to call sooner with any recurrence of symptoms or other questions or concerns.
--- NOTE | 2016-06-16 18:56 | P.PN ---
Subjective Principal diagnosis: Rash left buttocks 75-year-old male who has a known history of COPD that is oxygen dependent as well as underlying hypertension and hypertensive cardiovascular disease. Presented to [facility] because of significant shortness of breath. Because he was so profoundly short of breath and was transferred to our facility for care under pulmonology. His respiratory medications have been altered in his been treated with steroid therapy. He relates that he still feels somewhat short of breath but better than admission. However is now developed evidence significant rash onto his left buttocks. It is somewhat painful in nature. It started to drain and the last several hours. Because of the painful draining rash the infectious diseases consultation was requested. This pleasant gentleman is known to have the advanced COPD and pulmonology is concerned that he has pulmonary fibrosis. The patient relates to not having high-grade fever, chills or rigors at this time. He does have cough barking in nature at times without much sputum production. No hemoptysis. His weight has been stable. Respiratory status is improved today. He is less short of breath. Less cough. Objective - Vital Signs Vital signs: Vital Signs Temp 97.1 F L 06/16/16 07:00 Pulse 84 06/16/16 11:07 Resp 16 06/16/16 08:00 BP 139/71 06/16/16 07:00 Pulse Ox 96 06/16/16 07:00 Intake & Output 06/15/16 06/16/16 06/16/16 18:59 06:59 18:59 Intake Total 720 760 Balance 720 760 Weight 81.647 kg Intake: Oral 720 760 Other: Voiding Method Toilet Toilet Toilet Urinal Urinal Urinal # Voids 3 1 - Exam Pleasant 75-year-old gentleman sitting upright complaining of some shortness of breath receiving a respiratory treatment. HEENT: Anicteric conjunctiva are pink and moist nasal mucosa grossly intact without significant lesions, there is no thrush. Neck: The neck is supple without significant lymphadenopathy or thyromegaly. Lungs: Symmetrical bilateral air entry with expiratory wheezes that are scattered throughout the lung cordova. No sherlyn bronchial sounds minimal dullness at the bases, no egophony. Heart: Regular rate and rhythm with an audible S1-S2, no S3 no S4. There is no significant murmur click or rub, PMI was nondisplaced. Abdomen: Positive bowel sounds soft and nontender without palpable masses or organomegaly. There was no guarding or rebound. Extremities: The upper extremities have excellent pulses they are symmetric, no significant petechiae or telangiectasia. No splinter hemorrhages were noted. The lower extremities are free from significant edema. The peripheral pulses were 2+ and symmetric. Neuro: Awake alert oriented to person place and time. There are no acute new gross focal sensory motor deficits. Skin in general there is some thinning with no significant open lesions except onto the left buttocks. Over the dermatome of the buttocks is the vesicular rash that has improved. It is mostly dried up today. It is crusted. Is no significant drainage noted today. It is less tender. - Labs CBC & Chem 7: 06/12/16 07:32 06/16/16 10:14 Labs: Abnormal Lab Results - Last 24 Hours (Table) 06/15/16 06/16/16 06/16/16 Range/Units 20:10 07:06 10:14 Sodium 135 L (137-145) mmol/L Chloride 97 L (98-107) mmol/L Carbon Dioxide 32 H (22-30) mmol/L BUN 23 H (9-20) mg/dL Glucose 100 H (74-99) mg/dL POC Glucose (mg/dL) 199 H 100 H (75-99) mg/dL 06/16/16 Range/Units 12:01 Sodium (137-145) mmol/L Chloride (98-107) mmol/L Carbon Dioxide (22-30) mmol/L BUN (9-20) mg/dL Glucose (74-99) mg/dL POC Glucose (mg/dL) 139 H (75-99) mg/dL Microbiology - Last 24 Hours (Table) 06/15/16 11:00 Gram Stain - Preliminary Sputum Sputum Culture - Preliminary Pseudomonas spec Laboratory Results WBC 11.4 k/uL (3.8-10.6) H 06/12/16 07:32 RBC 5.03 m/uL (4.30-5.90) 06/12/16 07:32 Hgb 14.6 gm/dL (13.0-17.5) 06/12/16 07:32 Hct 44.4 % (39.0-53.0) 06/12/16 07:32 MCV 88.2 fL (80.0-100.0) 06/12/16 07:32 MCH 28.9 pg (25.0-35.0) 06/12/16 07:32 MCHC 32.8 g/dL (31.0-37.0) 06/12/16 07:32 RDW 13.8 % (11.5-15.5) 06/12/16 07:32 Plt Count 127 k/uL (150-450) L 06/12/16 07:32 Neutrophils % 93 % 06/10/16 07:27 Lymphocytes % 2 % 06/10/16 07:27 Monocytes % 4 % 06/10/16 07:27 Eosinophils % 0 % 06/10/16 07: Basophils % 0 % 06/10/16 07:27 Neutrophils # 10.8 k/uL (1.3-7.7) H 06/10/16 07:27 Lymphocytes # 0.2 k/uL (1.0-4.8) L 06/10/16 07:27 Monocytes # 0.5 k/uL (0-1.0) 06/10/16 07:27 Eosinophils # 0.0 k/uL (0-0.7) 06/10/16 07:27 Basophils # 0.0 k/uL (0-0.2) 06/10/16 07:27 Sodium 135 mmol/L (137-145) L 06/16/16 10:14 Potassium 4.4 mmol/L (3.5-5.1) 06/16/16 10:14 Chloride 97 mmol/L (98-107) L 06/16/16 10:14 Carbon Dioxide 32 mmol/L (22-30) H 06/16/16 10:14 Anion Gap 6 mmol/L 06/16/16 10:14 BUN 23 mg/dL (9-20) H 06/16/16 10:14 Creatinine 0.68 mg/dL (0.66-1.25) 06/16/16 10:14 Est GFR (MDRD) Af Amer >60 (>60 ml/min/1.73 sqM) 06/16/16 10:14 Est GFR (MDRD) Non-Af >60 (>60 ml/min/1.73 sqM) 06/16/16 10:14 Glucose 100 mg/dL (74-99) H 06/16/16 10:14 POC Glucose (mg/dL) 139 mg/dL (75-99) H 06/16/16 12:01 POC Glu [employer] Lizbeth Bronson M 06/16/16 12:[address] Glu mg/dL 123 mg/dL 06/05/16 07:47 Hemoglobin A1c 5.9 % (4.2-6.1) 06/05/16 07:47 Calcium 8.5 mg/dL (8.4-10.2) 06/16/16 10:14 Total Bilirubin 0.6 mg/dL (0.2-1.3) 06/06/16 06:58 Conjugated Bilirubin 0.0 mg/dL (0.0-0.3) 06/06/16 06:58 Unconjugated Bilirubin 0.4 mg/dL (0.0-1.1) 06/06/16 06:58 Delta Bilirubin 0.2 mg/dL (0.0-0.2) 06/06/16 06:58 AST 14 U/L (17-59) L 06/06/16 06:58 ALT 31 U/L (21-72) 06/06/16 06:58 Alkaline Phosphatase 57 U/L (38-126) 06/06/16 06:58 Total Protein 5.0 g/dL (6.3-8.2) L 06/06/16 06:58 Albumin 2.7 g/dL (3.5-5.0) L 06/06/16 06:58 Urine Color Yellow 06/05/16 16:30 Urine Appearance Clear (Clear) 06/05/16 16:30 Urine pH 6.0 (5.0-8.0) 06/05/16 16:30 Ur Specific [place] 1.026 (1.001-1.035) 06/05/16 16:30 Urine Protein 1+ (Negative) H 06/05/16 16:30 Urine Glucose (UA) Negative (Negative) 06/05/16 16:30 Urine Ketones Negative (Negative) 06/05/16 16:30 Urine Blood Negative (Negative) 06/05/16 16:30 Urine Nitrate Negative (Negative) 06/05/16 16:30 Urine Bilirubin Negative (Negative) 06/05/16 16:30 Urine Urobilinogen <2.0 mg/dL (<2.0) 06/05/16 16:30 Ur Leukocyte Esterase Negative (Negative) 06/05/16 16:30 Urine RBC 2 /hpf (0-5) 06/05/16 16:30 Urine WBC 2 /hpf (0-5) 06/05/16 16:30 Ur Squamous Epith Cells <1 /hpf (0-4) 06/05/16 16:30 Urine Bacteria Rare /hpf (None) H 06/05/16 16:30 Hyaline Casts 4 /lpf (0-2) H 06/05/16 16:30 Urine Mucus Rare /hpf (None) H 06/05/16 16:30 Vancomycin Trough 12.5 ug/mL 06/16/16 07:56 Influenza Type A RNA Not Detected (Not Detectd) 06/08/16 21:30 Influenza Type B (PCR) Not Detected (Not Detectd) 06/08/16 21:30 Microbiology 06/15/16 11:00 Sputum Gram Stain - Preliminary 06/15/16 11:00 Sputum Sputum Culture - Preliminary Pseudomonas spec 06/14/16 07:50 Sputum Gram Stain - Preliminary 06/14/16 07:50 Sputum Sputum Culture - Preliminary Assessment and Plan (1) Varicella zoster Narrative/Plan: 75-year-old male who has a history of significant underlying COPD transferred from outside hospital for treatment of his underlying significant shortness of breath. Receiving antibiotic therapy and steroids. With this is now developed evidence of the varicella-zoster onto the left buttocks and a single dermatome. He fortunately is not in severe pain. Antiviral therapy with Valtrex is added. Complete 7 days of therapy. He is also receiving steroid therapy for his COPD. And should remain on a steroid tapering dose with his Valtrex at discharge. Fortunately pain control is not an issue. Minimal leukocytosis occurring likely in the bases of his steroid therapy as well as the current viral infection. Chest CTA at admission is reviewed without evidence of significant pulmonary embolus or pneumonia. Antibiotic therapy is descalated to trimethoprim sulfamethoxazole. Patient discharged home tomorrow. Status: Acute (2) COPD with exacerbation Status: Acute
== END 2016-06-16 13:40 | disposition home health service (06) | DRG 190 ==
LOC: 5MS5E 17:55
PROVIDERS: ADMIT Internal Medicine; ATTEND Internal Medicine
DX: J44.0 Chronic obstructive pulmonary disease with (acute) lower respiratory infection (principal); J96.21 Acute and chronic respiratory failure with hypoxia; J96.22 Acute and chronic respiratory failure with hypercapnia; F03.90 Unspecified dementia, unspecified severity, without behavioral disturbance, psychotic disturbance, mood disturbance, and anxiety; J84.10 Pulmonary fibrosis, unspecified; B02.9 Zoster without complications; I11.9 Hypertensive heart disease without heart failure; J44.1 Chronic obstructive pulmonary disease with (acute) exacerbation; J20.9 Acute bronchitis, unspecified; E78.5 Hyperlipidemia, unspecified; I25.10 Atherosclerotic heart disease of native coronary artery without angina pectoris; I25.2 Old myocardial infarction; J45.909 Unspecified asthma, uncomplicated; T38.0X5A Adverse effect of glucocorticoids and synthetic analogues, initial encounter; K64.9 Unspecified hemorrhoids; R73.9 Hyperglycemia, unspecified; K59.09 Other constipation; K57.90 Diverticulosis of intestine, part unspecified, without perforation or abscess without bleeding; M35.3 Polymyalgia rheumatica; Z99.81 Dependence on supplemental oxygen; Z95.1 Presence of aortocoronary bypass graft; Z87.891 Personal history of nicotine dependence; Z79.899 Other long term (current) drug therapy; Z79.82 Long term (current) use of aspirin; Z82.49 Family history of ischemic heart disease and other diseases of the circulatory system
CPT/HCPCS: 71020; 71275; 80048; 80076; 80202; 81001; 83036; 85025; 85027; 87070; 87077; 87186; 87205; 87502; 94640; 94667; 94760

== ENCOUNTER 2017-10-11 10:20 | Day surgery (SDC) | payer MEDICARE, BC ==
[2017-10-07 10:25] VITALS: BMI 22.8
[~2017-10-11 10:20] MED LIST: ALBUTEROL NEB (CONC) 2.5 MG/0.5 ML INHALATION ONE; ATROPINE SULFATE 0.4 MG/ML 1 ML VIAL IM ONE; LACTATED RINGERS 1,000 ML IV ONE; LACTATED RINGERS 1,000 ML IV SCH; LIDOCAINE 1% 20 ML VIAL (10MG/ML) FOR IV START INTRADERMA PRN; LIDOCAINE 2% (PF) 20 MG/ML 2 ML AMP INHALATION ONE; Pre Op ABX Message 1 EACH MISC MISCELLANE ONE
[2017-10-11 11:16] VITALS: TEMP 97.4
[2017-10-11 11:36] LABS: Glucose,Whole Blood 108 mg/dL (75-99)
[2017-10-11] MEDS ORDERED: fentaNYL (PF) 50 MCG/ML 2 ML AMP ONE (12:00)
[2017-10-11] MEDS ORDERED: PROPOFOL 10 MG/ML 20 ML VIAL IV ONE (12:00)
[2017-10-11] MEDS ORDERED: MIDAZOLAM 2 MG/2 ML VIAL ONE (12:00)
[2017-10-11] MEDS ORDERED: LIDOCAINE 1% INJ 10MG/ML (20 ML MDV) INTRATRACH ONE (12:07)
[2017-10-11 12:28] VITALS: RESP 16
[2017-10-11 13:03] VITALS: BP 148/74; PULSE 86
[2017-10-11 16:06] LABS: Appearance,BF Hazy; Color,BF Colorless; Nucleated Cells, Body Fluid 48 /uL; RBC, Body Fluid 0 /uL
[2017-10-11 16:09] LABS: Mononuclear WBC,Body Fluid 5 %; Polynuclear WBC,Body Fluid 95 %; Total Cells Counted,Body Fluid 100
--- NOTE | 2017-10-11 16:47 | PCN ---
PROCEDURE NOTE PROCEDURE: Bronchoscopy, airway examination, therapeutic lavage, BAL right middle lobe. PREOP DIAGNOSIS: Severe chronic obstructive pulmonary disease with retained secretions. POSTOP DIAGNOSIS: Severe chronic obstructive pulmonary disease with retained secretions. The patient's procedure took place in room #3. There was informed consent. There was universal timeout. Jose Alberto Keller CRNA, provided unconscious sedation with general anesthesia. After the patient was adequately sedated and being fully monitored, the bronchoscope was inserted through the right nostril. It passed through the right nasopharynx into the oropharynx. The hypopharynx was identified and topicalized. The hypopharyngeal structures including anterior commissure, true cords, false cords, arytenoids, piriform sinuses, right and left vallecula and epiglottis all appeared normal. There was some secretions noted in the hypopharynx. They are purulent looking. After topicalization, bronchoscope was pushed through the glottic opening into the trachea. Likewise, there were secretions that were purulent looking throughout the trachea. They were suctioned. Tracheal nelly was sharp. Right and left mainstem were topicalized. The right upper lobe and its 3 segments, right middle lobe and its 2 segments, right lower lobe and its 5 segments, left upper lobe proper and its 2 segments, lingula and its 2 segments and left lower lobe and its 4 segments were all found to be relatively normal save for diffuse moderate bronchitis. There was hyperemia and erythema of the airways. There was some mucosal friability. There were thick yellow secretions noted throughout. They were suctioned without difficulty. After all the secretions were suctioned, the bronchoscope was wedged into the right middle lobe. The BAL took place. Patient tolerated the procedure well. There was no significant bleeding. Again, there was no dominant mass or tumor. After the additional secretions were removed and suctioned, the bronchoscope was withdrawn. The patient will be recovered. There was no immediate complication. MMODL / IJN: [id number] /
== END 2017-10-11 13:23 | disposition home or self-care (01) ==
LOC: ORWHC2ENDO 10:20
PROVIDERS: ATTEND Internal Medicine Critical Care Medicine
DX: J44.9 Chronic obstructive pulmonary disease, unspecified (principal); I25.10 Atherosclerotic heart disease of native coronary artery without angina pectoris; I10 Essential (primary) hypertension; E78.5 Hyperlipidemia, unspecified; I25.2 Old myocardial infarction; Z87.891 Personal history of nicotine dependence; Z95.1 Presence of aortocoronary bypass graft; Z80.42 Family history of malignant neoplasm of prostate; R60.0 Localized edema; Z99.81 Dependence on supplemental oxygen; Z79.2 Long term (current) use of antibiotics; Z79.82 Long term (current) use of aspirin; Z79.51 Long term (current) use of inhaled steroids; Z79.52 Long term (current) use of systemic steroids; Z79.899 Other long term (current) drug therapy
CPT/HCPCS: 94640; 87798 ×3; 87496; 87498; 87529; 88108; 88305; 89050; 87252; 87502; 87634; 87070; 87205; 87116; 87102; 87206; 31624; J2250; J0461; J2001 ×2; J3010; J2704; 87077; 87186